=== PATIENT | female | born 1960 | race Caucasian/White ===

== ENCOUNTER 2016-09-13 16:51 | Inpatient (IN) ==
[2016-09-13] MEDS ORDERED: 0.9 % Sodium Chloride 1,000 ML IVC ONE (17:18)
[2016-09-13] MEDS ORDERED: Ipratropium/Albuterol Neb 3 ML IH ONE ×2 (17:18→18:46)
[2016-09-13] MEDS ORDERED: methylPREDNISolone 125 MG/2 ML VIAL IVP ONE (17:18)
--- NOTE | 2016-09-13 17:31 | Emergency Department Note ---
Disposition Clinical Impression: Acute exacerbation of chronic obstructive airways disease, Acute exacerbation of COPD with asthma, Elevated troponin Acute respiratory failure Qualifiers: Respiratory failure complication: hypoxia Qualified Code(s): J96.01 - Acute respiratory failure with hypoxia Disposition: Admitted As Inpatient Condition: Critical Time of Disposition: 20:00 SOB HPI - General Chief Complaint: ED Shortness of Breath/Dyspnea Stated Complaint: SOB Time Seen by Provider: 09/13/16 16:56 Source: patient, EMS Limitations: no limitations Nursing Notes Reviewed: Yes Vital Signs Reviewed: Yes - History of Present Illness Mrs. Kirkland, a 56yo female, presents from home via POV with concerns of dyspnea. Onset last night with accessory muscle use and pursed lip breathing. Preceeded by appx 1 month of productive cough and "cold" symptoms. Hx asthma and everyday smoker; symptoms not improved with rescue albuterol inhaler. She has no formal diagnosis of COPD. ROS: Positive: Dyspnea, productive cough, respiratory distress Negative: Fever, chills, nausea, vomiting, chest pains, palpitations, back pains , diaphoresis, abdominal pains, changes in bowel or bladder, confusion, dizziness, weakness. - Related Data Home Medications Medication Instructions Recorded Confirmed No Known Home Drugs 09/13/16 09/13/16 Allergies Allergy/AdvReac Type Severity Reaction Status Date / Time No Known Allergies Allergy Verified 09/13/16 18:14 All systems ED: reviewed and negative except as stated. Past Medical History - Past Medical History Medical history: Reports: asthma, hypertension Psychiatric history: Reports: no psych history - Social History Smoking Status: Current every day smoker Smokeless Tobacco Status: No Alcohol use: Reports: none Drug use: Reports: none Physical Exam Vital Signs Reviewed General: Patient is alert, oriented, and in no acute distress. HEENT: No facial asymmetry. Head is normocephalic and atraumatic. PERRLA. Oral mucosa tacky. Trachea midline. Cardiovascular: Heart regular rate and rhythm without clicks, rubs, gallops, or murmurs. No JVD. PMI nondisplaced. Respiratory: Symmetric chest rise with good respiratory effort. Prolonged expiratory phase. Bilateral breath sounds have diffuse wheezing with bibasilar crackles area Abdomen: Scaphoid. Bowel sounds present normoactive x-4 quadrants. Abdomen is soft, nondistended, and nontender. No organomegaly noted. Skin: Warm, dry, intact. Psych: Patient's affect is appropriate for situation. - General Limitations: no limitations General appearance: alert, in no apparent distress Course Course Narrative: Patient presents from home with dyspnea which became acutely worsened last night. History of asthma and current every day smoker; no home oxygen use. Physical exam is concerning for bilateral pneumonia. Chest x-ray does not show pneumonia. Patient is to make an hypoxic - will CTA looking for PE. CTA unremarkable for PE. Lab work is returning. She has leukocytosis of 15.8. She does have elevated troponin of 0.18 without EKG changes. ABG shows hypoxia of 87% on room air. Chest X-Ray 09/13/16 17:18 IMPRESSION: Lungs are mildly hyperinflated with no definite acute disease. D/ / Fly Lynne MD / Fly Lynne MD Interpreting Provider: Fly Lynne MD Chest CTA 09/13/16 18:07 IMPRESSION: No evidence of pulmonary embolism or acute pulmonary abnormality. D/ / Rajat Rajput MD / Rajat Rajput MD Interpreting Provider: Rajat Rajput MD Patient reevaluated. She is markedly improved after nebulizers. Continues to be in respiratory distress; will place on BiPAP. She appears much more comfortable on BiPAP. Spoke with the admitting hospitalist who agrees to accept the patient for continued management. Impression: Acute exacerbation of COPD, acute respiratory failure with hypoxia, elevated troponin Vital Signs Temperature 97.7 F 09/13/16 16:52 Pulse Rate 61 09/13/16 16:52 Respiratory Rate 22 09/13/16 16:52 Blood Pressure 123/73 09/13/16 16:52 O2 Sat by Pulse Oximetry 100 09/13/16 16:52 Temperature 97.7 F 09/13/16 16:52 Pulse Rate 99 09/13/16 18:59 Respiratory Rate 25 09/13/16 19:55 Blood Pressure 100/87 09/13/16 18:59 O2 Sat by Pulse Oximetry 100 09/13/16 19:55 Oxygen Delivery Oxygen Delivery Nasal Cannula Shortness of Breath/Dyspnea - Medical Records Medical records reviewed: Yes I reviewed the patient's medical records. - Lab Data Lab results reviewed: Yes I reviewed the patient's lab results. Result diagrams: 09/13/16 17:28 09/13/16 17:28 Lab Results 09/13/16 09/13/16 09/13/16 Range/Units 17:28 17:28 17:28 WBC 15.8 H (4.3-11.1) K/mcL RBC 4.60 (3.82-4.97) M/mcL Hgb 14.2 (11.5-15.4) g/dL Hct 41.7 (35.3-44.9) % MCV 90.7 (83.0-100.0) fL MCH 30.9 (28.0-33.3) pg MCHC 34.1 (31.6-35.5) g/dL RDW 12.9 (11.5-14.5) % Plt Count 295 (140-400) K/mcL MPV 9.1 L (9.4-12.4) fL Immature Gran % 0.3 (0-4) % Seg Neutrophils % 74.6 % Lymphocytes % 12.4 % Monocytes % 5.1 % Eosinophils % 7.2 % Basophils % 0.4 % Neutrophils # 11.7 H (1.6-8.9) K/mcL Lymphocytes # 2.0 (0.6-4.6) K/mcL Monocytes # 0.8 (0.0-1.3) K/mcL Eosinophils # 1.1 H (0.0-0.6) K/mcL Basophils # 0.1 (0.0-0.2) K/mcL Immature Plt Fraction 2.5 (1.1-6.1) % ABG pH (7.32-7.45) pH Units ABG pCO2 (35-45) mmHg ABG pO2 (85-104) mmHg ABG HCO3 (21-27) mEQ/L ABG Total CO2 (20-26) mEq/L ABG O2 Saturation (95-98) % ABG Base Excess (-2.0 to 3.0) mEq/L Blood Gas Modality Inspired O2 % Sodium 140 (136-145) mEq/L Potassium 3.7 (3.5-4.5) mEq/L Chloride 107 (98-109) mEq/L Carbon Dioxide 23 (19-29) mEq/L BUN 22 H (7-20) mg/dL Creatinine 0.62 (0.57-1.11) mg/dL Est GFR ( Amer) > 60 (> 60) Est GFR (Non-Af Amer) > 60 (> 60) BUN/Creatinine Ratio 35 H (6-26) Glucose 101 H (70-99) mg/dL Calculated Osmolality 293 (280-300) Lactic Acid 1.5 (0.5-2.2) mmol/L Calcium 9.3 (8.6-10.8) mg/dL Troponin I (0-0.03) ng/mL B-Natriuretic Peptide (0-100) pg/mL 09/13/16 09/13/16 09/13/16 Range/Units 17:28 17:28 19:41 WBC (4.3-11.1) K/mcL RBC (3.82-4.97) M/mcL Hgb (11.5-15.4) g/dL Hct (35.3-44.9) % MCV (83.0-100.0) fL MCH (28.0-33.3) pg MCHC (31.6-35.5) g/dL RDW (11.5-14.5) % Plt Count (140-400) K/mcL MPV (9.4-12.4) fL Immature Gran % (0-4) % Seg Neutrophils % % Lymphocytes % % Monocytes % % Eosinophils % % Basophils % % Neutrophils # (1.6-8.9) K/mcL Lymphocytes # (0.6-4.6) K/mcL Monocytes # (0.0-1.3) K/mcL Eosinophils # (0.0-0.6) K/mcL Basophils # (0.0-0.2) K/mcL Immature Plt Fraction (1.1-6.1) % ABG pH 7.34 (7.32-7.45) pH Units ABG pCO2 41 (35-45) mmHg ABG pO2 56 L (85-104) mmHg ABG HCO3 22.1 (21-27) mEQ/L ABG Total CO2 23.4 (20-26) mEq/L ABG O2 Saturation 87 L (95-98) % ABG Base Excess -3.5 L (-2.0 to 3.0) mEq/L Blood Gas Modality RA Inspired O2 21 % Sodium (136-145) mEq/L Potassium (3.5-4.5) mEq/L Chloride (98-109) mEq/L Carbon Dioxide (19-29) mEq/L BUN (7-20) mg/dL Creatinine (0.57-1.11) mg/dL Est GFR ( Amer) (> 60) Est GFR (Non-Af Amer) (> 60) BUN/Creatinine Ratio (6-26) Glucose (70-99) mg/dL Calculated Osmolality (280-300) Lactic Acid (0.5-2.2) mmol/L Calcium (8.6-10.8) mg/dL Troponin I 0.18 H* (0-0.03) ng/mL B-Natriuretic Peptide 69 (0-100) pg/mL - EKG Data EKG attestation: Yes I reviewed and interpreted this EKG. EKG results narrative: EKG dated 09/13/16 at 17:25 interpreted as sinus rhythm with a rate of 63. Normal intervals IL 133, QRS 76, QT/QTC 43/411. Normal axis. Possible subtle ST depression in V4 and V5. Otherwise nonspecific ST-T changes. No previous EKG for comparison. EKG dated 09/13/16 at 18:06 interpreted as sinus rhythm with a rate of 75. Normal intervals IL 142, QRS 92, QT/QTC 41/49. Normal axis. ST findings in V4 and V5 remain consistent compared to earlier EKG today. Critical Care Time Critical Care Time: Yes Total Critical Care Time: 45 Attestation: cc TIME SPENT IN AIRWAY MANAGEMENT WITH NEBULIZERS, MAGNESIUM, STEROIDS, NIPPV WITH BIPAP. Attestation Statement - Attestation Attestation: I examined this patient and my medical decision-making was reviewed with the BODY TECHNICIAN/PAINTER/PA/Advanced Practice Nurse/Resident Physician. I agree with the documented findings, disposition and treatment plan as described except to the extent set forth below. EVAL FOR ACS VS PE VS ASTHMA/COPD ELEVATED TROP WILL DO CTA CHEST TO EVAL FOR PE
[2016-09-13 17:36] LABS: Basophils # 0.1 K/mcL (0.0-0.2); Basophils % 0.4 %; Eosinophils # 1.1 K/mcL (0.0-0.6); Eosinophils % 7.2 %; Hematocrit 41.7 % (35.3-44.9); Hemoglobin 14.2 g/dL (11.5-15.4); Immature Granulocytes % 0.3 % (0-4); Immature Platelets 2.5 % (1.1-6.1); Lymphocytes % 12.4 %; Mean Corpuscular HGB Conc 34.1 g/dL (31.6-35.5); Mean Corpuscular Hemoglobin 30.9 pg (28.0-33.3); Mean Corpuscular Volume 90.7 fL (83.0-100.0); Mean Platelet Volume 9.1 fL (9.4-12.4); Monocytes # 0.8 K/mcL (0.0-1.3); Monocytes % 5.1 %; Neutrophils # 11.7 K/mcL (1.6-8.9); Platelet Count 295 K/mcL (140-400); Red Cell Distribution Width 12.9 % (11.5-14.5); Segmented Neutrophils % 74.6 %
[2016-09-13 17:48] LABS: BUN/Creatinine Ratio 35 (6-26); Blood Urea Nitrogen 22 mg/dL (7-20); Calcium 9.3 mg/dL (8.6-10.8); Carbon Dioxide 23 mEq/L (19-29); Chloride 107 mEq/L (98-109); Glucose 101 mg/dL (70-99); Osmolality,Calculated 293 (280-300); Potassium 3.7 mEq/L (3.5-4.5); Sodium 140 mEq/L (136-145); eGFR For African Americans > 60 (> 60); eGFR For Non-African Americans > 60 (> 60)
[2016-09-13] MEDS ORDERED: *HR* LORazepam 2 MG/ML VIAL IVP ONE ×2 (18:49→19:03)
[2016-09-13] MEDS ORDERED: Ipratropium/Albuterol Neb 3 ML ONE (19:35)
[2016-09-13 19:49] LABS: ABG Base Excess -3.5 mEq/L (-2.0 to 3.0); ABG HCO3 22.1 mEQ/L (21-27); ABG Oxygen Saturation 87 % (95-98); ABG PCO2 41 mmHg (35-45); ABG PH 7.34 pH Units (7.32-7.45); ABG PO2 56 mmHg (85-104); ABG TCO2 23.4 mEq/L (20-26)
[2016-09-13 19:51] LABS: Blood Gas FiO2 21 %
[2016-09-13] MEDS ORDERED: *HR* Enoxaparin 60 MG/0.6 ML SYRINGE SQ STA (20:02)
[2016-09-13] MEDS ORDERED: Aspirin 81 MG TAB.CHEW PO ONE (20:02)
[2016-09-13] MEDS ORDERED: Naloxone 0.4 MG/ML INJ IVP PRN (21:59)
--- NOTE | 2016-09-13 22:12 | Internal Med History&Physical ---
Date of Encounter: 09/13/16 Time of Encounter: 21:00 Assessment and Plan (1) Acute exacerbation of COPD with asthma Current visit: Yes Status: Acute Acute hypoxic respiratory failure secondary to acute exacerbation of COPD. Continue breathing treatment with albuterol and ipratropium. Continue IV Solu- Medrol Continue Symbicort and O2 via nasal cannula. Patient may need BiPAP if her O2 saturation is below 90% IV Rocephin empiric. (2) Acute respiratory failure Current visit: Yes Status: Acute Acute hypoxic respiratory failure secondary to acute COPD exacerbation Qualifiers: Respiratory failure complication: hypoxia Qualified Code(s): J96.01 - Acute respiratory failure with hypoxia (3) Elevated troponin Current visit: Yes Status: Acute Likely due to demand ischemia. No complaints of chest pain. EKG shows normal sinus rhythm. Continue Lovenox 1 mg/kg. Cardiology consultation. Continue aspirin and statin. Trend troponin. Repeat EKG in a.m. (4) Cachexia Current visit: Yes Status: Acute Consult nutrition (5) Tobacco abuse Current visit: Yes Status: Acute nicotine patch, counselled about cessation Internal Medicine - H&P: HPI Admitted From: Emergency Dept History of present illness: Ms. Kirkland is a 56 year old female with past medical history of asthma and hypertension. She is a current daily smoker. Patient presents to the ED with complaints of shortness of breath. Symptoms started last night. Worse with exertion. Patient was at work when symptoms started. Did not improve with albuterol inhaler. When she came in initially she was in distress. She required BiPAP initially but now is doing well on nasal cannula. Her O2 sat is 100%. Patient also states she has had a mild productive cough over the past 1- 2 weeks. Patient is able to provide HISTORY. Her and mother are present at bedside. Patient states she has never been diagnosed with COPD. states she she only uses albuterol inhaler. Initial ED evaluation revealed acute hypoxic respiratory failure likely due to COPD. Patient also has elevated troponin at 0.18 which is likely due to demand ischemia. White blood cell count is also 15.8. Patient is being admitted for COPD exacerbation. She has also been started on Lovenox for elevated troponin. We will trend the troponin. Patient denies any other complaints. Patient and her family members have been explained about her condition and plan of care. They understood and agreed and have no unanswered questions. Patient has been explained that we may start her back on BiPAP if her O2 sats drop. She understood and agreed. No other acute complaints. Past Med Surg Social Fam HX - Past Medical History Medical history: asthma, hypertension Psychiatric history: no psych history - Past Surgical History Surgical History: orthopedic, other (left wrist fracture repair), other (tubal ligation) - Social History Smoking Status: Current every day smoker Smokeless Tobacco Status: No Alcohol use: none Drug use: none Internal Medicine - H&P: Meds No Known Home Drugs 09/13/16 [History] Allergies No Known Allergies Allergy (Verified 09/13/16 18:14) All Systems PM: A 10-system review of systems was performed and is negative for pertinent findings except as documented above in the HPI. - Constitutional Constitutional: as per HPI, weakness - EENT Eyes: no blurry vision - Cardiovascular Cardiovascular ROS IM: dyspnea, dyspnea on exertion, no chest pain, no palpitations - Respiratory Respiratory: cough, dyspnea, dyspnea on exertion, wheezing, no hemoptysis - Gastrointestinal Gastrointestinal: no abdominal pain, no bloating, no diarrhea - Musculoskeletal Musculoskeletal ROS IM: as per HPI - Neurological Neurological ROS: no abnormal speech, no focal weakness - Constitutional Vitals: Temp Pulse Resp BP Pulse Ox 97.6 F 88 24 113/71 100 09/13/16 21:35 09/13/16 21:35 09/13/16 21:35 09/13/16 21:35 09/13/16 21:58 General appearance: Present: cachectic, A&O X 3, underweight, answers questions appropriately. Absent: no acute distress (mil distress) - Head Head exam: Present: atraumatic - ENT ENT exam: Present: mucous membranes dry - Neck Neck exam general surgery: Present: supple - Respiratory Respiratory exam: Present: accessory muscle use, respiratory distress (mild), rhonchi (mild b/l), wheezes (b/l). Absent: chest wall tenderness - Cardiovascular Cardiovascular exam: Present: +S1, +S2, tachycardia - GI/Abdominal GI/Abdominal exam: Present: soft. Absent: guarding, tenderness - Extremities Exam Extremities exam: Present: radial pulses palpable and symetrical. Absent: cyanotic, tenderness - Neurological Exam Neurological exam: Present: alert, oriented X3, no focal deficits. Absent: speech deficit Internal Med - H&P Results - Labs CBC & Chem 7: 09/13/16 17:28 09/13/16 17:28
[2016-09-13] MEDS: methylPREDNISolone 125 MG/2 ML VIAL IVP SCH (22:46)
[2016-09-13] MEDS: Nicotine 21 MG PATCH.TD24 TD SCH (22:47)
[2016-09-14] MEDS ORDERED: Albuterol 2.5 MG/3 ML NEBULIZER IH SCH
[2016-09-14] MEDS ORDERED: Ipratropium Neb 0.5 MG NEBULIZER IH SCH
[2016-09-14] MEDS: Ipratropium/Albuterol Neb 3 ML IH SCH ×7 (00:10→23:29)
[2016-09-14 01:34] LABS: Hematocrit 37.9 % (35.3-44.9); Hemoglobin 12.8 g/dL (11.5-15.4); Mean Corpuscular HGB Conc 33.8 g/dL (31.6-35.5); Mean Corpuscular Hemoglobin 30.7 pg (28.0-33.3); Mean Corpuscular Volume 90.9 fL (83.0-100.0); Mean Platelet Volume 9.7 fL (9.4-12.4); Platelet Count 253 K/mcL (140-400); Red Blood Count 4.17 M/mcL (3.82-4.97); Red Cell Distribution Width 12.9 % (11.5-14.5)
[2016-09-14 01:38] LABS: INR 1.1; Prothrombin Time 11.9 Seconds (9.4-12.1)
[2016-09-14 01:41] LABS: Activated Partial Thrombo Time 35.9 Seconds (26.0-36.0)
[2016-09-14 01:50] LABS: BUN/Creatinine Ratio 33 (6-26); Blood Urea Nitrogen 20 mg/dL (7-20); Calcium 8.6 mg/dL (8.6-10.8); Carbon Dioxide 23 mEq/L (19-29); Chloride 111 mEq/L (98-109); Glucose 159 mg/dL (70-99); Osmolality,Calculated 298 (280-300); Potassium 3.9 mEq/L (3.5-4.5); Sodium 141 mEq/L (136-145); eGFR For African Americans > 60 (> 60); eGFR For Non-African Americans > 60 (> 60)
[2016-09-14] MEDS: methylPREDNISolone 125 MG/2 ML VIAL IVP SCH ×4 (05:08→23:57)
[2016-09-14] MEDS ORDERED: *HR* Enoxaparin 60 MG/0.6 ML SYRINGE SQ SCH (07:00)
--- NOTE | 2016-09-14 09:32 | Internal Med Progress Note ---
<Bandar Medina - Last Filed: 09/14/16 14:42> Date of Encounter: 09/14/16 Time of Encounter: 09:32 - Assessment and plan (1) Acute respiratory failure Current Visit: Yes Status: Acute Assessment and plan: Patient presents to the hospital with dyspnea, noted hypoxia and tachypnea. This is likely in the setting of an acute COPD exacerbation L the patient does not have a diagnosed history of COPD given her significant pack year history and presentation this appears to be more of a COPD-like picture that correlates with her chest CT and chest x-ray. She does have a history of asthma and only uses albuterol inhaler home and never followed up with a net coordinator in the past. - Respirate status improved significantly after administration of IV corticosteroids, scheduled DuoNeb's and starting Symbicort. - Currently requires 2 L nasal cannula oxygen in the acute setting - Clinically improved compared to admission Plan: - Continue current breathing treatments - Continue IV corticosteroids until respiratory status is improved, with plans to switch to oral prednisone - Continue current antibiotic treatment with ceftriaxone. - Continue to wean oxygen as tolerated - Patient will be scheduled to follow-up with pulmonology post discharge - Patient will need outpatient PFT evaluation Qualifiers: Respiratory failure complication: hypoxia Qualified Code(s): J96.01 - Acute respiratory failure with hypoxia (2) Acute exacerbation of COPD with asthma Current Visit: Yes Status: Acute Assessment and plan: As discussed above. (3) Elevated troponin Current Visit: Yes Status: Acute Assessment and plan: Patient was admitted with tachypnea, shortness of breath and troponin of 0.18. Troponins elevated to a high of 1.0 and then trended back to 0.8. Patient denies any chest pain, chest pressure, nausea vomiting diarrhea constipation. She has any history of cardiac disease, hypertension, hyperlipidemia, diabetes. - There is no documentation of hypoxia or a low O2 sat. No other significant explanation for her elevation in troponin levels. - EKG reviewed demonstrates normal sinus rhythm and an appropriate axis and rate. - JIN score of 1 Plan: - Cardiology is following this patient and plan for cardiac catheterization tomorrow - Echocardiogram was ordered with results pending. - Nothing by mouth after midnight - Patient on aspirin, statin, beta vandana (4) Cachexia Current Visit: Yes Status: Acute Assessment and plan: Patient has a BMI of 18.1, patient denies any recent history of unintentional weight loss, she said she has been roughly the same weight for the past several years with fluctuation 1 or 2 pounds. (5) Tobacco abuse Current Visit: Yes Status: Acute Assessment and plan: Current every day smoker with a [id number] history - Smoking cessation discussed with the patient. - Subjective Interval history: This Isael 56-year-old female seen and evaluated patient bedside this morning. She still feels very short of breath but much improved compared to yesterday. In further discussion regarding her current admission she states that she was diagnosed with asthma 5 years ago and was provided albuterol inhaler to use as needed. Over the last year she has been feeling more short of breath and using her inhaler increased increments. In the last 2 weeks she has been very short of breath daily exacerbated with activity with a green- colored's productive sputum. She has been using her albuterol inhaler frequently throughout the day with very minimal relief of her symptoms. She had gone on vacation to [place] during this time returned and noticed that the dry warm heat actually had improved her breathing status. Last evening she became very short of breath. She does smoke 1 pack of cigarettes per day for the last 30 years. She had difficulty breathing and felt she could not sleep because she felt she was given dye prior to admission. She has multiple animals on her property including multiple cats, dogs and cows. 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 She has a history of COPD diagnosis. - Constitutional Vitals: Temp Pulse Resp BP Pulse Ox 97.5 F L 93 16 118/72 100 09/14/16 07:23 09/14/16 07:23 09/14/16 07:23 09/14/16 07:23 09/14/16 07:23 General appearance: Present: cachectic, A&O X 3, underweight, answers questions appropriately. Absent: no acute distress (mil distress) Exam: General: Patient alert, awake, oriented 3, interactive, in no acute distress. Patient is very thin, skin is very [place] HEENT: Normocephalic, atraumatic, pupils equal reactive to light, nasal cavity patent and open septum median position, oral mucosa moist, uvula midline, neck supple trachea midline no palpable lymphadenopathy, no thyromegaly. Chest: Symmetric bilateral correlating with respiratory effort, effort nonlabored. Cardiac: Regular rate and rhythm, positive S1, S2, no bruits appreciated bilateral carotids, Radial pulses 2+ bilateral, posterior tibial and dorsal pedal pulses 2+ bilateral. Respiratory: Diffusely diminished bronchovesicular breath sounds without audible wheezing at this encounter. Abdomen: Soft, nontender, positive bowel sounds, no palpable masses appreciated on examination Extremities: Symmetric bilateral, no erythema or edema, patient moving all 4 extremities spontaneously. Neurologic: No focal deficits appreciated on examination. Face symmetric, muscle strength symmetric bilateral upper and lower extremities. Internal Medicine: Result - Labs CBC & Chem 7: 09/14/16 00:17 09/14/16 00:17 Labs: Short CBC 09/14/16 Range/Units 00:17 WBC 8.0 (4.3-11.1) K/mcL Hgb 12.8 (11.5-15.4) g/dL Hct 37.9 (35.3-44.9) % Plt Count 253 (140-400) K/mcL BMP 09/14/16 00:17 Sodium 141 Potassium 3.9 Chloride 111 H Carbon Dioxide 23 BUN 20 Creatinine 0.61 Glucose 159 H Calcium 8.6 Cardiac Enzymes 09/14/16 09/14/16 Range/Units 00:17 07:41 Troponin I 1.03 H* 0.88 H* (0-0.03) ng/mL - ABG Interpretation ABG results: ABG ABG pH 7.34 pH Units (7.32-7.45) 09/13/16 19:41 ABG pCO2 41 mmHg (35-45) 09/13/16 19:41 ABG pO2 56 mmHg (85-104) L 09/13/16 19:41 ABG O2 Saturation 87 % (95-98) L 09/13/16 19:41 PT/INR, D-dimer PT 11.9 Seconds (9.4-12.1) 09/14/16 00:17 Consult Discharge Plan - Plan Referrals: NO,PCP [Primary Care Provider] - <Jorge Luis Schaefer - Last Filed: 09/14/16 19:00> Date of Encounter: 09/14/16 - Constitutional Vitals: Temp Pulse Resp BP Pulse Ox 97.9 F 74 16 115/75 100 09/14/16 15:45 09/14/16 15:45 09/14/16 15:45 09/14/16 15:45 09/14/16 15:45 Internal Medicine: Result - Labs CBC & Chem 7: 09/14/16 00:17 09/14/16 00:17 Labs: Short CBC 09/14/16 Range/Units 00:17 WBC 8.0 (4.3-11.1) K/mcL Hgb 12.8 (11.5-15.4) g/dL Hct 37.9 (35.3-44.9) % Plt Count 253 (140-400) K/mcL BMP 09/14/16 00:17 Sodium 141 Potassium 3.9 Chloride 111 H Carbon Dioxide 23 BUN 20 Creatinine 0.61 Glucose 159 H Calcium 8.6 Cardiac Enzymes 09/14/16 09/14/16 09/14/16 Range/Units 00:17 07:41 11:37 Troponin I 1.03 H* 0.88 H* 0.69 H* (0-0.03) ng/mL - ABG Interpretation ABG results: ABG ABG pH 7.34 pH Units (7.32-7.45) 09/13/16 19:41 ABG pCO2 41 mmHg (35-45) 09/13/16 19:41 ABG pO2 56 mmHg (85-104) L 09/13/16 19:41 ABG O2 Saturation 87 % (95-98) L 09/13/16 19:41 PT/INR, D-dimer PT 11.9 Seconds (9.4-12.1) 09/14/16 00:17 - Attending Attestation I examined this patient and my medical decision-making was reviewed with the BODY ENGINEER/PA/Advanced Practice Nurse/Resident Physician. I agree with the documented findings, disposition and treatment plan as described except to the extent set forth below.
[2016-09-14] MEDS: Acetaminophen 325 MG TABLET PO PRN (09:33)
[2016-09-14] MEDS: Aspirin 81 MG TAB.CHEW PO SCH (09:33)
[2016-09-14] MEDS: Famotidine 20 MG TABLET PO SCH ×2 (09:33→20:54)
[2016-09-14] MEDS: Nicotine 21 MG PATCH.TD24 TD SCH (09:34)
--- NOTE | 2016-09-14 10:11 | Cardiology Consult Note ---
<Fady Sifuentes Jana - Last Filed: 09/14/16 10:31> Date of Encounter: 09/14/16 Time of Encounter: 10:10 Assessment and Plan (1) Elevated troponin Current Visit: Yes Status: Acute Troponin elevation 0.18, 1.03, 0.88. NSTEMI vs type II GA in the setting of asthma attack. Spo2 87% on admission. C/o chest pain. Cardiac risk factors include HTN and tobacco abuse. Check TTE. I discussed LHC vs medical management. Indication, risk, benefits, and alternatives of LHC reviewed. further recommendation to follow. risk factor modification. Smoking cessation. Continue asa and bb. Check lipid panel, (2) Acute exacerbation of COPD with asthma Current Visit: Yes Status: Acute No formal diagnosis of COPD. H/o asthma and tobacco use. Discussion w patient/family: The assessment and plan as outlined above was discussed with the patient and/or family members who expressed understanding and agreement. All questions were answered. Thank you for involving us in the care of your patient. Please call with any questions. History of Present Illness Consult date: 09/14/16 Consult reason: Elevated troponin Chief complaint: SOB and cough History of present illness: Ms. Kirkland is a 56 year old female with a history of asthma, hypertension, and tobacco use who presented with dry cough and SOB for two weeks. Over the last two days SOB increased. She c/o a mid-sternal dull ache that increased when she was SOB. C/o orthopnea. Denies weight gain or edema. She also c/o diaphoresis. Chest pain improved when her breathing improved. On my exam she c/o dull ache in her chest. The pain does not increase with deep breaths or cough and does not change with exertion. She presented to the ER with hypoxic respiratory distress. SPO2 on ABG was 87%. CTA of the chest was negative for PE. CXR showed no acute findings, lungs were mildly inflated. She was initially treated with bipap. She is currently on 2L NC. Mild distress noted. Past Med Surg Social Fam HX - Past Medical History Medical history: asthma, hypertension Psychiatric history: no psych history - Past Surgical History Surgical History: orthopedic, other (left wrist fracture repair), other (tubal ligation) - Social History Smoking Status: Current every day smoker Packs per day: 1 Smokeless Tobacco Status: No Alcohol use: none Drug use: none Medications and Allergies Albuterol Sulfate [Albuterol Inhaler] 2 puff IH Q6HR PRN 09/14/16 [History] Amitriptyline [Elavil] 25 mg PO DAILY 09/14/16 [History] Estradiol [Estrace] 1 mg PO DAILY 09/14/16 [History] Gabapentin [Neurontin] 300 mg PO TID 09/14/16 [History] Montelukast [Singulair] 10 mg PO HS 09/14/16 [History] Progesterone,Micronized [Progesterone] 200 mg PO DAILY 09/14/16 [History] Allergies No Known Allergies Allergy (Verified 09/13/16 18:14) All Systems Review: A 10-system review of systems was performed and is negative for pertinent findings except as documented above in the HPI. Physical Examination Vital Signs, Last 4 Hours Temp Pulse Resp BP Pulse Ox 09/14/16 07:23 97.5 F L 93 16 118/72 100 General: Conversant, No Apparent Distress HEENT: Atraumatic, Normocephaly, Mucus Membranes Moist Neck: No JVD, Normal carotid pulses Cardiac: Reg Rate and Rhythm, Normal S1 and S2, No Murmur Lungs: Other (Respirations slightly labored. inspiratory wheezes noted. ) Neuro: Alert and responsive, No focal deficits noted Abdomen: Soft, Non-Tender Skin: No rashes noted on visualized skin Musculoskeletal: No Chest Wall Tenderness Extremities: No Clubbing, No Cyanosis, No Edema, Normal Pulses Results 09/14/16 00:17 09/14/16 00:17 Lab Results 09/14/16 09/14/16 09/14/16 00:17 00:17 00:17 WBC 8.0 Hgb 12.8 Hct 37.9 Plt Count 253 INR 1.1 APTT 35.9 Sodium Potassium Chloride Carbon Dioxide BUN Creatinine Glucose Calcium Troponin I 1.03 H* 09/14/16 09/14/16 00:17 07:41 WBC Hgb Hct Plt Count INR APTT Sodium 141 Potassium 3.9 Chloride 111 H Carbon Dioxide 23 BUN 20 Creatinine 0.61 Glucose 159 H Calcium 8.6 Troponin I 0.88 H* - Imaging and Cardiology Echo: pending - EKG Interpretation EKG results cardiology: personally reviewed (SR with no acute ST changes.) Consult Discharge Plan - Plan Referrals: NO,PCP [Primary Care Provider] - <Terri Posada - Last Filed: 09/14/16 16:25> Date of Encounter: 09/14/16 Assessment and Plan Discussion w patient/family: The assessment and plan as outlined above was discussed with the patient and/or family members who expressed understanding and agreement. All questions were answered. Thank you for involving us in the care of your patient. Please call with any questions. History of Present Illness History of present illness: Ms. Kirkland is a 56 year old female All Systems Review: A 10-system review of systems was performed and is negative for pertinent findings except as documented above in the HPI. Physical Examination Vital Signs, Last 4 Hours Temp Pulse Resp BP Pulse Ox 09/14/16 15:45 97.9 F 74 16 115/75 100 Results 09/14/16 00:17 09/14/16 00:17 Lab Results 09/14/16 09/14/16 09/14/16 00:17 00:17 00:17 WBC 8.0 Hgb 12.8 Hct 37.9 Plt Count 253 INR 1.1 APTT 35.9 Sodium Potassium Chloride Carbon Dioxide BUN Creatinine Glucose Calcium Troponin I 1.03 H* 09/14/16 09/14/16 09/14/16 00:17 07:41 11:37 WBC Hgb Hct Plt Count INR APTT Sodium 141 Potassium 3.9 Chloride 111 H Carbon Dioxide 23 BUN 20 Creatinine 0.61 Glucose 159 H Calcium 8.6 Troponin I 0.88 H* 0.69 H* - Attending Attestation I examined this patient and my medical decision-making was reviewed with the ASSISTANT FINANCIAL ACCOUNTANT/PA/Advanced Practice Nurse/Resident Physician. I agree with the documented findings, disposition and treatment plan. Ms. Kirkland presented with respiratory distress and mid sternal ache. Incidentally, her troponin was elevated and we discussed consideration of LHC. She has some mild respiratory distress at bedside. Recommend improving pulmonary status before considering LHC. We discussed R/B/A of the procedure. The patient would like to discuss with family. Continue anticoagulation, statin , BB, aspirin.
[2016-09-14] MEDS: Budesonide/Formoterol 160/4.5 MDI IH SCH ×2 (11:55→21:08)
[2016-09-14 12:09] LABS: Chol/HDL Ratio 3.6 (0-4.9)
--- NOTE | 2016-09-14 14:26 | Electrocardiograph Report ---
[place] [address] Test Date: 2016-09-13 Pat Name: Jaja Kirkland Department: 102 Room: 2NE31 Gender: F Behavior Management Specialist: Ekp : 1960 Requested By: Baljeet Robb Order Number: [id number] Reading MD: Estuardo Lopez MD Measurements Intervals [place] Rate: 75 P: 73 TN: 142 QRS: 66 QRSD: 92 T: 66 QT: 401 QTc: 429 Interpretive Statements SINUS RHYTHM WITH SINUS ARRHYTHMIA ANTEROSEPTAL MYOCARDIAL INFARCTION, OF INDETERMINATE AGE Electronically Signed On 09-14-2016 14:25:04 EDT by Estuardo Lopez MD
--- NOTE | 2016-09-14 14:26 | Electrocardiograph Report ---
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
--- NOTE | 2016-09-14 17:57 | Electrocardiograph Report ---
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
[2016-09-15] MEDS: Ipratropium/Albuterol Neb 3 ML IH SCH ×6 (04:04→23:13)
[2016-09-15] MEDS: methylPREDNISolone 125 MG/2 ML VIAL IVP SCH ×3 (05:59→16:52)
[2016-09-15] MEDS: *HR* Enoxaparin 40 MG/0.4 ML SYRINGE SQ SCH (06:00)
[2016-09-15] MEDS: Famotidine 20 MG TABLET PO SCH ×2 (07:50→22:14)
[2016-09-15] MEDS: Aspirin 81 MG TAB.CHEW PO SCH (07:50)
[2016-09-15] MEDS: Nicotine 21 MG PATCH.TD24 TD SCH (07:50)
[2016-09-15] MEDS: Budesonide/Formoterol 160/4.5 MDI IH SCH ×2 (07:58→20:31)
[2016-09-15] MEDS: Acetaminophen 325 MG TABLET PO PRN (08:03)
--- NOTE | 2016-09-15 09:52 | Pre-Sedation Evaluation ---
Pre-sedation evaluation - Pre-sedation checklist Date of procedure: 09/15/16 Procedure: heart cath Recent Vitals: Last Vital Signs Temp 97.8 F 09/15/16 07:22 Pulse 78 09/15/16 07:22 Resp 16 09/15/16 08:00 BP 125/73 09/15/16 07:22 Pulse Ox 93 09/15/16 08:00 H&P (including ROS) documented in medical record: Yes Previous reaction to sedatives/anesthetics: No Dietary Status: NPO after Midnight Dentition: No loose teeth or bridges ASA Classification *see protocol: CLASS II-Mild systemic disease Plan of Care: Pt appropriate candidate for procedure/moderate/conscious sedation , Risks/benefits of procedure/sedation discussed w/ patient/family
[2016-09-15] MEDS ORDERED: *HR* Ticagrelor 90 MG TABLET PO ONE (09:53)
--- NOTE | 2016-09-15 09:59 | Event Note ---
Date of Encounter: 09/15/16 Time of Encounter: 08:30 - Cardiology Event Note Per cardiology: -Patient admitted with respiratory distress. NSTEMI, troponin peak 1.03. Patient states breathing has improved today. Patient states she is able to lay flat for up to 6 hours for LHC. Risks versus benefits of LHC explained to patient and family. Patient agreeable for LHC. All questions answered. Discussed with and .
[2016-09-15] MEDS ORDERED: Verapamil 5 MG/2 ML VIAL ONE (11:10)
[2016-09-15] MEDS ORDERED: 0.9 % Sodium Chloride 1,000 ML ONE ×2 (11:10→11:59)
[2016-09-15] MEDS ORDERED: *HR* Heparin 10,000 UNIT/10 ML VIAL ONE (11:11)
[2016-09-15] MEDS ORDERED: Nitroglycerin 1,000 MCG/10 ML VIAL IV ONE (11:11)
[2016-09-15] MEDS ORDERED: Heparin 1,000 UNITS/500 mL NS 500 ML ONE (11:11)
[2016-09-15] MEDS ORDERED: *HR* Midazolam HCl 5 MG/5 ML VIAL IVP ONE (11:58)
[2016-09-15] MEDS ORDERED: *HR* FentaNYL (PF) 100 MCG/2 ML VIAL ONE (11:58)
--- NOTE | 2016-09-15 12:46 | Invasive Diagnostic Lab Proc ---
Name: Jaja Kirkland Date of Study: 09/15/2016 Date: 1960 Ht: 62.9in Medical Record#: [id number] Age: 56 Wt: 104.06lb Gender: Female BSA: 1.46 Order #: [id number] BMI: 18.48 Physicians Procedure Physician: Estuardo Lopez MD, FACC Referring MD: Referring MD: Staff Name Position Time In Tanya Hooker RT (R) Monitor 11:52 AM MorroAlberto RT (R) Scrub 11:52 AM Shakira Negron RN Health Spa Manager 11:52 AM Indications Indication Non-Stemi Procedures Performed Procedure L HRT ARTERY/VENTRICLE ANGIO Pre-Procedure Checklist Informed consent is complete signed and on chart. H\\T\\P is on chart. ID band is on and ID verified with patient. Patient NPO for procedure The procedure was described for the patient and questions were answered. ECG is on chart. Plan of Care Patient will tolerate the procedure without complications. Adequate level of comfort will be maintained. Hemodynamics will remain stable Patient will recover from procedure without complications. Respiratory function will be maintained. Cardiac rhythm will remain stable. Patient temperature will be maintained. Patient and/or family have verbalized understanding of the procedure. Patient Education Chief Complaint/Reason for Test: Cardiac Cath Developmental Category: Adult (18-64 years) Developmentally Appropriate for Age: Yes Learning Barriers: None Education Needs: Procedure Education Method: Verbal Information Taught: Cardiac Cath Educational Evaluation: Able to repeat information Intravenous Access Time IV Size Location DC'd Fluid/Drip Rate Units RN 11:45 AM 20g 1 1/4" Patent On Arrival Rt Antecubital 0.9NaCl 25 ml/hr Shakira Negron RN Allergies No Known Allergies Vital Signs Time BP (mmHg) HR (bpm) O2 Sat. RR (bpm) LOC 12:03 PM / % 5 = Fully awake and oriented or at pre-proc level 12:03 PM 142 / 74 84 89 % 14 12:08 PM 132 / 89 67 100 % 10 12:13 PM 133 / 81 84 91 % 15 12:19 PM 189 / 150 96 97 % 16 12:23 PM 129 / 79 125 97 % 21 12:29 PM 98 / 51 109 100 % 19 Procedural Medications Time Medication Dose Units Method Given By 12:04 PM Versed 2 mg Intravenous Shakira Negron RN 12:04 PM Fentanyl 50 mcg Intravenous Shakira Negron RN 12:03 PM Oxygen 4 L/min nasal cannula Shakira Negron RN 12:10 PM Versed 1 mg Intravenous Shakira Negron RN 12:10 PM Fentanyl 25 mcg Intravenous Shakira Negron RN 12:13 PM Lidocaine 2% 0.5 ml Subcutaneous Estuardo Lopez MD, FACC 12:17 PM Heparin 4000 units Nitroglycerin 200 mcg Verapamil 2.5 mg Intraarterial Estuardo Lopez MD, FAC 12:17 PM Versed 1 mg Intravenous Shakira Negron RN 12:17 PM Fentanyl 25 mcg Intravenous Shakira Negron RN 12:19 PM Benadryl 25 mg Intravenous Shakira Negron RN ASA Classification: CLASS II- Mild systemic disease (i.e. well-controlled diabetes, hypertension, asthma, cigarette smoking) Nasreen Score Preprocedure Postprocedure Activity 2- Moves 4 extremities sustained head lift Activity 2- Moves 4 extremities sustained head lift Circulation 2- SBP +/= 20 points of pre-anesthetic level Circulation 2- SBP +/= 20 points of pre-anesthetic level Consciousness 2- Awake and alert oriented x 3 Consciousness 2- Awake and alert oriented x 3 O2 Saturation 2- Able to maintain O2 satruation of 92% on room air O2 Saturation 2- Able to maintain O2 satruation of 92% on room air Respiratory 2- Able to deep breathe and cough well Respiratory 2- Able to deep breathe and cough well Total Score 10 Total Score 10 Contrast Agent: Isovue Diagnostic Contrast: 39 ml Total Contrast: 39 ml Fluoro Dose: 27 mGy Procedure Log Time Note Enter By 11:51 AM Pt arrived to cheesemaking laborer 2 at 11:51 twilson 11:51 AM Physician arrived 11:51 twilson 11:51 AM Meet and greet completed twilson 11:51 AM Sign in performed according to hospital policy. twilson 11:51 AM Procedure start 11:51 twilson 11:51 AM ASA Class CLASS II- Mild systemic disease (i.e. well-controlled diabetes, hypertension, asthma, cigarette smoking) twilson 11:51 AM Patient charges- Angio tray pack, Navilyst 3mm J, Pulse Oximetry and ACIST tubing and transducer twilson 11:52 AM Tanya Hooker RT (R) Position: Monitor Time in: 11:52 twilson 11:52 AM Alberto Hooker (R) Position: Scrub Time in: 11:52 twilson 11:52 AM Shakira Negron RN Position: Health Spa Manager Time in: 11:52 twilson 11:59 AM CathStat 12:02 PM Vitals capture started with the following parameters, Patient=Adult, Interval=5 min, Initial Lhbjimah=671 mmHg, Deflation Rate=5 mmHg, Cuff placed on Right Arm 12:02 PM Case Delayed no twilson 12:03 PM Hair removed from procedure site in procedure lab using clippers. Right wrist prepped with Chloraprep by Alberto Hooker (R), safety strap applied then patient was draped. Skin intact. twilson 12:03 PM Hair removed from procedure site in procedure lab using clippers. Right groin prepped with Chloraprep by Alberto Hooker (R), safety strap applied then patient was draped. Skin intact. twilson 12:03 PM Time: 12:03 Oxygen on at 4 L/min per nasal cannula [facility] 12:03 PM HR=84 bpm, STEC=784/74 mmhg, SpO2=89.0 %, Resp=14 B/min 12:03 PM Time: 12:03 Patient comfortable and pain free: Yes twilson 12:03 PM Time: 12:03LOC: 5 = Fully awake and oriented or at pre-proc level twilson 12:04 PM Time: 12:04 Versed 2 mg Intravenous Given by [facility]ak[facility] RN [facility] 12:04 PM Time: 12:04 Fentanyl 50 mcg Intravenous Given by Shakira Negron RN [facility] 12:06 PM Pressure channel 1 zeroed. 12:08 PM HR=67 bpm, VEPO=342/89 mmhg, VdN3=800.0 %, Resp=10 B/min 12:10 PM Time: 12:10 Versed 1 mg Intravenous Given by Shakira Negron RN [facility] 12:10 PM Time: 12:10 Fentanyl 25 mcg Intravenous Given by Shakira Negron RN [facility] 12:13 PM Time out performed according to hospital policy twilson 12:13 PM HR=84 bpm, PAAU=441/81 mmhg, SpO2=91.0 %, Resp=15 B/min 12: PM Time: 12:13 0.5 ml Lidocaine 2% to right radial Subcutaneous Given by Estuardo Lopez MD, [facility] twilson 12:13 PM Recorded ECG: HR=82 Condition=Condition 1 12:15 PM Pressure channel 1 zero failed. 12:15 PM Pressure channel 1 zeroed. 12:17 PM Access obtained by percutaneous puncture. 5Fr 10cm Terumo Glidesheath sheath placed in right Radial artery. [id number] twilson 12:17 PM Time: 12:17 Patient given 4,000 units Heparin, 200 mcg Nitroglycerin, and 2.5 mg Verapamil Intraarterial by Estuardo Lopez MD, [facility] twilson 12:17 PM Time: 12:17 Versed 1 mg Intravenous Given by [facility] 12:17 PM Time: 12:17 Fentanyl 25 mcg Intravenous Given by Shakira Negron [facility] 12:18 PM Time: 12:03 Patient comfortable and pain free: Yes twilson 12:19 PM 5Fr TIG catheter inserted over the wire [facility] twilson 12:19 PM Catheter removed twilson 12:19 PM Time: 12:19 Benadryl 25 mg Intravenous Given by Shakira Negron [facility] 12:19 PM HR=96 bpm, YIVH=994/150 mmhg, SpO2=97.0 %, Resp=16 B/min 12:19 PM Recorded Pressure: Ao, HR=98, Condition=Condition 1 (Aorta) Ao 128/87/106 12:19 PM RCA angiography performed in multiple views. twilson 12:20 PM LCA angiography performed in multiple views. twilson 12:20 PM Recorded Pressure: Ao, HR=68, Condition=Condition 1 (Aorta) Ao 110/66/87 12:20 PM Wire reinserted twilson 12:20 PM Wire removed twilson 12:21 PM Recorded Pressure: Ao, HR=89, Condition=Condition 1 (Aorta) Ao 84/59/71 12:21 PM Tig catheter inserted into LV. twilson 12:21 PM Catheter selectively placed in left ventricle twilson 12:21 PM Bolus angiogram of left Ventricle complete: 10 ml/sec for a total of 20 mls twilson 12:21 PM Recorded Pressure: LV, DT=331, Condition=Condition 1 (Left Ventricle) LV 122/10/19 12:23 PM Recorded Pressure: LV, Ao, HR=99, Condition=Condition 1 (Left Ventricle) LV 143/3/27, (Aorta) Ao 134/78/103 12:23 PM EN=896 bpm, LQAR=826/79 mmhg, SpO2=97.0 %, Resp=21 B/min 12:23 PM Wire reinserted. twilson 12:24 PM Catheter removed twilson 12:25 PM Lesion found in Mid LAD. Pre Stenosis: 50 Pre JIN Flow: twilson 12:25 PM Lesion found in 1st Diagonal. Pre Stenosis: 50 Pre JIN Flow: twilson 12:25 PM Mid/Distal Left Anterior Descending Coronary Artery and diagonal branches with 50% stenosis. If graft is supplying this area, 0 % stenosis twilson 12:26 PM Patient has continuous coughing spells moving all extremities. twilson 12:27 PM Catheter removed twilson 12:27 PM Wire removed twilson 12:29 PM CY=543 bpm, NIBP=98/51 mmhg, QuN8=425.0 %, Resp=19 B/min 12:31 PM Lesion found in Left PDA. Pre Stenosis: 90 Pre JIN Flow: twilson 12:31 PM Circumflex, Obtuse Marginal, Left Posterior Descending, and Left Posterolateral Coronary Arteries with 90 % stenosis. If graft is supplying this area, 0 % stenosis twilson 12:31 PM Coronary Dominance: Left twilson 12:31 PM Procedure completed at 12:31 twilson 12:31 PM Sign out completed: Radiation Dose 26.63 mGy Fluoro Time: 0.8 Isovue 370 - 200ml contrast 39 ml given by Estuardo Lopez MD, [facility]. Complications: NoneCardiac Rehab Consult needed: NoConfirmed administered medications: Yes twilson 12:32 PM Isovue 370 - 200ml,1 Bottle(s) used. twilson 12:32 PM Arterial sheath pulled, Vasc Band closure device used and was Successful S/N. twilson 12:32 PM Vitals capture stopped. 12:32 PM 12 ml air in Vasc Band. twilson 12:33 PM Post Blood Pressure 129/79 twilson 12:33 PM 12:33 Post Pulses Bilateral DP \\T\\ PT 2+ twilson 12:33 PM 12:33 Post Pulses Bilateral radial 2+ twilson 12:33 PM Information taught Cardiac Cath and Vasc Band twilson 12:34 PM Education needs Procedure, Plan of Care, and Responsibilities of Patient in Care twilson 12:34 PM Learning barriers :None twilson 12:34 PM Education Methods Verbal twilson 12:34 PM Education evaluation Able to repeat information twilson 12:34 PM Site status No bleeding/hematoma - Rt Wrist as reported by Alberto Hooker RT (R) at 12:34 twilson 12:34 PM Plavix, Effient or Brilinta given No twilson 12:34 PM Delay to floor No twilson 12:34 PM Family placed in consult room. twilson 12:37 PM Report given to RN Pt taken to E Room #31. 12:37 twilson 12:37 PM Patient out of room: 12:37 twilson Complications Complication None Hemodynamics Pressures Site Systolic/A Wave Diastolic/V Wave Mean AO 128 87 106 AO 110 66 87 AO 84 59 71 LV 122 10 19 LV 143 3 27 AO 134 78 103 Post Procedure Information Blood Pressure: 129/79 mmHg Post procedural instructions were given Closure Device Time Device Success/Fail 09/15/2016 12:32:00 PM Mechanical Compression Successful Site Checks Time Location Status Staff Sheath In? Note 12:34 PM Rt Wrist No bleeding/hematoma Alberto Hooker RT (R) Pulses Time Site Pre-Procedure Post-Procedure Note 09/15/2016 11:45:00 AM Bilateral DP \\T\\ PT 2+ 12:33:00 PM Bilateral DP \\T\\ PT 2+ 12:33:00 PM Bilateral radial 2+ Updated by Tanya Hooker RT Jose RaulR) on 09/15/2016 12:39:24 PM electronically signed on 09/15/2016 12:40:38 PM with status of Final
--- NOTE | 2016-09-15 13:45 | Internal Med Progress Note ---
<Benton Hollins - Last Filed: 09/15/16 13:36> Date of Encounter: 09/15/16 Time of Encounter: 09:05 - Assessment and plan (1) Acute respiratory failure Current Visit: Yes Status: Acute Assessment and plan: Patient presents to the hospital with dyspnea, noted hypoxia and tachypnea. This is likely in the setting of an acute COPD exacerbation, though the patient does not have a diagnosed history of COPD given her significant smoking history. Her presentation appears to be that of COPD and this correlates with her chest CT and chest x-ray. She does have a history of asthma and only uses albuterol inhaler home and never followed up with a trimming caser in the past. - Respiratory status improved significantly after administration of IV corticosteroids, scheduled DuoNeb's and starting Symbicort. - Currently requires 2 L nasal cannula oxygen in the acute setting - Clinically improved compared to admission Continue current breathing treatments Continue solumedrol, with plans to switch to oral prednisone Continue current antibiotic treatment with ceftriaxone. Continue supplemental oxygen as needed, wean as tolerated Patient will be scheduled to follow-up with pulmonology post discharge Patient will need outpatient PFT evaluation Qualifiers: Respiratory failure complication: hypoxia Qualified Code(s): J96.01 - Acute respiratory failure with hypoxia (2) Acute exacerbation of COPD with asthma Current Visit: Yes Status: Acute Assessment and plan: Plan as above (3) Elevated troponin Current Visit: Yes Status: Acute Assessment and plan: Patient was admitted with tachypnea, shortness of breath and troponin of 0.18. Troponins elevated to a high of 1.0 and then trended back to 0.8. Patient denies any chest pain, chest pressure, nausea, vomiting, diarrhea, or constipation at admission. She has any history of cardiac disease, hypertension , hyperlipidemia, diabetes. There is no documentation of hypoxia or a low O2 sat. No other significant explanation for her elevation in troponin levels. EKG reviewed demonstrates normal sinus rhythm and an appropriate axis and rate. JIN score of 1 Patient underwent cardiac catheterization today Echo was performed and show a decreased EF of 40% with segmental LV systolic dysfunction Patient on aspirin, statin, beta vandana (4) Cachexia Current Visit: Yes Status: Acute Assessment and plan: Patient has a BMI of 18.1, patient denies any recent history of unintentional weight loss, she said she has been roughly the same weight for the past several years with fluctuation 1 or 2 pounds. (5) Tobacco abuse Current Visit: Yes Status: Acute Assessment and plan: Current every day smoker with a [id number] history Smoking cessation discussed with the patient Nicotine patch prn (6) DVT prophylaxis Current Visit: Yes Status: Acute Assessment and plan: 40 mg Lovenox subcutaneous daily - Subjective Interval history: Patient seen and examined this morning, she appears slightly anxious prior to undergoing catheterization.. She does feel as if her cough and feels that she has chest congestion, at the moment her cough is dry. She does report having some naus, but no vomiting. She denies chest pain, palpitations, shortness of breath - Constitutional Vitals: Temp Pulse Resp BP Pulse Ox 97.8 F 104 18 141/82 98 09/15/16 07:22 09/15/16 13:15 09/15/16 13:15 09/15/16 13:15 09/15/16 13:15 General appearance: Present: cachectic, A&O X 3, underweight, answers questions appropriately Exam: General: Cooperative, pleasant, no acute distress, alert and oriented 3, answers questions appropriately appears slightly anxious HEENT: Normocephalic, atraumatic, neck supple, trachea midline Respiratory: No accessory muscle usage, Diffuse wheezing on auscultation Cardiovascular: Regular rate and rhythm, S1 and S2 present, no murmurs/rubs/ gallops/clicks appreciated GI/abdominal: Nondistended, nontender, soft, normal bowel sounds, no peritoneal signs Extremities: No calf tenderness, noncyanotic, no pedal edema appreciated, warm, lower extremity pulses palpable and symmetrical Neurological: Alert and oriented 3, no facial droop, no focal deficits Skin: Dry, intact, normal color Internal Medicine: Result - Labs CBC & Chem 7: 09/14/16 00:17 09/14/16 00:17 - ABG Interpretation ABG results: ABG ABG pH 7.34 pH Units (7.32-7.45) 09/13/16 19:41 ABG pCO2 41 mmHg (35-45) 09/13/16 19:41 ABG pO2 56 mmHg (85-104) L 09/13/16 19:41 ABG O2 Saturation 87 % (95-98) L 09/13/16 19:41 PT/INR, D-dimer PT 11.9 Seconds (9.4-12.1) 09/14/16 00:17 Consult Discharge Plan - Plan Referrals: NO,PCP [Primary Care Provider] - <Jorge Luis Schaefer P - Last Filed: 09/15/16 15:20> Date of Encounter: 09/15/16 - Constitutional Vitals: Temp Pulse Resp BP Pulse Ox 97.8 F 104 18 141/82 98 09/15/16 07:22 09/15/16 13:15 09/15/16 13:15 09/15/16 13:15 09/15/16 13:15 Internal Medicine: Result - Labs CBC & Chem 7: 09/14/16 00:17 09/14/16 00:17 - ABG Interpretation ABG results: ABG ABG pH 7.34 pH Units (7.32-7.45) 09/13/16 19:41 ABG pCO2 41 mmHg (35-45) 09/13/16 19:41 ABG pO2 56 mmHg (85-104) L 09/13/16 19:41 ABG O2 Saturation 87 % (95-98) L 09/13/16 19:41 PT/INR, D-dimer PT 11.9 Seconds (9.4-12.1) 09/14/16 00:17 - Attending Attestation I examined this patient and my medical decision-making was reviewed with the FIELD COUNSEL/PA/Advanced Practice Nurse/Resident Physician. I agree with the documented findings, disposition and treatment plan as described except to the extent set forth below. cardiology input appreciated
[2016-09-15] MEDS ORDERED: Benzonatate 100 MG CAPSULE PO PRN (16:03)
[2016-09-15] MEDS: GuaiFENesin Liq 200 MG/10 ML UDC PO PRN (22:14)
[2016-09-16] MEDS: methylPREDNISolone 125 MG/2 ML VIAL IVP SCH ×4 (00:20→16:17)
[2016-09-16] MEDS: Ipratropium/Albuterol Neb 3 ML IH SCH ×5 (04:25→20:21)
[2016-09-16 06:30] LABS: Basophils % 0.1 %; Hematocrit 36.8 % (35.3-44.9); Hemoglobin 12.4 g/dL (11.5-15.4); Immature Granulocytes % 0.8 % (0-4); Lymphocytes # 0.9 K/mcL (0.6-4.6); Lymphocytes % 6.2 %; Mean Corpuscular HGB Conc 33.7 g/dL (31.6-35.5); Mean Platelet Volume 10.1 fL (9.4-12.4); Monocytes # 0.3 K/mcL (0.0-1.3); Monocytes % 2.1 %; Platelet Count 268 K/mcL (140-400); Red Cell Distribution Width 13.6 % (11.5-14.5); Segmented Neutrophils % 90.8 %
[2016-09-16 06:31] LABS: Neutrophils # 13.5 K/mcL (1.6-8.9)
[2016-09-16 06:43] LABS: BUN/Creatinine Ratio 62 (6-26); Blood Urea Nitrogen 39 mg/dL (7-20); Calcium 8.8 mg/dL (8.6-10.8); Carbon Dioxide 24 mEq/L (19-29); Chloride 109 mEq/L (98-109); Glucose 141 mg/dL (70-99); Osmolality,Calculated 302 (280-300); Potassium 4.1 mEq/L (3.5-4.5); Sodium 140 mEq/L (136-145); eGFR For African Americans > 60 (> 60); eGFR For Non-African Americans > 60 (> 60)
[2016-09-16] MEDS: Budesonide/Formoterol 160/4.5 MDI IH SCH ×2 (07:42→20:26)
[2016-09-16] MEDS: Famotidine 20 MG TABLET PO SCH ×2 (08:16→22:35)
[2016-09-16] MEDS: Aspirin 81 MG TAB.CHEW PO SCH (08:16)
--- NOTE | 2016-09-16 10:10 | Cardiology Progress Note ---
Date of Encounter: 09/16/16 Time of Encounter: 09:30 Assessment and Plan (1) Acute exacerbation of COPD with asthma Current Visit: Yes Status: Acute Per cardiology: -No formal diagnosis of COPD. - H/o asthma and tobacco use. -On nebulizers and steroids. -Can consider pulmonary consultation. -Management per primary service. (2) Elevated troponin Current Visit: Yes Status: Acute Per cardiology: -Troponin elevation 0.18, 1.03, 0.88, 0.69. NSTEMI vs type II DE in the setting of asthma attack. Spo2 87% on admission. -Cardiac risk factors include HTN and tobacco abuse.] -Denies chest pain. -[facility] 09/15/16 with review of unofficial report with mid LAD 50% stenosis. 50% diagonal 1, 90% stenosis left PL. -Per review of films with Dr.Jennifer Gray, left PL is small and very tortorous. Dr.Jennifer Gray recommend optimal medical management and close outpatient follow up with cardiology. I discussed and reviewed with patient and family who are hesitant, but agreeable. Educated patient on symptoms to monitor. -Echo 09/14/16 with LVEF 40%, segmental left ventricular systolic dysfunction, mild diastolic dysfunction, no significant valvular dysfunction, apical anterior , mid anterior, apical septal, mid inferior septal, and mid anterior septal valladares hypokinetic. -On asa, statin, and beta vandana. -Right radial access site without hematoma. -Cardiology will sign off and will follow in outpatient setting. Can consider staged PCI if deemed clinically appropriate. -Right radial access site education given to patient. -Cardiology plan was communicated to primary service. (3) Non-ischemic cardiomyopathy Current Visit: Yes Status: Acute Per cardiology: -Echo as above, LVEF 40%. Unknown baseline. -ON beta vandana. -Will add timur inhibitor. -Will continue to monitor in outpatient setting. (4) CAD (coronary artery disease) Current Visit: Yes Status: Acute Per cardiology: -CAD noted per [facility] 09/15/16. -On asa, statin, and beta vandana. -Denies chest pain. -Will continue to monitor in outpatient setting. Qualifiers: Coronary Disease-Associated Artery/Lesion type: [place] artery [place] vs. transplanted heart: pauma heart Associated angina: without angina Qualified Code(s): I25.10 - Atherosclerotic heart disease of [place] coronary artery without angina pectoris (5) Tobacco abuse Current Visit: Yes Status: Acute Per cardiology: -KNown tobacco abuse. -I spent 3 minutes reviewing smoking cessation education given to patient. (6) Hypertension Current Visit: Yes Status: Chronic Per cardiology: -Known hypertension. -On beta vandana -BPs 120-130s systolic. -Will add timur inhibitor. -Will continue to monitor in outpatient setting. Qualifiers: Hypertension type: essential hypertension Qualified Code(s): I10 - Essential (primary) hypertension Discussion w patient/family: The assessment and plan as outlined above was discussed with the patient and/or family members who expressed understanding and agreement. All questions were answered. Thank you for involving us in the care of your patient. Please call with any questions. Discussed and reviewed with . Subjective Principal diagnosis: shortness of breath Interval history: Patient was admitted with increased shortness of breath. Patient noted to have elevated troponin with peak at 1.03. Patient underwent LHC yesterday with 90% left PL branch stenosis. An intervention was not performed. Patient is doing ok today. Patient denies chest pain. Patient states shortness of breath is improved from admission, however patient states she is still coughing. Patient states she feels cough is worse. Objective Vital Signs, Last 4 Hours Temp Pulse Resp BP Pulse Ox 09/16/16 07:43 18 120/70 96 09/16/16 07:35 97.9 F 89 18 120/70 96 General: Conversant, No Apparent Distress HEENT: Atraumatic, Normocephaly, Mucus Membranes Moist Neck: No JVD, Normal carotid pulses Cardiac: Reg Rate and Rhythm, Normal S1 and S2, No Murmur Lungs: Other (Expiratory wheezes noted throughout. Cough noted. ) Neuro: Alert and responsive, No focal deficits noted Abdomen: Soft, Non-Tender Skin: No rashes noted on visualized skin, Other (Right radial access site without hematoma. ) Musculoskeletal: No Chest Wall Tenderness Extremities: No Clubbing, No Cyanosis, No Edema, Normal Pulses Results 09/16/16 05:44 09/16/16 05:44 Lab Results Active Medications Acetaminophen (Tylenol) 650 mg PO Q6HR PRN PRN Reason: Mild Pain (1-3) Stop: 03/15/17 22:00 Last Admin: 09/15/16 08:03 Dose: 650 mg Albuterol/Ipratropium (Duoneb) 3 ml IH [id number] JOSEPH PRN Reason: Protocol Stop: 03/16/17 00:01 Last Admin: 09/16/16 07:42 Dose: 3 ml Aspirin (Aspirin) 81 mg PO DAILY JOSEPH Stop: 03/16/17 09:01 Last Admin: 09/16/16 08:16 Dose: 81 mg Atorvastatin Calcium (Lipitor) 80 mg PO HS JOSEPH Stop: 03/17/17 21:01 Last Admin: 09/15/16 22:14 Dose: 80 mg Benzonatate (Tessalon) 100 mg PO TID PRN PRN Reason: Cough Stop: 03/17/17 16:04 Last Admin: 09/15/16 16:53 Dose: 100 mg Budesonide/Formoterol Fumarate (Symbicort) 2 puff IH BIDR JOSEPH Stop: 03/16/17 10:01 Last Admin: 09/16/16 07:42 Dose: 2 puff Carvedilol (Coreg) 3.125 mg PO BIDWM JOSEPH PRN Reason: Protocol Stop: 03/16/17 08:01 Last Admin: 09/16/16 08:16 Dose: 3.125 mg Enoxaparin Sodium (Lovenox) 40 mg 1 mg/kg (50 mg) SQ Q24H JOSEPH PRN Reason: Protocol Stop: 03/16/17 07:01 Last Admin: 09/15/16 06:00 Dose: 40 mg Famotidine (Pepcid) 20 mg PO BID JOSEPH Stop: 03/16/17 09:01 Last Admin: 09/16/16 08:16 Dose: 20 mg Guaifenesin (Robitussin Liq) 200 mg PO Q6HR PRN PRN Reason: Cough Stop: 03/17/17 16:04 Last Admin: 09/15/16 22:14 Dose: 200 mg Ceftriaxone Sodium 1,000 mg/ (Dextrose) 100 mls @ 200 mls/hr IVPB DAILY JOSEPH Stop: 03/15/17 23:01 Last Admin: 09/16/16 08:19 Dose: 200 mls/hr Methylprednisolone (Solu-Medrol) 60 mg IVP Q6HR JOSEPH Stop: 03/16/17 00:01 Last Admin: 09/16/16 06:01 Dose: 60 mg Naloxone HCl (Narcan) 0.4 mg IVP Q2MIN PRN PRN Reason: Opioid Reversal Stop: 03/15/17 22:00 Nicotine (Nicoderm) 21 mg TD DAILY JOSEPH Stop: 03/15/17 22:16 Last Admin: 09/15/16 07:50 Dose: 21 mg Laboratory Tests 09/13/16 09/14/16 09/14/16 17:28 00:17 07:41 WBC Hgb Creatinine Troponin I 0.18 H* 1.03 H* 0.88 H* Triglycerides Cholesterol LDL Cholesterol, Calc HDL Cholesterol 09/14/16 09/14/16 09/16/16 11:37 11:37 05:44 WBC 14.9 H D Hgb 12.4 Creatinine Troponin I 0.69 H* Triglycerides 81 Cholesterol 202 H LDL Cholesterol, Calc 130 H HDL Cholesterol 56 09/16/16 05:44 WBC Hgb Creatinine 0.63 Troponin I Triglycerides Cholesterol LDL Cholesterol, Calc HDL Cholesterol - Imaging and Cardiology Chest Xray: report reviewed Echo: report reviewed Cardiac cath: report reviewed - EKG Interpretation EKG results cardiology: other (Telemetry reviewed with average HR 70, sinus rhythm.) Consult Discharge Plan - Plan Referrals: Jessica Loya, CLINICAL LABORATORY MANAGER [Advanced Practice Nurse] - 09/21/16 2:15 pm
--- NOTE | 2016-09-16 11:16 | Internal Med Progress Note ---
<Benton Hollins - Last Filed: 09/16/16 11:14> Date of Encounter: 09/16/16 Time of Encounter: 08:20 - Assessment and plan (1) Acute respiratory failure Current Visit: Yes Status: Acute Assessment and plan: Patient presents to the hospital with dyspnea, noted hypoxia and tachypnea. This is likely in the setting of an acute COPD exacerbation given her significant smoking history, though the patient does not have a diagnosed history of COPD. Her presentation appears to be that of COPD and this correlates with her chest CT and chest x-ray. She does have a history of asthma and only uses albuterol inhaler home and never followed up with a medical review coordinator in the past. - Respiratory status improved significantly after administration of IV corticosteroids, scheduled DuoNeb's and starting Symbicort. - Currently requires 2 L nasal cannula oxygen in the acute setting - Clinically improved compared to admission Continue current breathing treatments We will increase patient Solu-Medrol to 80 mg 4 times a day Continue current antibiotic treatment with ceftriaxone Continue supplemental oxygen as needed, wean as tolerated Patient will be scheduled to follow-up with pulmonology post discharge Patient will need outpatient PFT evaluation Qualifiers: Respiratory failure complication: hypoxia Qualified Code(s): J96.01 - Acute respiratory failure with hypoxia (2) Acute exacerbation of COPD with asthma Current Visit: Yes Status: Acute Assessment and plan: Plan as above (3) Elevated troponin Current Visit: Yes Status: Acute Assessment and plan: Patient was admitted with tachypnea, shortness of breath and troponin of 0.18. Troponins elevated to a high of 1.0 and then trended back to 0.8. Patient denies any chest pain, chest pressure, nausea, vomiting, diarrhea, or constipation at admission. She has any history of cardiac disease, hypertension , hyperlipidemia, diabetes. There is no documentation of hypoxia or a low O2 sat. No other significant explanation for her elevation in troponin levels. EKG reviewed demonstrates normal sinus rhythm and an appropriate axis and rate. JIN score of 1 Patient underwent cardiac catheterization yesterday Cardiology reviewed the catheterization reports and recommends optimizing medical management Echo was performed and show a decreased EF of 40% with segmental LV systolic dysfunction Patient on 81 mg aspirin daily, 80 mg atorvastatin at night, and will add metoprolol per cardiology recommendations (4) Cachexia Current Visit: Yes Status: Acute Assessment and plan: Patient has a BMI of 18.1, patient denies any recent history of unintentional weight loss, she said she has been roughly the same weight for the past several years with fluctuation 1 or 2 pounds. (5) Tobacco abuse Current Visit: Yes Status: Acute Assessment and plan: Current every day smoker with a [id number] history Smoking cessation discussed with the patient Nicotine patch prn (6) DVT prophylaxis Current Visit: Yes Status: Acute Assessment and plan: 40 mg Lovenox subcutaneous daily - Subjective Interval history: Patient had numerous questions as warning regarding her current clinical status , explained in detail what has been seen in the results of her various testing so far. She states understanding at this time. She does state that she has been continuing to cough, though does feel somewhat improved with the cough medication that she has been receiving. She continues to have a dry cough, though feels like something wants to come up. She denies nausea/vomiting, denies palpitation, denies shortness of breath, and only reports one mild episode of chest pain last night following her catheterization. - Constitutional Vitals: Temp Pulse Resp BP Pulse Ox 97.9 F 89 18 120/70 96 09/16/16 07:35 09/16/16 07:35 09/16/16 07:43 09/16/16 07:43 09/16/16 07:43 General appearance: Present: cachectic, A&O X 3, underweight, answers questions appropriately Exam: General: Cooperative, pleasant, no acute distress, alert and oriented 3, answers questions appropriately appears slightly anxious HEENT: Normocephalic, atraumatic, neck supple, trachea midline Respiratory: No accessory muscle usage, Diffuse wheezing on auscultation Cardiovascular: Regular rate and rhythm, S1 and S2 present, no murmurs/rubs/ gallops/clicks appreciated GI/abdominal: Nondistended, nontender, soft, normal bowel sounds, no peritoneal signs Extremities: No calf tenderness, noncyanotic, no pedal edema appreciated, warm, lower extremity pulses palpable and symmetrical Neurological: Alert and oriented 3, no facial droop, no focal deficits Skin: Dry, intact, normal color Internal Medicine: Result - Labs CBC & Chem 7: 09/16/16 05:44 09/16/16 05:44 Labs: Short CBC 09/16/16 Range/Units 05:44 WBC 14.9 H D (4.3-11.1) K/mcL Hgb 12.4 (11.5-15.4) g/dL Hct 36.8 (35.3-44.9) % Plt Count 268 (140-400) K/mcL Neutrophils # 13.5 H (1.6-8.9) K/mcL BMP 09/16/16 05:44 Sodium 140 Potassium 4.1 Chloride 109 Carbon Dioxide 24 BUN 39 H D Creatinine 0.63 Glucose 141 H Calcium 8.8 - ABG Interpretation ABG results: ABG ABG pH 7.34 pH Units (7.32-7.45) 09/13/16 19:41 ABG pCO2 41 mmHg (35-45) 09/13/16 19:41 ABG pO2 56 mmHg (85-104) L 09/13/16 19:41 ABG O2 Saturation 87 % (95-98) L 09/13/16 19:41 PT/INR, D-dimer PT 11.9 Seconds (9.4-12.1) 09/14/16 00:17 Consult Discharge Plan - Plan Referrals: Jessica Loya BOILER WELDER [Advanced Practice Nurse] - 09/21/16 2:15 pm <Jorge Luis Schaefer - Last Filed: 09/16/16 16:15> Date of Encounter: 09/16/16 - Constitutional Vitals: Temp Pulse Resp BP Pulse Ox 97.4 F L 75 18 117/68 96 09/16/16 15:47 09/16/16 15:47 09/16/16 15:48 09/16/16 15:47 09/16/16 15:48 Internal Medicine: Result - Labs CBC & Chem 7: 09/16/16 05:44 09/16/16 05:44 Labs: Short CBC 09/16/16 Range/Units 05:44 WBC 14.9 H D (4.3-11.1) K/mcL Hgb 12.4 (11.5-15.4) g/dL Hct 36.8 (35.3-44.9) % Plt Count 268 (140-400) K/mcL Neutrophils # 13.5 H (1.6-8.9) K/mcL BMP 09/16/16 05:44 Sodium 140 Potassium 4.1 Chloride 109 Carbon Dioxide 24 BUN 39 H D Creatinine 0.63 Glucose 141 H Calcium 8.8 - ABG Interpretation ABG results: ABG ABG pH 7.34 pH Units (7.32-7.45) 09/13/16 19:41 ABG pCO2 41 mmHg (35-45) 09/13/16 19:41 ABG pO2 56 mmHg (85-104) L 09/13/16 19:41 ABG O2 Saturation 87 % (95-98) L 09/13/16 19:41 PT/INR, D-dimer PT 11.9 Seconds (9.4-12.1) 09/14/16 00:17 - Attending Attestation I examined this patient and my medical decision-making was reviewed with the FAMILY MEDIATOR/PA/Advanced Practice Nurse/Resident Physician. I agree with the documented findings, disposition and treatment plan as described except to the extent set forth below.
[2016-09-16] MEDS: Nicotine 21 MG PATCH.TD24 TD SCH (12:33)
[2016-09-16] MEDS: *HR* Enoxaparin 40 MG/0.4 ML SYRINGE SQ SCH (12:33)
[2016-09-16] MEDS: GuaiFENesin Liq 200 MG/10 ML UDC PO PRN ×2 (16:26→22:35)
[2016-09-17] MEDS: Ipratropium/Albuterol Neb 3 ML IH SCH ×4 (00:05→11:49)
[2016-09-17] MEDS: methylPREDNISolone 125 MG/2 ML VIAL IVP SCH ×2 (01:04→06:12)
[2016-09-17] MEDS: *HR* Enoxaparin 40 MG/0.4 ML SYRINGE SQ SCH (06:12)
[2016-09-17 06:54] LABS: Hematocrit 36.3 % (35.3-44.9); Hemoglobin 12.2 g/dL (11.5-15.4); Immature Granulocytes % 1.1 % (0-4); Lymphocytes # 1.1 K/mcL (0.6-4.6); Lymphocytes % 9.6 %; Mean Corpuscular HGB Conc 33.6 g/dL (31.6-35.5); Mean Corpuscular Volume 92.4 fL (83.0-100.0); Mean Platelet Volume 9.8 fL (9.4-12.4); Monocytes # 0.5 K/mcL (0.0-1.3); Monocytes % 4.1 %; Neutrophils # 9.6 K/mcL (1.6-8.9); Platelet Count 257 K/mcL (140-400); Red Blood Count 3.93 M/mcL (3.82-4.97); Red Cell Distribution Width 13.7 % (11.5-14.5); Segmented Neutrophils % 85.2 %
[2016-09-17 07:00] VITALS: BP 103/61
[2016-09-17 07:04] LABS: BUN/Creatinine Ratio 62 (6-26); Blood Urea Nitrogen 40 mg/dL (7-20); Carbon Dioxide 25 mEq/L (19-29); Chloride 108 mEq/L (98-109); Glucose 120 mg/dL (70-99); Osmolality,Calculated 301 (280-300); Sodium 140 mEq/L (136-145); eGFR For African Americans > 60 (> 60); eGFR For Non-African Americans > 60 (> 60)
[2016-09-17] MEDS: Budesonide/Formoterol 160/4.5 MDI IH SCH (07:57)
[2016-09-17] MEDS: Aspirin 81 MG TAB.CHEW PO SCH (09:05)
[2016-09-17] MEDS: Famotidine 20 MG TABLET PO SCH (09:05)
[2016-09-17] MEDS: Acetaminophen 325 MG TABLET PO PRN (09:05)
[2016-09-17] MEDS: Nicotine 21 MG PATCH.TD24 TD SCH (09:06)
--- NOTE | 2016-09-17 09:54 | Invasive Diagnostic Lab ---
Name: Jaja Kirkland Date of Study: 09/15/2016 Date: 1960 Ht: 159.8 cm /62.9 in Medical Record#: [id number] Age: 56 Wt: 47.2 kg / 104.06 lb Account/Order#: [id number] Gender: Female BSA: 1.46 Order #: [id number] Fluoro Dose: 27 mGy BMI: 18.48 Procedure Physician: Estuardo Lopez MD, FACC Referring MD: Referring MD: Procedures Performed: LEFT HEART CATH Indications: Non-Stemi Impressions: There is severe one vessel coronary artery disease. The left ventricle is normal and has normal contractility EF 50% No intervention secondary to patient's coughing fits that results in marked movement in all 4 extremities. Recommendations: Optimal medical therapy of patient's disease. Aggressive risk factor modification. History/Risk Factors: NSTEMI COPD Procedure Access obtained in the right Radial artery by percutaneous puncture. Patient has frequent coughing fits that results in her moving all 4 extremities and is unable to stop even with recent bronchodilator treatment. Intervention in a tortuous circumflex/PDA while patient is unable to remain still was deemed to be of unfavorable risk to the patient. Complications: None Contrast: Isovue 39ml Closure Device: Mechanical Compression Hemodynamics: Pressures Site Systolic/ A Wave Diastolic/ V Wave End Diastolic/ Mean HR AO 128 87 106 98 AO 110 66 87 68 AO 84 59 71 89 LV 122 10 19 116 LV 143 3 27 99 AO 134 78 103 99 LV Ventriculography Ejection Method: LV Gram Ejection Fraction: 50% Wall Motion: GUNN Anterobasal Normal Anterolateral Normal Apical: Normal Inferoapical Normal Inferobasal Normal Coronary Dominance: Left Lesion Findings/Interventions * Left Main Coronary Artery The LMCA is angiographically free of disease. * Left Anterior Descending There is a 50% stenosis in the Mid LAD. There is a 50% stenosis in the 1st Diagonal. * Circumflex There is a 90% stenosis in the Left PDA. Minimal disease in the circumflex and OM. Tortuous. * Right Coronary Artery The RCA is angiographically free of significant disease. Updated by RT Olga (R) on 09/15/2016 12:38:51 PM Estuardo Lopez MD, FACC electronically signed on 09/17/2016 9:48:29 AM with status of Final
--- NOTE | 2016-09-17 10:06 | Discharge Summary ---
Date of Encounter: 09/17/16 Time of Encounter: 10:00 - Discharge Diagnosis (1) Acute exacerbation of chronic obstructive airways disease Priority: Primary Status: Acute (2) CAD (coronary artery disease) Priority: Primary Status: Acute Qualifiers: Coronary Disease-Associated Artery/Lesion type: [place] artery [place] vs. transplanted heart: [place] heart Associated angina: without angina Qualified Code(s): I25.10 - Atherosclerotic heart disease of [place] coronary artery without angina pectoris (3) Elevated troponin Priority: Primary Status: Acute (4) Hypertension Priority: Secondary Status: Chronic Qualifiers: Hypertension type: essential hypertension Qualified Code(s): I10 - Essential (primary) hypertension (5) Tobacco abuse Priority: Primary Status: Acute - Discharge Medications Prescriptions: Amoxicillin/Clavulanate [Augmentin] 500 mg PO BIDWM #7 tablet Aspirin 81 mg PO DAILY #60 tab.chew Atorvastatin [Lipitor] 80 mg PO HS #60 tablet Budesonide/Formoterol 160/4.5 [Symbicort 160/4.5] 2 puff IH BIDR #1 inhaler Carvedilol [Coreg] 3.125 mg PO BIDWM #60 tablet Lisinopril [Zestril] 2.5 mg PO DAILY #60 tablet Nicotine Patch [Nicoderm] 21 mg TD DAILY #30 patch.td24 predniSONE [PredniSONE] 40 mg PO DAILY #5 tablet Home Medications: Albuterol Sulfate [Albuterol Inhaler] 2 puff IH Q6HR PRN 09/14/16 [History] Amitriptyline [Elavil] 25 mg PO DAILY 09/14/16 [History] Estradiol [Estrace] 1 mg PO DAILY 09/14/16 [History] Gabapentin [Neurontin] 300 mg PO TID 09/14/16 [History] Montelukast [Singulair] 10 mg PO HS 09/14/16 [History] Progesterone,Micronized [Progesterone] 200 mg PO DAILY 09/14/16 [History] Amoxicillin/Clavulanate [Augmentin] 500 mg PO BIDWM #7 tablet 09/17/16 [Rx] Aspirin 81 mg PO DAILY #60 tab.chew 09/17/16 [Rx] Atorvastatin [Lipitor] 80 mg PO HS #60 tablet 09/17/16 [Rx] Budesonide/Formoterol 160/4.5 [Symbicort 160/4.5] 2 puff IH BIDR #1 inhaler [Rx] Carvedilol [Coreg] 3.125 mg PO BIDWM #60 tablet 09/17/16 [Rx] Lisinopril [Zestril] 2.5 mg PO DAILY #60 tablet 09/17/16 [Rx] Nicotine Patch [Nicoderm] 21 mg TD DAILY #30 patch.td24 09/17/16 [Rx] methylPREDNISolone [Solu-MEDROL] 80 mg IVP Q6HR vial 09/17/16 [Rx] predniSONE [PredniSONE] 40 mg PO DAILY #5 tablet 09/17/16 [Rx] Allergies/Adverse Reactions: Allergies No Known Allergies Allergy (Verified 09/13/16 18:14) Procedures/tests Complete & Pending: Procedures Performed prior 72 hours Category Date Time Status CL Cardiac Catheterization [CL] Routine Adult Remedial Education Instructor 09/15/16 09:55 Completed EV echocardiogram Routine Y 09/14/16 14:54 Completed Date of admission: 09/13/16 21:59 Primary care physician: PCP NO Consults: 09/13/16 22:04 Consult to Nurse Navigator [CONS] Routine Comment: 09/13/16 22:06 Consult to Respiratory Therapy [CONS] Routine Reason for Consult: COPD, BREATHING TREATMENT Call Completed: No 09/13/16 22:14 Consult to Cardiology [CONS] Routine Comment: Consulting Provider: Janey aKm Reason for Consult: elevated troponin Call Completed: No 09/15/16 08:19 Consult to Cardiac Rehabilitation-Phase1 [CONS] Routine Comment: Reason for Consult: NSTEMI Call Completed: No Discharging clinician: Jorge Luis Schaefer - Patient Status Disposition: Home, Self-Care Condition: Critical Functional capacity at discharge: independent ambulation Overall status at discharge: patient is progressing back to baseline - Discharge Instructions Instructions: Lisinopril (By mouth), Prednisone (By mouth), Aspirin (By mouth) , Amoxicillin/Clavulanate Potassium (By mouth), Nicotine (Absorbed through the skin), Atorvastatin (By mouth), Carvedilol (By mouth), Budesonide/Formoterol ( By breathing), Chronic Obstructive Pulmonary Disease (DC) Follow Up With: Jessica Loya CNP [Advanced Practice Nurse] - 09/21/16 2:15 pm Silvana Rios MD [Partnered Physician] - Forms: Inpatient Work/School Release - Diet and Activity Activity: increase activity as tolerated Diet: low fat, low cholesterol, low salt diet Interval History: Ms. Kirkland is a 56 year old female with past medical history of asthma and hypertension. She is a current daily smoker. Patient presents to the ED with complaints of shortness of breath. Symptoms started last night. Worse with exertion. Patient was at work when symptoms started. Did not improve with albuterol inhaler. When she came in initially she was in distress. She required BiPAP initially but now is doing well on nasal cannula. Her O2 sat is 100%. Patient also states she has had a mild productive cough over the past 1- 2 weeks. Patient is able to provide HISTORY. Her and mother are present at bedside. Patient states she has never been diagnosed with COPD. states she she only uses albuterol inhaler. Initial ED evaluation revealed acute hypoxic respiratory failure likely due to COPD. Patient also has elevated troponin at 0.18 which is likely due to demand ischemia. White blood cell count is also 15.8. Patient is being admitted for COPD exacerbation. She has also been started on Lovenox for elevated troponin. We will trend the troponin. Patient denies any other complaints. Patient and her family members have been explained about her condition and plan of care. They understood and agreed and have no unanswered questions. Patient has been explained that we may start her back on BiPAP if her O2 sats drop. She understood and agreed. Hospital course: Patient was hospitalized. Cardiology was consulted. Cardiology recommended treatment for her acute exacerbation of COPD to begin with and followed by decided to go for cardiac catheterization. Patient received antibiotics, steroid and bronchodilators. Second day of hospitalization patient underwent cardiac catheterization. Left heart catheterization: LAD 50%, 50% diagonal 1, 90% stenosis left PL. Radio Talk Show Host reviewed the films and it seems that left PL was very small and tortuous. Cardiology recommended medical management. Her ejection fraction is 40% Patient was in the hospital for 1 more day after the cardiology signed off. Patient received intravenous antibiotics, steroids, bronchodilators. Patient's saturation dropped while 6 minute walk test. Patient will need intranasal oxygen. Patient will need outpatient pulmonary evaluation. Plan: I have given a handwritten prescription for oxygen at home. Patient will go home today. Patient will follow up with PCP in 1-2 weeks. Patient will follow-up with pulmonology in 1-2 weeks. Patient will follow up with cardiology in 1-2 weeks. QUESTIONS answered at the time of discharge. patient does not have any questions, concerns, update or recommendation - Time Spent with Patient Total time spent providing and/or coordinating discharge services: - Constitutional Vitals: Temp Pulse Resp BP Pulse Ox 97.9 F 56 16 103/61 94 09/17/16 05:50 09/17/16 05:50 09/17/16 07:57 09/17/16 05:50 09/17/16 07:57 General appearance: Present: cachectic, A&O X 3, underweight, answers questions appropriately - Head Head exam: Present: atraumatic, normocephalic - Eye Eye exam: Present: PERRL, conjuntiva pink, sclera anicteric Pupils: Present: PERRL - Neck Neck exam general surgery: Present: supple, trachea midline. Absent: lymphadenopathy - Respiratory Respiratory exam: Present: CTAB. Absent: accessory muscle use, rales, rhonchi, wheezes - Cardiovascular Cardiovascular exam: Present: RRR, +S1, +S2. Absent: diastolic murmur, gallop, rubs, systolic murmur - GI/Abdominal GI/Abdominal exam: Present: normal bowel sounds, soft, no peritoneal signs. Absent: distended, tenderness - Extremities Exam Extremities exam: Present: warm, radial pulses palpable and symetrical. Absent : calf tenderness, cyanotic, pedal edema - Neurological Exam Neurological exam: Present: CN II-XII intact, oriented X3, no focal deficits. Absent: pronater drift, facial droop, speech deficit - Skin Skin exam: Present: dry, intact
== END 2016-09-17 11:54 | disposition home or self-care (01) | DRG 286 ==
LOC: EMEROO 16:51 → 2NENU 16:51
PROVIDERS: ADMIT Family Medicine; ATTEND Internal Medicine

== ENCOUNTER 2017-02-02 05:57 | Inpatient (IN) ==
[2017-02-02] MEDS ORDERED: methylPREDNISolone 125 MG/2 ML VIAL IVP ONE (06:01)
[2017-02-02] MEDS ORDERED: Albuterol 2.5 MG/3 ML NEBULIZER IH ONE (06:01)
[2017-02-02] MEDS ORDERED: Albuterol 2.5 MG/3 ML NEBULIZER ONE (06:02)
--- NOTE | 2017-02-02 06:09 | Emergency Department Note ---
Disposition Clinical Impression: COPD exacerbation, Pneumothorax on right, Elevated troponin Disposition: Admitted As Inpatient Condition: Good Referrals: Elias Martinez CNP [Primary Care Provider] - Forms: ED Satisfaction Letter General Adult HPI - General Chief complaint: ED Shortness of Breath/Dyspnea Stated complaint: resp distress Time Seen by Provider: 02/02/17 06:01 Source: patient Limitations: other (Dyspnea) Nursing Notes Reviewed: Yes Vital Signs Reviewed: Yes - History of Present Illness HPI Narrative: 56-year-old female who reports 3 days of cough and dyspnea. She reports she has a history of COPD, asthma, high cholesterol. She denies that she has any stents in her heart. She admits to at feeling a tightness in her chest. When EMS arrived she was tripoding and in respiratory distress. They put her on BiPAP which helped her significantly. She is able to nod yes and no to answers. She denies having a fever. She denies ever needing intubation due to her asthma or COPD. She does report that she has had to go to the hospital before for her COPD. She denies that she has any inhalers that she can take at home. She says that nothing is prescribed her Radiation: non-radiation Pain Scale: 5 Improves with: nothing Worsens with: other (exertion) Associated symptoms: Reports: denies other symptoms Treatments Prior to Arrival: none - Related Data Home Medications Medication Instructions Recorded Confirmed Albuterol Sulfate [Albuterol 2 puff IH Q6HR PRN 09/14/16 09/14/16 Inhaler] Amitriptyline [Elavil] 25 mg PO DAILY 09/14/16 09/14/16 Estradiol [Estrace] 1 mg PO DAILY 09/14/16 09/14/16 Gabapentin [Neurontin] 300 mg PO TID 09/14/16 09/14/16 Montelukast [Singulair] 10 mg PO HS 09/14/16 09/14/16 Progesterone,Micronized 200 mg PO DAILY 09/14/16 09/14/16 [Progesterone] Previous Rx's Medication Instructions Recorded Amoxicillin/Clavulanate [Augmentin] 500 mg PO BIDWM #7 tablet 09/17/16 Aspirin 81 mg PO DAILY #60 tab.chew 09/17/16 Atorvastatin [Lipitor] 80 mg PO HS #60 tablet 09/17/16 Budesonide/Formoterol 160/4.5 2 puff IH BIDR #1 inhaler 09/17/16 [Symbicort 160/4.5] Carvedilol [Coreg] 3.125 mg PO BIDWM #60 tablet 09/17/16 Lisinopril [Zestril] 2.5 mg PO DAILY #60 tablet 09/17/16 Nicotine Patch [Nicoderm] 21 mg TD DAILY #30 patch.td24 09/17/16 methylPREDNISolone [Solu-MEDROL] 80 mg IVP Q6HR vial 09/17/16 predniSONE [PredniSONE] 40 mg PO DAILY #5 tablet 09/17/16 Allergies Allergy/AdvReac Type Severity Reaction Status Date / Time No Known Allergies Allergy Verified 09/13/16 18:14 All systems ED: reviewed and negative except as stated. Constitutional: Denies: fever ENT ED: Denies: throat pain Cardiovascular: Denies: chest pain Respiratory: Reports: cough, dyspnea Integumentary: Denies: rash Endocrine: Reports: fatigue Past Medical History - Past Medical History Medical history: Reports: asthma, COPD, hypertension Surgical history: Reports: orthopedic, other (left wrist fracture repair), other (tubal ligation) Psychiatric history: Reports: no psych history - Social History Smoking Status: Current every day smoker Smokeless Tobacco Status: No Alcohol use: Reports: none Drug use: Reports: none Physical Exam - General Limitations: other (dyspnea) General appearance: alert, in distress (Moderate respiratory distress) - Head Head exam: atraumatic - Neck Neck exam: Present: normal inspection. Absent: tenderness - Chest Chest inspection: Present: normal inspection, symmetric chest wall rise. Absent : tenderness - Cardiovascular Cardiovascular exam: Present: regular rate, normal rhythm, normal heart sounds - Abdominal Exam Abdominal exam: Present: soft, Non-Tender, normal bowel sounds - Extremities Exam Extremities exam: Present: normal inspection. Absent: tenderness, pedal edema - Neurological Exam Neurological exam: Present: alert, oriented X3. Absent: motor sensory deficit - Psychiatric Psychiatric exam: Present: anxious - Skin Skin exam: Present: warm, dry. Absent: cyanosis, diaphoresis Course Course Narrative: She arrived on BiPAP with significant respiratory work. Chest x-ray demonstrated a moderate to large right-sided pneumothorax. Chest tube was placed with immediate improvement in symptoms. She is no longer requiring oxygen supplementation or BiPAP and is resting comfortably after the chest tube. Accepted by Dr Schaefer Vital Signs Temperature 97.3 F L 02/02/17 05:59 Pulse Rate 60 02/02/17 05:59 Respiratory Rate 33 02/02/17 05:59 Blood Pressure 130/71 02/02/17 05:59 O2 Sat by Pulse Oximetry 100 02/02/17 05:59 Temperature 97.3 F L 02/02/17 05:59 Pulse Rate 58 02/02/17 06:56 Respiratory Rate 24 02/02/17 06:56 Blood Pressure 121/70 02/02/17 06:56 O2 Sat by Pulse Oximetry 95 02/02/17 07:02 Oxygen Delivery Oxygen Delivery Room Air Procedures - Chest Tube Chest Tube 1 Chest Tube Location: fifth interspace Size of Tube (cm): 0 (dart) Chest Tube Prep: betadine prep (chloraprep used), sterile drapes applied Local Anesthetic: lidocaine 1% Amount of Anesthesia Used (mL): 5 Incision Made With: #11 blade Post Procedure: sterile dressing applied Tube Drainage: none Post Procedure CXR?: Yes (improvement in pneumothorax) Patient Tolerated Procedure: Yes Medical Decision Making - Medical Records Medical records reviewed: Yes I reviewed the patient's medical records. - Lab Data Lab results reviewed: Yes I reviewed the patient's lab results. Result diagrams: 02/02/17 06:15 02/02/17 06:15 Lab Results 02/02/17 02/02/17 02/02/17 Range/Units 06:15 06:15 06:15 WBC 18.8 H (4.3-11.1) K/mcL RBC 4.99 H (3.82-4.97) M/mcL Hgb 15.6 H (11.5-15.4) g/dL Hct 46.9 H (35.3-44.9) % MCV 94.0 (83.0-100.0) fL MCH 31.3 (28.0-33.3) pg MCHC 33.3 (31.6-35.5) g/dL RDW 13.7 (11.5-14.5) % Plt Count 238 (140-400) K/mcL MPV 8.9 L (9.4-12.4) fL Immature Gran % 0.5 (0-4) % Seg Neutrophils % 74.9 % Lymphocytes % 12.0 % Monocytes % 7.2 % Eosinophils % 4.9 % Basophils % 0.5 % Neutrophils # 14.1 H (1.6-8.9) K/mcL Lymphocytes # 2.3 (0.6-4.6) K/mcL Monocytes # 1.4 H (0.0-1.3) K/mcL Eosinophils # 0.9 H (0.0-0.6) K/mcL Basophils # 0.1 (0.0-0.2) K/mcL Sodium 143 (136-145) mEq/L Potassium 4.3 (3.5-4.5) mEq/L Chloride 108 (98-109) mEq/L Carbon Dioxide 25 (19-29) mEq/L BUN 29 H (7-20) mg/dL Creatinine 0.74 (0.57-1.11) mg/dL Est GFR ( Amer) > 60 (> 60) Est GFR (Non-Af Amer) > 60 (> 60) BUN/Creatinine Ratio 39 H (6-26) Glucose 171 H (70-99) mg/dL Calculated Osmolality 306 H (280-300) Calcium 9.6 (8.6-10.8) mg/dL Troponin I 0.24 H* (0-0.03) ng/mL B-Natriuretic Peptide (0-100) pg/mL 02/02/17 Range/Units 06:15 WBC (4.3-11.1) K/mcL RBC (3.82-4.97) M/mcL Hgb (11.5-15.4) g/dL Hct (35.3-44.9) % MCV (83.0-100.0) fL MCH (28.0-33.3) pg MCHC (31.6-35.5) g/dL RDW (11.5-14.5) % Plt Count (140-400) K/mcL MPV (9.4-12.4) fL Immature Gran % (0-4) % Seg Neutrophils % % Lymphocytes % % Monocytes % % Eosinophils % % Basophils % % Neutrophils # (1.6-8.9) K/mcL Lymphocytes # (0.6-4.6) K/mcL Monocytes # (0.0-1.3) K/mcL Eosinophils # (0.0-0.6) K/mcL Basophils # (0.0-0.2) K/mcL Sodium (136-145) mEq/L Potassium (3.5-4.5) mEq/L Chloride (98-109) mEq/L Carbon Dioxide (19-29) mEq/L BUN (7-20) mg/dL Creatinine (0.57-1.11) mg/dL Est GFR ( Amer) (> 60) Est GFR (Non-Af Amer) (> 60) BUN/Creatinine Ratio (6-26) Glucose (70-99) mg/dL Calculated Osmolality (280-300) Calcium (8.6-10.8) mg/dL Troponin I (0-0.03) ng/mL B-Natriuretic Peptide 18 (0-100) pg/mL - Radiology Data Radiology results reviewed: Yes I reviewed the patient's radiology results. - EKG Data EKG #1 EKG attestation: Yes I reviewed and interpreted this EKG. EKG shows normal: sinus rhythm Rate: normal Rhythm: NSR [place]/QRS: normal When compared to previous EKG there are: no significant changes Interpretation: no acute changes Critical Care Time Critical Care Time: Yes Total Critical Care Time: 40 Attestation: Critical care performed: Time is exclusive of separately billable procedures. Time includes: direct patient care, patient reassessment, coordination of patient care, interpretation of data (laboratory data, radiology data, and respiratory data), review of patient's medical records, medical consultation and documentation of patient care. Procedures included in critical care time: Procedures excluded from critical care time: Chest tube placement Attestation Statement - Attestation Attestation: I, Jerzy Song MD, personally evaluated this patient and discussed their management with the resident physician. I reviewed the resident's note and agree with the documented findings, medical decision making, and plan of care. 56-year-old female presents to the emergency department with a complaint of increasing shortness of breath over the past 3 days. Worse tonight. She called EMS and EMS reports on their arrival patient was tripoding and respiratory distress. She was placed on CPAP per EMS and received 2 DuoNeb treatments with slight improvement. She does admit to some right-sided chest pain. Also some cough. No fever. On examination patient is a well-developed thin female in moderate respiratory distress. She is alert and oriented. No cyanosis or diaphoresis. Breath sounds are decreased bilaterally with bilateral expiratory wheezes. Heart regular rate and rhythm. Abdomen soft with normal bowel sounds. No pedal edema. Laboratory reviewed. Troponin elevated. Chest x-ray revealed a right lower pneumothorax. Pleural catheter was placed to the right pleural space by Dr. Robb without difficulty. Postprocedure x-ray shows reexpansion of the lung. The hospitalist, Dr. Schaefer, was consulted and accepted admission of the patient.
[2017-02-02 06:26] LABS: Basophils # 0.1 K/mcL (0.0-0.2); Basophils % 0.5 %; Eosinophils # 0.9 K/mcL (0.0-0.6); Eosinophils % 4.9 %; Hematocrit 46.9 % (35.3-44.9); Hemoglobin 15.6 g/dL (11.5-15.4); Immature Granulocytes % 0.5 % (0-4); Lymphocytes # 2.3 K/mcL (0.6-4.6); Mean Corpuscular HGB Conc 33.3 g/dL (31.6-35.5); Mean Corpuscular Hemoglobin 31.3 pg (28.0-33.3); Mean Platelet Volume 8.9 fL (9.4-12.4); Monocytes # 1.4 K/mcL (0.0-1.3); Monocytes % 7.2 %; Neutrophils # 14.1 K/mcL (1.6-8.9); Platelet Count 238 K/mcL (140-400); Red Blood Count 4.99 M/mcL (3.82-4.97); Red Cell Distribution Width 13.7 % (11.5-14.5); Segmented Neutrophils % 74.9 %
[2017-02-02 06:38] LABS: BUN/Creatinine Ratio 39 (6-26); Blood Urea Nitrogen 29 mg/dL (7-20); Calcium 9.6 mg/dL (8.6-10.8); Carbon Dioxide 25 mEq/L (19-29); Chloride 108 mEq/L (98-109); Glucose 171 mg/dL (70-99); Osmolality,Calculated 306 (280-300); Potassium 4.3 mEq/L (3.5-4.5); Sodium 143 mEq/L (136-145); eGFR For African Americans > 60 (> 60); eGFR For Non-African Americans > 60 (> 60)
[2017-02-02] MEDS ORDERED: Aspirin 325 MG TABLET PO ONE (06:54)
[2017-02-02] MEDS ORDERED: 0.9 % Sodium Chloride 1,000 ML IVC ONE (06:59)
[2017-02-02] MEDS ORDERED: Naloxone 0.4 MG/ML INJ IVP PRN (09:39)
--- NOTE | 2017-02-02 09:47 | Internal Med History&Physical ---
Date of Encounter: 02/02/17 Time of Encounter: 09:47 Assessment and Plan (1) Pneumothorax on right Current visit: Yes Status: Acute Right-sided pneumothorax: Plan: Admit as inpatient: Reason for inpatient admission: Patient needs underwater sealed/chest tube/close monitoring in the inpatient setting to prevent respiratory failure. Chest tube management as per pulmonology. We will follow the recommendations from pulmonary regarding chest tube. (2) Acute exacerbation of chronic obstructive airways disease Current visit: No Status: Acute Patient is back exacerbation of chronic obstructive disease. Ran: Antibiotics: Levofloxacin Steroids: Prednisone. Bronchodilators: Albuterol inhaled as per pulmonology (3) Elevated troponin Current visit: Yes Status: Acute Likely secondary to underlying pneumothorax but we will trend her troponin to (4) Tobacco abuse Current visit: No Status: Acute Chronic cigarette smoker and not willing to give up. (5) CAD (coronary artery disease) Current visit: No Status: Acute Stable coronary artery disease Qualifiers: Coronary Disease-Associated Artery/Lesion type: [place] artery [place] vs. transplanted heart: [place] heart Associated angina: without angina Qualified Code(s): I25.10 - Atherosclerotic heart disease of [place] coronary artery without angina pectoris (6) Hypertension Current visit: No Status: Chronic Stable hypertension. Qualifiers: Hypertension type: essential hypertension Qualified Code(s): I10 - Essential (primary) hypertension (7) DVT prophylaxis Current visit: No Status: Acute SCD Medical decision-making this patient has a moderate to severe risk of worsening in spite of being on appropriate treatment due to the underlying medical issues. Internal Medicine - H&P: HPI Chief complaint: Worsening shortness of breath Admitted From: Emergency Dept Plans for Post Hospital Care: Home History of present illness: PCP: Nurse practitioner Elias Martinez Brief past medical history: Hypertension, coronary artery disease, dyslipidemia , mild COPD, History of present medical illness: Patient was experiencing shortness of breath for the past 48 hours. Noted that her shortness of breath was getting aggressively was in last 24 hours. Last night she woke up around 3:00 and noted that she was not able to take a deep breath. Patient was concerned regarding this new development. Patient called squad and when the squad came it was noted that her saturation was in 70s. She was brought to the hospital. Patient denies chest pain, nausea, vomiting, abdominal pain, dizziness or diarrhea. Course in the emergency room: Patient was evaluated in the emergency room. She underwent radiological examination of the chest. Radiology examination of chest was suggestive of a right-sided pneumothorax. A right-sided chest tube was placed in the emergency room. After the chest tube placement patient failed much better. Reason for admission: Right-sided spontaneous pneumothorax likely secondary to underlying COPD. Family history: Noncontributory Past Med Surg Social Fam HX - Past Medical History Medical history: asthma, COPD, hypertension Psychiatric history: no psych history - Past Surgical History Surgical History: orthopedic, other (left wrist fracture repair), other (tubal ligation) - Social History Smoking Status: Current every day smoker Smokeless Tobacco Status: No Alcohol use: none Drug use: none Internal Medicine - H&P: Meds Albuterol Sulfate [Albuterol Inhaler] 2 puff IH Q6HR PRN 09/14/16 [History] Amitriptyline [Elavil] 25 mg PO DAILY 09/14/16 [History] Estradiol [Estrace] 1 mg PO DAILY 09/14/16 [History] Gabapentin [Neurontin] 300 mg PO TID 09/14/16 [History] Progesterone,Micronized [Progesterone] 200 mg PO DAILY 09/14/16 [History] Aspirin 81 mg PO DAILY #60 tab.chew 09/17/16 [Rx] Atorvastatin [Lipitor] 80 mg PO HS #60 tablet 09/17/16 [Rx] Carvedilol [Coreg] 3.125 mg PO BIDWM #60 tablet 09/17/16 [Rx] Lisinopril [Zestril] 2.5 mg PO DAILY #60 tablet 09/17/16 [Rx] levoFLOXacin [Levaquin] 500 mg PO DAILY 02/02/17 [History] 3 Allergy/AdvReac Type Severity Reaction Status Date / Time No Known Allergies Allergy Verified 09/13/16 18:14 All Systems PM: A 10-system review of systems was performed and is negative for pertinent findings except as documented above in the HPI. - Constitutional Constitutional: no chills, no fever(s), no night sweats - EENT Eyes: no change in vision, no discharge, no pain, no photophobia Ears: no ear discharge, no ear pain, no tinnitus Nose, mouth and throat: no dysphagia, no nasal discharge, no neck pain, no sore throat - Cardiovascular Cardiovascular ROS IM: no chest pain, no diaphoresis, no dyspnea, no lightheadedness, no palpitations, no syncope - Respiratory Respiratory: cough, dyspnea, wheezing, excessive phlegm production - Gastrointestinal Gastrointestinal: no abdominal pain, no diarrhea, no hematemesis, no hematochezia, no melena, no nausea, no vomiting - Genitourinary Genitourinary: no change in urinary stream, no dysuria, no flank pain, no hematuria - Musculoskeletal Musculoskeletal ROS IM: no numbness, no tingling - Integumentary Integumentary IM: no rash, no unusual bruising - Neurological Neurological ROS: no confusion, no convulsions, no focal weakness, no numbness, no tingling, no tremor(s) - Hematologic/Lymphatic Hematologic/Lymphatic: no easy bruising - Constitutional Vitals: Temp Pulse Resp BP Pulse Ox 97.3 F L 55 16 102/62 98 02/02/17 05:59 02/02/17 08:53 02/02/17 08:53 02/02/17 08:53 02/02/17 08:53 General appearance: Present: A&O X 3, pleasant, no acute distress, answers questions appropriately - Head Head exam: Present: atraumatic, normocephalic - Eye Eye exam: Present: PERRL, conjuntiva pink, sclera anicteric Pupils: Present: PERRL - Neck Neck exam general surgery: Present: supple, trachea midline. Absent: lymphadenopathy - Respiratory Respiratory exam: Present: CTAB. Absent: accessory muscle use, rales, rhonchi, wheezes Additional comments: Right-sided chest tube noted. - Cardiovascular Cardiovascular exam: Present: RRR, +S1, +S2. Absent: diastolic murmur, gallop, rubs, systolic murmur - GI/Abdominal GI/Abdominal exam: Present: normal bowel sounds, soft, no peritoneal signs. Absent: distended, tenderness - Extremities Exam Extremities exam: Present: warm, radial pulses palpable and symmetrical. Absent : calf tenderness, cyanotic, pedal edema - Neurological Exam Neurological exam: Present: CN II-XII intact, oriented X3, no focal deficits. Absent: pronater drift, facial droop, speech deficit - Skin Skin exam: Present: dry, intact Internal Med - H&P Results - Labs CBC & Chem 7: 02/02/17 06:15 11/09/17 06:15 Labs: Case discussed with press operator printing.
--- NOTE | 2017-02-02 09:55 | Pulmonology Consult Note ---
Date of Encounter: 02/02/17 Time of Encounter: 09:30 Assessment and Plan (1) Pneumothorax, acute Current Visit: Yes Status: Acute This occurred as a spontaneous pneumothorax probable rupture of subpleural bullae patient had a pleurex catheter connected to underwater seal drainage the repeat CXR showed complete resolution of pneumothorax , there is no water leak , will leave the chest tube to underwater seal drainage since there is no air leak with near resolution of PTX in imaging wont put it on suction will clamp it tomorrow after repeat imaging in the morning. (2) Acute exacerbation of chronic obstructive airways disease Current Visit: No Status: Acute Since patient had flu symptoms will check for rapid flu test , will continue the current bronchodilator regimen and antibiotic choice. (3) Tobacco abuse Current Visit: No Status: Acute Counseled extensively contemplating to stop smoking will add nicotine replacement therapy. History of Present Illness Consult date: 02/02/17 Requesting physician: Jorge Luis Schaefer Reason for consult: pneumothorax (chest tube management) Chief complaint: Shortness of Breadth History of present illness: 56 year old female with past medical history significant for chronic smoking history , COPD last PFT showed moderate airway obstruction with hyperinflation , now coming with 2 day increased shortness of breadth , woke up from with increased shortness of breadth 2-3 days ago she had flu like symptoms with some increased cough and sputum production from the baseline , the CXR showed Right lower pneumothorax and compressive atelectasis had pleural catheter put in which lead to resolution of pneumothorax and improvement of symptoms Pulmonary was consulted for Chest tube management. Past Med Surg Social Fam HX - Past Medical History Medical history: asthma, COPD, hypertension Psychiatric history: no psych history - Past Surgical History Surgical History: orthopedic, other (left wrist fracture repair), other (tubal ligation) - Social History Smoking Status: Current every day smoker Smokeless Tobacco Status: No Alcohol use: none Drug use: none Medications and Allergies Albuterol Sulfate [Albuterol Inhaler] 2 puff IH Q6HR PRN 09/14/16 [History] Amitriptyline [Elavil] 25 mg PO DAILY 09/14/16 [History] Estradiol [Estrace] 1 mg PO DAILY 09/14/16 [History] Gabapentin [Neurontin] 300 mg PO TID 09/14/16 [History] Progesterone,Micronized [Progesterone] 200 mg PO DAILY 09/14/16 [History] Aspirin 81 mg PO DAILY #60 tab.chew 09/17/16 [Rx] Atorvastatin [Lipitor] 80 mg PO HS #60 tablet 09/17/16 [Rx] Carvedilol [Coreg] 3.125 mg PO BIDWM #60 tablet 09/17/16 [Rx] Lisinopril [Zestril] 2.5 mg PO DAILY #60 tablet 09/17/16 [Rx] levoFLOXacin [Levaquin] 500 mg PO DAILY 02/02/17 [History] 3 Allergy/AdvReac Type Severity Reaction Status Date / Time No Known Allergies Allergy Verified 09/13/16 18:14 All Systems: A 10-system review of systems was performed and is negative for pertinent findings except as documented above in the HPI. Physical Examination Vital Signs: Vital Signs, Last 4 Hours Pulse Resp BP Pulse Ox 02/02/17 08:53 55 16 102/62 98 General appearance: other (mild respiratory distress) Auscultation: right: diminished breath sounds (in the bases ), bilateral: wheezes (mild scattered wheezes) Results - Laboratory Findings CBC and BMP: 02/02/17 06:15 02/02/17 06:15 Abnormal lab findings: Abnormal lab results WBC 18.8 K/mcL (4.3-11.1) H 02/02/17 06:15 RBC 4.99 M/mcL (3.82-4.97) H 02/02/17 06:15 Hgb 15.6 g/dL (11.5-15.4) H 02/02/17 06:15 Hct 46.9 % (35.3-44.9) H 02/02/17 06:15 MPV 8.9 fL (9.4-12.4) L 02/02/17 06:15 Neutrophils # 14.1 K/mcL (1.6-8.9) H 02/02/17 06:15 Monocytes # 1.4 K/mcL (0.0-1.3) H 02/02/17 06:15 Eosinophils # 0.9 K/mcL (0.0-0.6) H 02/02/17 06:15 BUN 29 mg/dL (7-20) H 02/02/17 06:15 BUN/Creatinine Ratio 39 (6-26) H 02/02/17 06:15 Glucose 171 mg/dL (70-99) H 02/02/17 06:15 Calculated Osmolality 306 (280-300) H 02/02/17 06:15 Troponin I 0.24 ng/mL (0-0.03) H* 02/02/17 06:15 Consult Discharge Plan - Plan Referrals: Elias Martinez CNP [Primary Care Provider] -
[2017-02-02] MEDS: 0.9 % Sodium Chloride 1,000 ML IVC SCH (10:25)
[2017-02-02] MEDS: Levofloxacin 750 MG/150 ML 750 MG/150 ML BAG IVPB SCH (10:26)
[2017-02-02] MEDS: Budesonide/Formoterol 80/4.5 MDI IH SCH ×2 (13:02→19:45)
[2017-02-02] MEDS: Gabapentin 300 MG CAPSULE PO SCH ×2 (14:45→20:30)
[2017-02-02] MEDS: Nicotine 21 MG PATCH.TD24 TD SCH (17:42)
--- NOTE | 2017-02-02 18:24 | Electrocardiograph Report ---
[place] [id number] Test Date: 2017-02-02 Pat Name: Jaja Kirkland Department: 103 Room: 2N14 Gender: F Weight Shifter: : 1960 Requested By: Baljeet Robb Order Number: [id number] Reading MD: Estuardo Lopez MD Measurements Intervals [place] Rate: 56 P: 21 [place]: 132 QRS: 76 QRSD: 88 T: 82 QT: 439 QTc: 430 Interpretive Statements SINUS BRADYCARDIA BASELINE ARTIFACT Electronically Signed On 02-02-2017 18:23:18 EST by Estuardo Lopez MD
[2017-02-02] MEDS: Albuterol 2.5 MG/3 ML NEBULIZER IH PRN (19:45)
[2017-02-02] MEDS: *HR* OxyCODONE/APAP 5/325 TABLET PO PRN (20:30)
[2017-02-03] MEDS: 0.9 % Sodium Chloride 1,000 ML IVC SCH (01:17)
[2017-02-03 05:25] LABS: Basophils % 0.1 %; Eosinophils % 0.1 %; Hematocrit 41.9 % (35.3-44.9); Immature Granulocytes % 0.5 % (0-4); Lymphocytes # 1.7 K/mcL (0.6-4.6); Lymphocytes % 11.8 %; Mean Corpuscular HGB Conc 32.9 g/dL (31.6-35.5); Mean Corpuscular Volume 94.2 fL (83.0-100.0); Mean Platelet Volume 9.3 fL (9.4-12.4); Monocytes # 1.1 K/mcL (0.0-1.3); Monocytes % 7.6 %; Neutrophils # 11.2 K/mcL (1.6-8.9); Platelet Count 220 K/mcL (140-400); Red Blood Count 4.45 M/mcL (3.82-4.97); Red Cell Distribution Width 13.8 % (11.5-14.5); Segmented Neutrophils % 79.9 %
[2017-02-03 05:32] LABS: Hemoglobin 13.8 g/dL (11.5-15.4)
[2017-02-03 05:33] LABS: INR 1.1; Prothrombin Time 11.3 Seconds (9.4-12.1)
[2017-02-03 05:52] LABS: Alanine Aminotransferase 16 Units/L (0-55); Albumin/Globulin Ratio 1.1 (1.1-2.2); Alkaline Phosphatase 51 Units/L (38-126); Aspartate Amino Transferase 19 Units/L (5-34); BUN/Creatinine Ratio 44 (6-26); Bilirubin,Total 0.5 mg/dL (0.2-1.2); Blood Urea Nitrogen 27 mg/dL (7-20); Calcium 8.9 mg/dL (8.6-10.8); Carbon Dioxide 21 mEq/L (19-29); Chloride 113 mEq/L (98-109); Cholesterol 244 mg/dL (< 200); Globulin 2.7 g/dL (2.4-3.5); Glucose 120 mg/dL (70-99); HDL Cholesterol 61 mg/dL (40-59); LDL Cholesterol,Calculated 165 mg/dL (0-99); Magnesium 1.8 mg/dL (1.6-2.6); Osmolality,Calculated 298 (280-300); Phosphorous 3.1 mg/dL (2.3-4.7); Potassium 4.2 mEq/L (3.5-4.5); Sodium 141 mEq/L (136-145); Total Protein 5.7 g/dL (6.0-8.3); Triglycerides 90 mg/dL (< 150); eGFR For African Americans > 60 (> 60); eGFR For Non-African Americans > 60 (> 60)
[2017-02-03] MEDS: Levofloxacin 750 MG/150 ML 750 MG/150 ML BAG IVPB SCH (07:54)
[2017-02-03] MEDS: predniSONE 20 MG TABLET PO SCH (07:54)
[2017-02-03] MEDS: Gabapentin 300 MG CAPSULE PO SCH ×3 (07:55→21:32)
[2017-02-03] MEDS: Aspirin 81 MG TAB.CHEW PO SCH (07:55)
[2017-02-03] MEDS: Budesonide/Formoterol 80/4.5 MDI IH SCH ×2 (08:33→21:45)
[2017-02-03] MEDS: Albuterol 2.5 MG/3 ML NEBULIZER IH PRN (08:35)
[2017-02-03] MEDS ORDERED: (Progesterone,Micronized [Progesterone] 200 MG) PO SCH (09:00)
--- NOTE | 2017-02-03 10:42 | Internal Med Progress Note ---
<Orville Medeiros - Last Filed: 02/03/17 11:46> Date of Encounter: 02/03/17 Time of Encounter: 10:40 - Assessment and plan (1) Pneumothorax, acute Current Visit: Yes Status: Acute Assessment and plan: CXR this morning demonstrated increasing size of PTX on right despite pleurex catheter tube in place Pulmonology consulted and managing chest tube; recommended consult to IR to switch chest tube to pigtail catheter Will likely place back on wall suction and recheck CXR to monitor for resolution (2) Acute exacerbation of chronic obstructive airways disease Current Visit: No Status: Acute Assessment and plan: Patient does have diffuse rhonchi this morning Continue breathing treatments, supplemental oxygen and steroids Currently on Levaquin 750 mg which pulmonology agreed to continue (3) Elevated troponin Current Visit: Yes Status: Acute Assessment and plan: She did have initial trop of 0.24 but this was not trended, will obtain 2 readings today; possible demand ischemia in setting of PTX Patient did have LHC this August which showed 90% stenosis of left PDA but could not get stent due to coughing spells during procedure If her troponins do trend upwards, will consult cardiology (4) CAD (coronary artery disease) Current Visit: No Status: Chronic Assessment and plan: She does have substernal heaviness and her troponins were elevated although lower than what they were previously when she had LHC in August Will trend troponins as above and possibly consult cardiology depending on results Continue home ASA, Lipitor, BB, ACEi Qualifiers: Coronary Disease-Associated Artery/Lesion type: [place] artery [place] vs. transplanted heart: [place] heart Associated angina: without angina Qualified Code(s): I25.10 - Atherosclerotic heart disease of [place] coronary artery without angina pectoris (5) Hypertension Current Visit: No Status: Chronic Assessment and plan: Blood pressures well controlled since admission Continue home Coreg, Lisinopril Qualifiers: Hypertension type: essential hypertension Qualified Code(s): I10 - Essential (primary) hypertension (6) Tobacco abuse Current Visit: No Status: Chronic Assessment and plan: She claims she recently quit 2 weeks ago but was previous 1 PPD smoker for 40 years Smoking cessation was counseled to patient Continue nicotine patch (7) DVT prophylaxis Current Visit: No Status: Acute Assessment and plan: SCDs - Subjective Interval history: Pt seen and examined. She states that she is breathing much better than when she initially arrived in the ED, but still feels somewhat short of breath at rest. She describes having substernal and low back pain that occurred after the chest tube insertion. She has no issues with fever, nausea, vomiting, diarrhea. She did admit to having a cold for about 3 weeks prior to admission and was coughing when her shortness of breath abruptly started. - Constitutional Vitals: Temp Pulse Resp BP Pulse Ox 98.5 F 60 16 131/67 95 02/03/17 06:35 02/03/17 08:02 02/03/17 08:35 02/03/17 06:35 02/03/17 08:35 General appearance: Present: cooperative, pleasant, no acute distress, answers questions appropriately - Head Head exam: Present: atraumatic, normocephalic - Eye Eye exam: Present: PERRL, conjuntiva pink, sclera anicteric - Neck Neck exam general surgery: Present: supple, trachea midline. Absent: lymphadenopathy - Respiratory Respiratory exam: Present: rhonchi (diffuse). Absent: accessory muscle use, rales, wheezes - Cardiovascular Cardiovascular exam: Present: distant heart sounds, RRR, +S1, +S2. Absent: diastolic murmur, gallop, rubs, systolic murmur - GI/Abdominal GI/Abdominal exam: Present: normal bowel sounds, soft, no peritoneal signs. Absent: distended, tenderness - Extremities Exam Extremities exam: Present: warm, radial pulses palpable and symmetrical. Absent : calf tenderness, cyanotic, pedal edema - Neurological Exam Neurological exam: Present: alert, no focal deficits. Absent: facial droop, speech deficit - Skin Skin exam: Present: dry, intact Internal Medicine: Result - Labs CBC & Chem 7: 02/03/17 04:43 02/03/17 04:43 Labs: Short CBC 02/03/17 Range/Units 04:43 WBC 14.0 H (4.3-11.1) K/mcL Hgb 13.8 D (11.5-15.4) g/dL Hct 41.9 (35.3-44.9) % Plt Count 220 (140-400) K/mcL Neutrophils # 11.2 H (1.6-8.9) K/mcL BMP 02/03/17 04:43 Sodium 141 Potassium 4.2 Chloride 113 H Carbon Dioxide 21 BUN 27 H Creatinine 0.61 Glucose 120 H Calcium 8.9 Liver Function 02/03/17 Range/Units 04:43 Total Bilirubin 0.5 (0.2-1.2) mg/dL AST 19 (5-34) Units/L ALT 16 (0-55) Units/L Alkaline Phosphatase 51 (38-126) Units/L Albumin 3.0 L (3.5-5.0) g/dL - ABG Interpretation ABG results: PT/INR, D-dimer PT 11.3 Seconds (9.4-12.1) 02/03/17 04:43 - Impressions Impressions Chest X-Ray 02/03/17 07:00 IMPRESSION: Increasing right pneumothorax, especially in the right lung base, with associated right middle and lower lobe atelectasis. No mediastinal shift is identified. The findings were sent to the Radiology Results Communication Center at 8:07 am on 02/03/2017to be communicated to a licensed caregiver. D/ / 02/03/2017 08:08:49 Krysta Contreras MD / [facility] Interpreting Provider: Krysta Contreras MD Consult Discharge Plan - Plan Referrals: Elias Martinez, HOSPICE SOCIAL WORKER [Primary Care Provider] - (closed due to ) <Venkata Shannon - Last Filed: 02/03/17 18:20> Date of Encounter: 02/03/17 - Constitutional Vitals: Temp Pulse Resp BP Pulse Ox 98.3 F 66 16 134/54 99 02/03/17 15:30 02/03/17 15:30 02/03/17 16:18 02/03/17 15:30 02/03/17 16:18 Internal Medicine: Result - Labs CBC & Chem 7: 02/03/17 14:40 02/03/17 04:43 Labs: Short CBC 02/03/17 02/03/17 Range/Units 04:43 14:40 WBC 14.0 H 14.7 H (4.3-11.1) K/mcL Hgb 13.8 D 13.0 (11.5-15.4) g/dL Hct 41.9 38.8 (35.3-44.9) % Plt Count 220 225 (140-400) K/mcL Neutrophils # 11.2 H (1.6-8.9) K/mcL BMP 02/03/17 04:43 Sodium 141 Potassium 4.2 Chloride 113 H Carbon Dioxide 21 BUN 27 H Creatinine 0.61 Glucose 120 H Calcium 8.9 Cardiac Enzymes 02/03/17 02/03/17 Range/Units 13:03 14:40 Troponin I 0.55 H* 0.54 H* (0-0.03) ng/mL Liver Function 02/03/17 Range/Units 04:43 Total Bilirubin 0.5 (0.2-1.2) mg/dL AST 19 (5-34) Units/L ALT 16 (0-55) Units/L Alkaline Phosphatase 51 (38-126) Units/L Albumin 3.0 L (3.5-5.0) g/dL - ABG Interpretation ABG results: PT/INR, D-dimer PT 11.6 Seconds (9.4-12.1) 02/03/17 14:40 - Impressions Impressions Drainage Catheter Insertion 02/03/17 00:00 IMPRESSION: Successful bedside exchange of a 8 Bulgarian chest tube for a new 10 Bulgarian locking loop drainage catheter for pneumothorax. D/ / Paolo Herrera MD / Paolo Herrera MD Interpreting Provider: Paolo Herrera MD Chest X-Ray 02/03/17 07:00 IMPRESSION: Increasing right pneumothorax, especially in the right lung base, with associated right middle and lower lobe atelectasis. No mediastinal shift is identified. The findings were sent to the Radiology Results Communication Center at 8:07 am on 02/03/2017to be communicated to a licensed caregiver. D/ / 02/03/2017 08:08:49 Krysta Contreras MD / [facility] Interpreting Provider: Krysta Contreras MD Chest X-Ray 02/03/17 11:28 IMPRESSION: 1. Stable positioning of a right chest tube which is mostly located outside the pleural space. Consider repositioning for more optimal placement. 2. Stable large right pneumothorax. 3. Emphysema. D/ / 02/03/2017 12:21:43 Lynne Ying MD / [facility] Interpreting Provider: Lynne Ying MD Chest X-Ray 02/03/17 12:07 IMPRESSION: 1. Interval replacement of the right pleural tube with significant interval improvement of the right pneumothorax, now small. 2. Re-expansion of the right middle and lower lobe with persistent atelectasis. D/ / 02/03/2017 12:40:51 Lynne Ying MD / [facility] Interpreting Provider: Lynne Ying MD - Attending Attestation I conducted a face to face diagnostic evaluation of this patient and my medical decision-making was reviewed with the Resident Physician, Dr Orville Medeiros. I agree with the documented findings, disposition and treatment plan as described except to the extent set forth below: I discussed the case with audio visual facilities engineer. The current chest tube was kinked. This will be replaced by interventional radiology and reconnected to suction. We will obtain repeat chest x-ray this afternoon. I spent ample of time providing smoking cessation counseling to Jaja.
[2017-02-03] MEDS: *HR* OxyCODONE/APAP 5/325 TABLET PO PRN ×2 (12:19→21:32)
--- NOTE | 2017-02-03 12:22 | IR Procedure Note ---
Date of procedure: 02/03/17 Consent Obtained: Verbal consent Timeout: Correct patient and procedure verified, Correct site verified, Time out performed, Skin prep completed Local anesthetic: Lidocaine 1% Indications: Poorly functioning chest tube Procedure Performed: Chest tube exchange Site/Technique: 10fr tube placed over a wire, removal of 8fr thora catheter Results/Findings: Post CXR had been ordered. Hooked to wall suction. Estimated blood loss (cc): 0 Complications: None; Tolerated procedure well Post Procedure Treatment Plan: Monitoring in pts room
--- NOTE | 2017-02-03 14:03 | Pulmonology Progress Note ---
Date of Encounter: 02/03/17 Time of Encounter: 11:00 Assessment and Plan (1) Pneumothorax, acute Current Visit: Yes Status: Acute Patient 8 [place] pleural catheter got kinked which led to reaccumulation of pneumothorax ,it was changed to 10 [place] pigtail catheter , it is connected to water seal drainage and to suction, there is airleak will monitor over course of next 48 hours . (2) Acute exacerbation of chronic obstructive airways disease Current Visit: No Status: Acute To continue the current regimen of bronchodilators, antibiotics and steroids. (3) Tobacco abuse Current Visit: No Status: Chronic Patient is contemplating to stop smoking. Subjective Principal diagnosis: Pneumothorax Interval history: Patient presented with shortness of breadth came as COPD exacerbation but her CXR showed spontaneous pneumothorax had a 8 [place] pleural catheter initially there was near resolution of pneumothorax today morning CXR showed worsening of pneumothorax with lung collapse removed the dressing it looks like the catheter was kinked repositioned the catheter doesnt look it was working. IR was consulted did a wire exchange with 10 [place]or[place] pigtail catheter. Objective PUL Vital signs: Last Vital Signs Temp 98.4 F 02/03/17 11:14 Pulse 65 02/03/17 11:46 Resp 16 02/03/17 11:14 BP 126/65 02/03/17 11:14 Pulse Ox 99 02/03/17 11:14 General appearance: other (mild respiratory distress) Results - Laboratory Findings CBC and BMP: 02/03/17 14:40 02/03/17 04:43 PT/INR, D-dimer PT 11.3 Seconds (9.4-12.1) 02/03/17 04:43 Abnormal lab findings: Abnormal lab results WBC 14.0 K/mcL (4.3-11.1) H 02/03/17 04:43 MPV 9.3 fL (9.4-12.4) L 02/03/17 04:43 Neutrophils # 11.2 K/mcL (1.6-8.9) H 02/03/17 04:43 Chloride 113 mEq/L (98-109) H 02/03/17 04:43 BUN 27 mg/dL (7-20) H 02/03/17 04:43 BUN/Creatinine Ratio 44 (6-26) H 02/03/17 04:43 Glucose 120 mg/dL (70-99) H 02/03/17 04:43 Troponin I 0.24 ng/mL (0-0.03) H* 02/02/17 06:15 Serum Total Protein 5.7 g/dL (6.0-8.3) L 02/03/17 04:43 Albumin 3.0 g/dL (3.5-5.0) L 02/03/17 04:43 Cholesterol 244 mg/dL (< 200) H 02/03/17 04:43 LDL Cholesterol, Calc 165 mg/dL (0-99) H 02/03/17 04:43 HDL Cholesterol 61 mg/dL (40-59) H 02/03/17 04:43 - Clinical Findings Intake & Output: Intake & Output 02/02/17 02/03/17 02/03/17 23:59 07:59 15:59 Intake Total 240 / 240 1000 / 1000 370 / 370 Output Total 0 / 0 Balance 240 / 240 1000 / 1000 370 / 370 Weight 48.9 kg Consult Discharge Plan - Plan Referrals: Elias Martinez, TANK CAR CLEANER [Primary Care Provider] - (closed due to )
[2017-02-03] MEDS ORDERED: *HR* Heparin 5,000 UNIT/ML VIAL IVP PRN (14:22)
[2017-02-03] MEDS ORDERED: *HR* Heparin 5,000 UNIT/ML VIAL IVP ONE (14:22)
[2017-02-03] MEDS ORDERED: Heparin 25,000 UNIT/500 ML D5W 25,000 UNIT/500 ML MLS IVC SCH (14:30)
--- NOTE | 2017-02-03 15:12 | Cardiology Consult Note ---
Date of Encounter: 02/03/17 Time of Encounter: 15:07 Assessment and Plan (1) Elevated troponin Current Visit: Yes Status: Acute Troponins 0.44, 0.55 in setting of hypoxia (O2 documented as 70s on EMS arrival) , COPD exacerbation and pneumothorax. Demand ischemia vs. NSTEMI. EKG unchanged from prior. Will continue to trend troponins. In the meantime will start heparin gtt. Continue ASA, Statin, BB, ACEi. Reported midsternal chest pain today radiating to right side of chest after chest tube exchanged, improved with percocet. Known CAD s/p NSTEMI 08/2016. LHC at that time showed severe one vessel CAD--90% left PDA, tortuous. No intervention at that time secondary to coughing fits resulting in marked movement in all four extremities. Pt reports coughing has improved, thinks she would be able to lie flat for cath and prefers to have it done while inpt. Will trend troponins, check echo and plan for LHC during her stay. NPO after midnight. Will order cardiac rehab since plan is for [facility]. Continue to follow. (2) Cardiomyopathy Current Visit: Yes Status: Acute EF 40% on echo 09/14/16. Segmental LV systolic dysfunction. Mild LVDD. ICMP. LHC 09/15/16 Severe 1 vessel disease--90% left PDA. 50% mLAD and 50% 1st diagonal. LMCA free of disease, minimal disease in LCx and OM. Recheck echo. Euvolemic on exam. Continue BB and ACEi. Qualifiers: Cardiomyopathy type: unspecified Qualified Code(s): I42.9 - Cardiomyopathy , unspecified (3) CAD (coronary artery disease) Current Visit: Yes Status: Chronic As above. ASA, Statin, BB, ACEi. Qualifiers: Coronary Disease-Associated Artery/Lesion type: [place] artery [place] vs. transplanted heart: [place] heart Associated angina: without angina Qualified Code(s): I25.10 - Atherosclerotic heart disease of [place] coronary artery without angina pectoris Discussion w patient/family: The assessment and plan as outlined above was discussed with the patient and/or family members who expressed understanding and agreement. All questions were answered. Thank you for involving us in the care of your patient. Please call with any questions. I will discuss all the above with Dr. Lopez and make changes as necessary. History of Present Illness Consult date: 02/03/17 Requesting physician: Orville Medeiros Consult reason: chest pain, elevated troponin Chief complaint: dyspnea, chest pain History of present illness: Ms. Kirkland is a 56 year old female with PMH of HTN, NSTEMI 08/2016, CAD, ICMP, HLD, COPD that presented to ED for 2 days of worsening dyspnea. O2 was reportedly in the 70s, CXR suggestive for right sided pneumothorax s/p chest tube placement. Chest tube was exchanged today and after she began having midsternal chest heaviness radiating to right side chest tube site. She states the pain improved with percocet, still having mild pain. Troponins are elevated- -0.44, 0.55 and cardiology was consulted for further evaluation. She is being treated for COPD exacerbation. Of note, when pt had her NSTEMI 08/2016, she was found to have severe 1 vessel CAD on LHC. There was 90% left PDA stenosis-- unable to be intervened on due to patients coughing fits that resulted in marked movement of all 4 extremities. Echo 09/14/16 EF 40%, segmental LV dysfunction, mild LVDD. Past Med Surg Social Fam HX - Past Medical History Medical history: asthma, cardiomyopathy, CHF, COPD, coronary artery disease, hypertension Psychiatric history: no psych history - Past Surgical History Surgical History: orthopedic, other (left wrist fracture repair), other (tubal ligation) - Social History Smoking Status: Current every day smoker Smokeless Tobacco Status: No Alcohol use: none Drug use: none Medications and Allergies Albuterol Sulfate [Albuterol Inhaler] 2 puff IH Q6HR PRN 09/14/16 [History] Amitriptyline [Elavil] 25 mg PO DAILY 09/14/16 [History] Estradiol [Estrace] 1 mg PO DAILY 09/14/16 [History] Gabapentin [Neurontin] 300 mg PO TID 09/14/16 [History] Progesterone,Micronized [Progesterone] 200 mg PO DAILY 09/14/16 [History] Aspirin 81 mg PO DAILY #60 tab.chew 09/17/16 [Rx] Atorvastatin [Lipitor] 80 mg PO HS #60 tablet 09/17/16 [Rx] Carvedilol [Coreg] 3.125 mg PO BIDWM #60 tablet 09/17/16 [Rx] Lisinopril [Zestril] 2.5 mg PO DAILY #60 tablet 09/17/16 [Rx] levoFLOXacin [Levaquin] 500 mg PO DAILY 02/02/17 [History] 3 Allergy/AdvReac Type Severity Reaction Status Date / Time No Known Allergies Allergy Verified 09/13/16 18:14 All Systems Review: A 10-system review of systems was performed and is negative for pertinent findings except as documented above in the HPI. - Cardiovascular Cardiovascular: as per HPI, chest pain at rest, chest pain with exertion, dyspnea at rest, dyspnea on exertion - Respiratory Respiratory: dyspnea, wheezing Physical Examination Vital Signs, Last 4 Hours Temp Pulse Resp BP Pulse Ox 02/03/17 11:46 65 02/03/17 11:14 98.4 F 55 16 126/65 99 Vital Signs Temp Pulse Resp BP Pulse Ox 02/03/17 15:13 83 02/03/17 11:46 65 02/03/17 11:14 98.4 F 55 16 126/65 99 02/03/17 08:35 16 95 02/03/17 08:02 60 02/03/17 06:35 98.5 F 84 18 131/67 99 02/03/17 05:04 98.5 F 75 20 116/74 94 02/02/17 23:58 98.4 F 65 18 116/74 94 02/02/17 20:03 98.0 F 70 20 116/74 92 02/02/17 19:45 18 92 02/02/17 16:15 98.5 F 83 16 120/70 95 Intake and Output 02/02/17 02/03/17 02/03/17 23:59 07:59 15:59 Intake Total 240 / 240 1000 / 1000 370 / 370 Output Total 0 / 0 Balance 240 / 240 1000 / 1000 370 / 370 Intake: IV Fluids 1000 / 1000 0.9 % Sodium Chloride 1,000 ML 1000 / 1000 @ 70 mls/hr IVC .[id number] [facility] Rx #:[id number] Oral 240 / 240 370 / 370 Output: Chest Tube Drainage 0 / 0 Right Mid-Axillary Chest #1 0 / 0 Other: Meal Dinner Lunch Percent of Meal Consumed 30% 90% Weight 48.9 kg Patient Weight 02/03/17 23:59 Weight 48.9 kg General: Conversant, No Apparent Distress HEENT: Atraumatic, Normocephaly, Mucus Membranes Moist Neck: No JVD, Normal carotid pulses Cardiac: Reg Rate and Rhythm, Normal S1 and S2, No Murmur Lungs: Other (rhonchi/wheezes noted, right sided chest tube in place) Neuro: Alert and responsive, No focal deficits noted Abdomen: Soft, Non-Tender Skin: No rashes noted on visualized skin Musculoskeletal: No Chest Wall Tenderness Extremities: No Clubbing, No Cyanosis, No Edema, Normal Pulses Results 02/03/17 04:43 02/03/17 04:43 Lab Results 02/03/17 02/03/17 02/03/17 04:43 04:43 04:43 WBC 14.0 H Hgb 13.8 D Hct 41.9 Plt Count 220 INR 1.1 APTT 26.0 Sodium 141 Potassium 4.2 Chloride 113 H Carbon Dioxide 21 BUN 27 H Creatinine 0.61 Glucose 120 H Calcium 8.9 Magnesium 1.8 Total Bilirubin 0.5 AST 19 ALT 16 Alkaline Phosphatase 51 Troponin I 02/03/17 13:03 WBC Hgb Hct Plt Count INR APTT Sodium Potassium Chloride Carbon Dioxide BUN Creatinine Glucose Calcium Magnesium Total Bilirubin AST ALT Alkaline Phosphatase Troponin I 0.55 H* Short CBC 02/03/17 Range/Units 04:43 WBC 14.0 H (4.3-11.1) K/mcL Hgb 13.8 D (11.5-15.4) g/dL Hct 41.9 (35.3-44.9) % Plt Count 220 (140-400) K/mcL Neutrophils # 11.2 H (1.6-8.9) K/mcL BMP 02/03/17 Range/Units 04:43 Sodium 141 (136-145) mEq/L Potassium 4.2 (3.5-4.5) mEq/L Chloride 113 H (98-109) mEq/L Carbon Dioxide 21 (19-29) mEq/L BUN 27 H (7-20) mg/dL Creatinine 0.61 (0.57-1.11) mg/dL Glucose 120 H (70-99) mg/dL Calcium 8.9 (8.6-10.8) mg/dL Cardiac Enzymes 02/03/17 Range/Units 13:03 Troponin I 0.55 H* (0-0.03) ng/mL Liver Function 02/03/17 Range/Units 04:43 Total Bilirubin 0.5 (0.2-1.2) mg/dL AST 19 (5-34) Units/L ALT 16 (0-55) Units/L Alkaline Phosphatase 51 (38-126) Units/L Albumin 3.0 L (3.5-5.0) g/dL Impressions Drainage Catheter Insertion 02/03/17 00:00 IMPRESSION: Successful bedside exchange of a 8 Guyanese chest tube for a new 10 Guyanese locking loop drainage catheter for pneumothorax. D/ / Paolo Herrera MD / Paolo Herrera MD Interpreting Provider: Paolo Herrera MD Chest X-Ray 02/03/17 07:00 IMPRESSION: Increasing right pneumothorax, especially in the right lung base, with associated right middle and lower lobe atelectasis. No mediastinal shift is identified. The findings were sent to the Radiology Results Communication Center at 8:07 am on 02/03/2017to be communicated to a licensed caregiver. D/ / 02/03/2017 08:08:49 Krysta Contreras MD / [facility] Interpreting Provider: Krysta Contreras MD Chest X-Ray 02/03/17 11:28 IMPRESSION: 1. Stable positioning of a right chest tube which is mostly located outside the pleural space. Consider repositioning for more optimal placement. 2. Stable large right pneumothorax. 3. Emphysema. D/ / 02/03/2017 12:21:43 Lynne Ying MD / [email or web address] Interpreting Provider: Lynne Ying MD Chest X-Ray 02/03/17 12:07 IMPRESSION: 1. Interval replacement of the right pleural tube with significant interval improvement of the right pneumothorax, now small. 2. Re-expansion of the right middle and lower lobe with persistent atelectasis. D/ / 02/03/2017 12:40:51 Lynne Ying MD / [facility] Interpreting Provider: Lynne Ying MD Active Medications Al Hydrox/Mg Hydrox/Simethicone (Maalox) 15 ml PO Q6HR PRN PRN Reason: Dyspepsia Stop: 08/04/17 09:40 Albuterol Sulfate (Proventil Neb) 2.5 mg IH [id number] PRN; Protocol PRN Reason: Shortness Of Breath/Wheezing Stop: 08/04/17 09:53 Last Admin: 02/03/17 08:35 Dose: 2.5 mg Albuterol/Ipratropium (Duoneb) 3 ml IH [id number] JOSEPH Stop: 08/05/17 16:01 Amitriptyline HCl (Elavil) 25 mg PO HS JOSEPH Stop: 08/05/17 21:01 Aspirin (Aspirin) 81 mg PO DAILY JOSEPH Stop: 08/05/17 09:01 Last Admin: 02/03/17 07:55 Dose: 81 mg Atorvastatin Calcium (Lipitor) 80 mg PO HS JOSEPH Stop: 08/04/17 21:01 Last Admin: 02/02/17 20:30 Dose: 80 mg Budesonide/Formoterol Fumarate (Symbicort) 2 puff IH BIDR JOSEPH PRN Reason: Protocol Stop: 08/04/17 10:01 Last Admin: 02/03/17 08:33 Dose: 2 puff Carvedilol (Coreg) 3.125 mg PO BIDWM JOSEPH PRN Reason: Protocol Stop: 08/04/17 17:01 Last Admin: 02/03/17 07:55 Dose: 3.125 mg Docusate Sodium (Colace) 100 mg PO BID PRN PRN Reason: Constipation Stop: 08/04/17 09:40 Estradiol (Estrace) 1 mg PO DAILY JOSEPH Stop: 08/05/17 09:01 Last Admin: 02/03/17 07:54 Dose: 1 mg Gabapentin (Neurontin) 300 mg PO TID JOSEPH Stop: 08/04/17 15:01 Last Admin: 02/03/17 15:09 Dose: 300 mg Heparin Sodium (Porcine) (Heparin) 2,900 unit 60 unit/kg (2900 unit) IVP Q6HR PRN PRN Reason: SEE COMMENTS Stop: 08/05/17 14:23 Heparin Sodium (Porcine) (Heparin) 1,500 unit 30 unit/kg (1500 unit) IVP Q6H PRN PRN Reason: SEE COMMENTS Stop: 08/05/17 14:23 Levofloxacin/Dextrose (Levaquin Premix 750mg/150 Ml) 750 mg in 150 mls @ 100 mls/hr IVPB DAILY JOSEPH PRN Reason: Protocol Stop: 08/04/17 10:01 Last Admin: 02/03/17 07:54 Dose: 100 mls/hr Heparin Sodium/Dextrose (Heparin 25,000 Unit/500 Ml D5w) 25,000 unit in 500 mls @ 11.736 mls/hr IVC .Q24H JOSEPH; 12 UNIT/KG/HR PRN Reason: Protocol Stop: 08/05/17 14:31 Lisinopril (Zestril) 2.5 mg PO DAILY JOSEPH PRN Reason: Protocol Stop: 08/05/17 09:01 Last Admin: 02/03/17 07:55 Dose: 2.5 mg Morphine Sulfate (Morphine Sulfate) 2 mg IVP Q4HR PRN PRN Reason: Severe Pain (7-10) Stop: 08/04/17 09:40 Naloxone HCl (Narcan) 0.4 mg IVP Q2MIN PRN PRN Reason: Opioid Reversal Stop: 08/04/17 09:40 Nicotine (Nicoderm) 21 mg TD Q24H JOSEPH PRN Reason: Protocol Stop: 08/04/17 16:46 Last Admin: 02/02/17 17:42 Dose: 21 mg Oxycodone/Acetaminophen (Percocet 5/325) 1 each PO Q8HR PRN PRN Reason: Pain Stop: 08/04/17 15:06 Last Admin: 02/03/17 12:19 Dose: 1 each Prednisone (Prednisone) 40 mg PO DAILY [facility] Stop: 08/05/17 09:01 Last Admin: 02/03/17 07:54 Dose: 40 mg - Imaging and Cardiology Echo: report reviewed Cardiac cath: report reviewed - EKG Interpretation EKG results cardiology: personally reviewed, other (12 hr tele AVG HR 72, SR, no significant pauses or arrhythmias) Consult Discharge Plan - Plan Referrals: Elias Martinez, HAND STITCHER [Primary Care Provider] - (closed due to )
[2017-02-03 15:23] LABS: Hematocrit 38.8 % (35.3-44.9); Mean Corpuscular HGB Conc 33.5 g/dL (31.6-35.5); Mean Corpuscular Hemoglobin 31.5 pg (28.0-33.3); Mean Corpuscular Volume 93.9 fL (83.0-100.0); Mean Platelet Volume 9.5 fL (9.4-12.4); Platelet Count 225 K/mcL (140-400); Red Blood Count 4.13 M/mcL (3.82-4.97); Red Cell Distribution Width 14.1 % (11.5-14.5)
[2017-02-03 15:24] LABS: INR 1.1; Prothrombin Time 11.6 Seconds (9.4-12.1)
[2017-02-03 15:27] LABS: Activated Partial Thrombo Time 25.1 Seconds (26.0-36.0)
[2017-02-03] MEDS: Nicotine 21 MG PATCH.TD24 TD SCH (15:49)
[2017-02-03] MEDS: *HR* Morphine 2 MG/ML SYRINGE IVP PRN (15:50)
[2017-02-03] MEDS: Ipratropium/Albuterol Neb 3 ML IH SCH ×2 (16:17→21:45)
[2017-02-03] MEDS: *HR* Heparin 5,000 UNIT/ML VIAL IVP PRN (23:54)
[2017-02-04 05:37] LABS: Basophils % 0.3 %; Eosinophils # 0.1 K/mcL (0.0-0.6); Eosinophils % 0.9 %; Hematocrit 36.6 % (35.3-44.9); Hemoglobin 12.1 g/dL (11.5-15.4); Immature Granulocytes % 0.4 % (0-4); Lymphocytes # 3.9 K/mcL (0.6-4.6); Lymphocytes % 31.9 %; Mean Corpuscular HGB Conc 33.1 g/dL (31.6-35.5); Mean Corpuscular Volume 93.8 fL (83.0-100.0); Mean Platelet Volume 9.4 fL (9.4-12.4); Monocytes # 0.7 K/mcL (0.0-1.3); Monocytes % 5.6 %; Neutrophils # 7.5 K/mcL (1.6-8.9); Platelet Count 215 K/mcL (140-400); Red Cell Distribution Width 14.2 % (11.5-14.5); Segmented Neutrophils % 60.9 %
[2017-02-04 06:09] LABS: BUN/Creatinine Ratio 50 (6-26); Blood Urea Nitrogen 30 mg/dL (7-20); Calcium 8.3 mg/dL (8.6-10.8); Carbon Dioxide 23 mEq/L (19-29); Chloride 111 mEq/L (98-109); Glucose 95 mg/dL (70-99); Osmolality,Calculated 298 (280-300); Potassium 3.5 mEq/L (3.5-4.5); Sodium 141 mEq/L (136-145); eGFR For African Americans > 60 (> 60); eGFR For Non-African Americans > 60 (> 60)
[2017-02-04] MEDS: *HR* Morphine 2 MG/ML SYRINGE IVP PRN ×3 (06:25→20:57)
[2017-02-04] MEDS: Ipratropium/Albuterol Neb 3 ML IH SCH ×4 (07:57→22:40)
[2017-02-04] MEDS: predniSONE 20 MG TABLET PO SCH (08:13)
[2017-02-04] MEDS: Aspirin 81 MG TAB.CHEW PO SCH (08:14)
[2017-02-04] MEDS: Gabapentin 300 MG CAPSULE PO SCH ×3 (08:14→20:57)
[2017-02-04] MEDS: Levofloxacin 750 MG/150 ML 750 MG/150 ML BAG IVPB SCH (08:27)
[2017-02-04] MEDS: Budesonide/Formoterol 80/4.5 MDI IH SCH ×2 (10:23→22:39)
--- NOTE | 2017-02-04 10:26 | Internal Med Progress Note ---
<WaldemarOrville - Last Filed: 02/04/17 13:28> Date of Encounter: 02/04/17 Time of Encounter: 10:24 - Assessment and plan (1) Pneumothorax, acute Current Visit: Yes Status: Acute Assessment and plan: CXR this morning demonstrated re-expansion of lung with chest tube in place Pulmonology consulted and managing chest tube, will defer to them if she requires wall suction vs. water seal Recheck CXR in AM to monitor for resolution (2) Acute exacerbation of chronic obstructive airways disease Current Visit: No Status: Acute Assessment and plan: Patient's breathing sounds improved this morning Continue breathing treatments, supplemental oxygen and steroids Currently on Levaquin 750 mg (3) Elevated troponin Current Visit: Yes Status: Acute Assessment and plan: She did have initial trop of 0.24 which increased to 0.55, 0.46 and she is no longer having chest pain Cardiology consulted and plan on LHC once she recovers more from acute PTX, likely early next week; heparin ggt stopped Patient did have LHC this August which showed 90% stenosis of left PDA but could not get stent due to coughing spells during procedure (4) CAD (coronary artery disease) Current Visit: Yes Status: Chronic Assessment and plan: Chest pain resolved from yesterday Continue home ASA, Lipitor, BB, ACEi Qualifiers: Coronary Disease-Associated Artery/Lesion type: [place] artery [place] vs. transplanted heart: [place] heart Associated angina: without angina Qualified Code(s): I25.10 - Atherosclerotic heart disease of [place] coronary artery without angina pectoris (5) Hypertension Current Visit: No Status: Chronic Assessment and plan: Blood pressures well controlled since admission Continue home Coreg, Lisinopril Qualifiers: Hypertension type: essential hypertension Qualified Code(s): I10 - Essential (primary) hypertension (6) Tobacco abuse Current Visit: No Status: Chronic Assessment and plan: She claims she recently quit 2 weeks ago but was previous 1 PPD smoker for 40 years Smoking cessation was counseled to patient Continue nicotine patch (7) DVT prophylaxis Current Visit: No Status: Acute Assessment and plan: Heparin 5000 units BID - Subjective Interval history: Pt seen and examined. She states her breathing is fine this morning but does have back pain from where the chest tube was inserted. Her substernal chest pain that she had yesterday has since resolved and she denies any cough, fever, chills, nausea, vomiting or diarrhea. She has not eaten anything at night in preparation for [facility] per cardiology. - Constitutional Vitals: Temp Pulse Resp BP Pulse Ox 97.8 F 63 18 130/74 94 02/04/17 08:10 02/04/17 08:10 02/04/17 08:10 02/04/17 08:10 02/04/17 08:10 General appearance: Present: cooperative, pleasant, no acute distress, answers questions appropriately - Head Head exam: Present: atraumatic, normocephalic - Eye Eye exam: Present: PERRL, conjuntiva pink, sclera anicteric - Neck Neck exam general surgery: Present: supple, trachea midline. Absent: lymphadenopathy - Respiratory Respiratory exam: Present: decreased breath sounds (at bases), wheezes (mild). Absent: accessory muscle use, rales, rhonchi - Cardiovascular Cardiovascular exam: Present: RRR, +S1, +S2. Absent: diastolic murmur, gallop, rubs, systolic murmur - GI/Abdominal GI/Abdominal exam: Present: normal bowel sounds, soft, no peritoneal signs. Absent: distended, tenderness - Extremities Exam Extremities exam: Present: warm, radial pulses palpable and symmetrical. Absent : calf tenderness, cyanotic, pedal edema - Neurological Exam Neurological exam: Present: alert, no focal deficits. Absent: facial droop, speech deficit - Skin Skin exam: Present: dry, intact Internal Medicine: Result - Labs CBC & Chem 7: 02/04/17 05:17 02/04/17 05:17 Labs: Short CBC 02/03/17 02/04/17 Range/Units 14:40 05:17 WBC 14.7 H 12.2 H (4.3-11.1) K/mcL Hgb 13.0 12.1 (11.5-15.4) g/dL Hct 38.8 36.6 (35.3-44.9) % Plt Count 225 215 (140-400) K/mcL Neutrophils # 7.5 (1.6-8.9) K/mcL BMP 02/04/17 05:17 Sodium 141 Potassium 3.5 Chloride 111 H Carbon Dioxide 23 BUN 30 H Creatinine 0.60 Glucose 95 Calcium 8.3 L Cardiac Enzymes 02/03/17 02/03/17 02/03/17 Range/Units 13:03 14:40 18:33 Troponin I 0.55 H* 0.54 H* 0.46 H* (0-0.03) ng/mL - ABG Interpretation ABG results: PT/INR, D-dimer PT 11.6 Seconds (9.4-12.1) 02/03/17 14:40 - Impressions Impressions Drainage Catheter Insertion 02/03/17 00:00 IMPRESSION: Successful bedside exchange of a 8 Armenian chest tube for a new 10 Armenian locking loop drainage catheter for pneumothorax. D/ / Paolo Herrera MD / Paolo Herrera MD Interpreting Provider: Paolo Herrera MD Chest X-Ray 02/03/17 11:28 IMPRESSION: 1. Stable positioning of a right chest tube which is mostly located outside the pleural space. Consider repositioning for more optimal placement. 2. Stable large right pneumothorax. 3. Emphysema. D/ / 02/03/2017 12:21:43 Lynne Ying MD / [email or web address] Interpreting Provider: Lynne Ying MD Chest X-Ray 02/03/17 12:07 IMPRESSION: 1. Interval replacement of the right pleural tube with significant interval improvement of the right pneumothorax, now small. 2. Re-expansion of the right middle and lower lobe with persistent atelectasis. D/ / 02/03/2017 12:40:51 Lynne Ying MD / [email or web address] Interpreting Provider: Lynne Ying MD Chest X-Ray 02/04/17 06:00 IMPRESSION: Stable chest. D/ / 02/04/2017 09:25:49 Yane Ferguson MD / [facility] Interpreting Provider: Yane Ferguson MD Consult Discharge Plan - Plan Referrals: Artrip,Elias, BARGE WORKER [Primary Care Provider] - (closed due to ) <Venkata Shannon - Last Filed: 02/04/17 17:11> Date of Encounter: 02/04/17 - Constitutional Vitals: Temp Pulse Resp BP Pulse Ox 97.9 F 80 16 107/69 98 02/04/17 16:37 02/04/17 15:45 02/04/17 15:45 02/04/17 15:45 02/04/17 15:45 Internal Medicine: Result - Labs CBC & Chem 7: 02/04/17 05:17 02/04/17 05:17 Labs: Short CBC 02/04/17 Range/Units 05:17 WBC 12.2 H (4.3-11.1) K/mcL Hgb 12.1 (11.5-15.4) g/dL Hct 36.6 (35.3-44.9) % Plt Count 215 (140-400) K/mcL Neutrophils # 7.5 (1.6-8.9) K/mcL BMP 02/04/17 05:17 Sodium 141 Potassium 3.5 Chloride 111 H Carbon Dioxide 23 BUN 30 H Creatinine 0.60 Glucose 95 Calcium 8.3 L Cardiac Enzymes 02/03/17 Range/Units 18:33 Troponin I 0.46 H* (0-0.03) ng/mL - ABG Interpretation ABG results: PT/INR, D-dimer PT 11.6 Seconds (9.4-12.1) 02/03/17 14:40 - Impressions Impressions Chest X-Ray 02/04/17 06:00 IMPRESSION: Stable chest. D/ / 02/04/2017 09:25:49 Yane Ferguson MD / [facility] Interpreting Provider: Yane Ferguson MD - Attending Attestation I conducted a face to face diagnostic evaluation of this patient and my medical decision-making was reviewed with the Resident Physician, Dr Orvilel Medeiros. I agree with the documented findings, disposition and treatment plan as described except to the extent set forth below: Patient reports improvement in her shortness of breath last 24 hours. Lung auscultation reveals decreased breath sounds at the right base. Plan: Continue chest tube. I have discussed the plan with diamond sander recommends continuing wall suction at this time. Discussed case with cardiology recommends putting off cardiac catheterization until she is stable from the pneumothorax standpoint and discontinuing heparin drip at this time.
[2017-02-04] MEDS: *HR* OxyCODONE/APAP 5/325 TABLET PO PRN ×2 (10:29→18:13)
[2017-02-04] MEDS: *HR* Heparin 5,000 UNIT/ML VIAL IVP PRN (11:23)
--- NOTE | 2017-02-04 12:41 | Cardiology Progress Note ---
Date of Encounter: 02/04/17 Time of Encounter: 12:40 Assessment and Plan (1) Pneumothorax, acute Current Visit: Yes Status: Acute Per Cardiology: Right chest tube in place with small air leak. Management per primary service. (2) Elevated troponin Current Visit: Yes Status: Acute Per Cardiology: Peak trop. 0.55 (with downward trend) in setting of hypoxia (O2 documented as 70s on EMS arrival), COPD exacerbation and acute pneumothorax. Demand ischemia vs. NSTEMI-- suspect demand ischemia. No Cardiac Rehab consult for now-- will re -evaluate need once LHC done. EKG unchanged from prior. Continue ASA, Statin, BB , ACEi. Will DC IV Hep gtt now. Reviewed and discussed with Dr. Ybarra, consider left heart catheterization during hospital stay once improves from acute pneumothorax-- most likely early next week if deemed clinically appropriate. Patient and family verbalized understanding and agreed with plan. Appears CP free-- other than R sided pain from CT site. (3) CAD (coronary artery disease) Current Visit: Yes Status: Chronic Per Cardiology: Known CAD from [facility] 08/2016-- 50% stenosis in the Mid LAD, 50% stenosis in the 1st Diagonal, 90% stenosis in the Left PDA-- unable to be attempted to be fixed at that time due coughing spells. Qualifiers: Coronary Disease-Associated Artery/Lesion type: [place] artery [place] vs. transplanted heart: [place] heart Associated angina: without angina Qualified Code(s): I25.10 - Atherosclerotic heart disease of [place] coronary artery without angina pectoris Discussion w patient/family: The assessment and plan as outlined above was discussed with the patient and/or family members who expressed understanding and agreement. All questions were answered. Thank you for involving us in the care of your patient. Please call with any questions. Subjective Principal diagnosis: Pneumothorax, Elevated Trop Interval history: Patient reports mild improvement in shortness of breath since admission. She reports right-sided chest soreness from chest tube site. She reports since her last catheterization in August 2016 she did follow-up with cardiology, however not aware of any planned intervention from that appointment. Objective Vital Signs, Last 4 Hours Temp Pulse Resp BP Pulse Ox 02/04/17 11:27 97.5 F L 67 18 126/77 93 02/04/17 11:10 97.5 F L 67 18 126/77 93 02/04/17 10:26 18 94 General: Conversant Cardiac: Reg Rate and Rhythm, Normal S1 and S2, No Murmur Lungs: Other (diminished to R lung base, CT drs D&I, no crepitus noted, small air leak noted in CT ) Neuro: Alert and responsive, No focal deficits noted Skin: No rashes noted on visualized skin Extremities: No Edema Results 02/04/17 05:17 02/04/17 05:17 Lab Results Laboratory Tests 02/02/17 02/02/17 02/02/17 06:15 06:15 06:15 WBC 18.8 H INR Creatinine Est GFR (Non-Af Amer) Troponin I 0.24 H* B-Natriuretic Peptide 18 02/03/17 02/03/17 02/03/17 04:43 13:03 14:40 WBC INR 1.1 Creatinine Est GFR (Non-Af Amer) Troponin I 0.55 H* 0.54 H* B-Natriuretic Peptide 02/03/17 02/04/17 02/04/17 18:33 05:17 05:17 WBC 12.2 H INR Creatinine 0.60 Est GFR (Non-Af Amer) > 60 Troponin I 0.46 H* B-Natriuretic Peptide ITS Impressions Chest X-Ray 02/02/17 06:01 IMPRESSION: Moderate right pneumothorax measuring 4 cm. Critical results were called by Dr. Wynn to Dr. Song in the ED on 02/02/2017 at 6:25 AM. D/ / Claus Wynn MD / Claus Wynn MD Interpreting Provider: Claus Wynn MD Chest X-Ray 02/02/17 06:48 IMPRESSION: 1. New small bore right pleural catheter in appropriate position, although there is no formed pigtail loop. There is resultant near resolution of right pneumothorax with suspicion for trace remnant pneumothorax. 2. Pulmonary vascular congestion and/or chronic interstitial change. D/ / Cole Simpson MD / Cole Simpson MD Interpreting Provider: Cole Simpson MD Drainage Catheter Insertion 02/03/17 00:00 IMPRESSION: Successful bedside exchange of a 8 [place] chest tube for a new 10 [place] locking loop drainage catheter for pneumothorax. D/ / Paolo Herrera MD / Paolo Herrera MD Interpreting Provider: Paolo Herrera MD Chest X-Ray 02/03/17 07:00 IMPRESSION: Increasing right pneumothorax, especially in the right lung base, with associated right middle and lower lobe atelectasis. No mediastinal shift is identified. The findings were sent to the Radiology Results Communication Center at 8:07 am on 02/03/2017to be communicated to a licensed caregiver. D/ / 02/03/2017 08:08:49 Krysta Contreras MD / [facility] Interpreting Provider: Krysta Contreras MD Chest X-Ray 02/03/17 11:28 IMPRESSION: 1. Stable positioning of a right chest tube which is mostly located outside the pleural space. Consider repositioning for more optimal placement. 2. Stable large right pneumothorax. 3. Emphysema. D/ / 02/03/2017 12:21:43 Lynne Ying MD / [facility] Interpreting Provider: Lynne Ying MD Chest X-Ray 02/03/17 12:07 IMPRESSION: 1. Interval replacement of the right pleural tube with significant interval improvement of the right pneumothorax, now small. 2. Re-expansion of the right middle and lower lobe with persistent atelectasis. D/ / 02/03/2017 12:40:51 Lynne Ying MD / [facility] Interpreting Provider: Lynne Ying MD Chest X-Ray 02/04/17 06:00 IMPRESSION: Stable chest. D/ / 02/04/2017 09:25:49 Yane Ferguson MD / [facility] Interpreting Provider: Yane Ferguson MD ECHO 08/2016: Impressions: LVEF 40%. Normal LV chamber size and wall thickness. Segmental left ventricular systolic dysfunction. Mild left ventricular diastolic dysfunction. Normal right ventricular structure and function. No evidence of PFO with agitated saline contrast. No evidence of pulmonary hypertension. No significant valvular dysfunction. Left Ventricular Wall Motion: Rest Echo Findings The apical anterior, mid anterior, apical septal, mid inferior septal and mid anterior septal valladares were hypokinetic. All other wall segments showed normal motion. [facility] 08/2016: Lesion Findings/Interventions * Left Main Coronary Artery The LMCA is angiographically free of disease. * Left Anterior Descending There is a 50% stenosis in the Mid LAD. There is a 50% stenosis in the 1st Diagonal. * Circumflex There is a 90% stenosis in the Left PDA. Minimal disease in the circumflex and OM. Tortuous. * Right Coronary Artery The RCA is angiographically free of significant disease. Active Medications Al Hydrox/Mg Hydrox/Simethicone (Maalox) 15 ml PO Q6HR PRN PRN Reason: Dyspepsia Stop: 08/04/17 09:40 Albuterol Sulfate (Proventil Neb) 2.5 mg IH [id number] PRN; Protocol PRN Reason: Shortness Of Breath/Wheezing Stop: 08/04/17 09:53 Last Admin: 02/03/17 08:35 Dose: 2.5 mg Albuterol/Ipratropium (Duoneb) 3 ml IH [id number] JOSEPH Stop: 08/05/17 16:01 Last Admin: 02/04/17 10:23 Dose: 3 ml Amitriptyline HCl (Elavil) 25 mg PO HS JOSEPH Stop: 08/05/17 21:01 Last Admin: 02/03/17 21:32 Dose: 25 mg Aspirin (Aspirin) 81 mg PO DAILY JOSEPH Stop: 08/05/17 09:01 Last Admin: 02/04/17 08:14 Dose: 81 mg Atorvastatin Calcium (Lipitor) 80 mg PO HS JOSEPH Stop: 08/04/17 21:01 Last Admin: 02/03/17 21:31 Dose: 80 mg Budesonide/Formoterol Fumarate (Symbicort) 2 puff IH BIDR [facility] PRN Reason: Protocol Stop: 08/04/17 10:01 Last Admin: 02/04/17 10:23 Dose: 2 puff Carvedilol (Coreg) 3.125 mg PO BIDWM JOSEPH PRN Reason: Protocol Stop: 08/04/17 17:01 Last Admin: 02/04/17 08:13 Dose: 3.125 mg Docusate Sodium (Colace) 100 mg PO BID PRN PRN Reason: Constipation Stop: 08/04/17 09:40 Estradiol (Estrace) 1 mg PO DAILY [facility] Stop: 08/05/17 09:01 Last Admin: 02/04/17 08:13 Dose: 1 mg Gabapentin (Neurontin) 300 mg PO TID [facility] Stop: 08/04/17 15:01 Last Admin: 02/04/17 08:14 Dose: 300 mg Heparin Sodium (Porcine) (Heparin) 2,900 unit 60 unit/kg (2900 unit) IVP Q6HR PRN PRN Reason: SEE COMMENTS Stop: 08/05/17 14:23 Heparin Sodium (Porcine) (Heparin) 1,500 unit 30 unit/kg (1500 unit) IVP Q6H PRN PRN Reason: SEE COMMENTS Stop: 08/05/17 14:23 Last Admin: 02/04/17 11:23 Dose: 1,500 unit Levofloxacin/Dextrose (Levaquin Premix 750mg/150 Ml) 750 mg in 150 mls @ 100 mls/hr IVPB DAILY [facility] PRN Reason: Protocol Stop: 08/04/17 10:01 Last Infusion: 02/04/17 10:00 Dose: Infused Heparin Sodium/Dextrose (Heparin 25,000 Unit/500 Ml D5w) 25,000 unit in 500 mls @ 11.736 mls/hr IVC .Q24H JOSEPH; 12 UNIT/KG/HR PRN Reason: Protocol Stop: 08/05/17 14:31 Last Titration: 02/04/17 11:00 Dose: 14 unit/kg/hr, 13.692 mls/hr Lisinopril (Zestril) 2.5 mg PO DAILY [facility] PRN Reason: Protocol Stop: 08/05/17 09:01 Last Admin: 02/04/17 08:13 Dose: 2.5 mg Morphine Sulfate (Morphine Sulfate) 2 mg IVP Q4HR PRN PRN Reason: Severe Pain (7-10) Stop: 08/04/17 09:40 Last Admin: 02/04/17 06:25 Dose: 2 mg Naloxone HCl (Narcan) 0.4 mg IVP Q2MIN PRN PRN Reason: Opioid Reversal Stop: 08/04/17 09:40 Nicotine (Nicoderm) 21 mg TD Q24H [facility]SE[facility] PRN Reason: Protocol Stop: 08/04/17 16:46 Last Admin: 02/03/17 15:49 Dose: 21 mg Oxycodone/Acetaminophen (Percocet 5/325) 1 each PO Q8HR PRN PRN Reason: Pain Stop: 08/04/17 15:06 Last Admin: 02/04/17 10:29 Dose: 1 each Prednisone (Prednisone) 40 mg PO DAILY [facility] Stop: 08/05/17 09:01 Last Admin: 02/04/17 08:13 Dose: 40 mg - Imaging and Cardiology Chest Xray: report reviewed Echo: report reviewed Cardiac cath: report reviewed - EKG Interpretation EKG results cardiology: other (SR on tele in the 70's no events noted) Consult Discharge Plan - Plan Referrals: Elias Martinez, COLOR MATCHER [Primary Care Provider] - (closed due to )
[2017-02-04] MEDS: Nicotine 21 MG PATCH.TD24 TD SCH (16:07)
[2017-02-04] MEDS: *HR* Heparin 5,000 UNIT/ML VIAL SQ SCH (17:18)
--- NOTE | 2017-02-04 18:27 | Pulmonology Progress Note ---
Date of Encounter: 02/04/17 Time of Encounter: 11:00 Assessment and Plan (1) Pneumothorax, acute Current Visit: Yes Status: Acute Patient 8 bolivian pleural catheter got kinked which led to reaccumulation of pneumothorax ,it was changed to 10 bolivian pigtail catheter , it is connected to water seal drainage and to suction, there is still some air-leak will continue to monitor. (2) Acute exacerbation of chronic obstructive airways disease Current Visit: No Status: Acute To continue the current regimen of bronchodilators, antibiotics and steroids. On discharge she should be going with albuterol inhaler, symbicort will need outpatient follow up 8 weeks will get outpatient PFT'S . (3) Tobacco abuse Current Visit: No Status: Chronic Patient is contemplating to stop smoking. Subjective Principal diagnosis: Pneumothorax, Elevated Trop Interval history: Patient presented with shortness of breadth came as COPD exacerbation but her CXR showed spontaneous pneumothorax had a 8 [place]ian pleural catheter initially there was near resolution of pneumothorax today morning CXR showed worsening of pneumothorax with lung collapse removed the dressing it looks like the catheter was kinked repositioned the catheter doesnt look it was working. IR was consulted did a wire exchange with 10 [place] pigtail catheter. Patient today still having some airleak , the chest tube is working well , patient has some chest discomfort in the chest tube site has some on and off generalized chest discomfort Cardiology was consulted patient might get left heart catheterization. Objective PUL Vital signs: Last Vital Signs Temp 97.9 F 02/04/17 16:37 Pulse 80 02/04/17 15:45 Resp 16 02/04/17 15:45 BP 107/69 02/04/17 15:45 Pulse Ox 98 02/04/17 15:45 Auscultation: right: diminished breath sounds (base ), bilateral: wheezes ( scattered wheezes) Results - Laboratory Findings CBC and BMP: 02/04/17 05:17 02/04/17 05:17 PT/INR, D-dimer PT 11.6 Seconds (9.4-12.1) 02/03/17 14:40 Abnormal lab findings: Abnormal lab results WBC 12.2 K/mcL (4.3-11.1) H 02/04/17 05:17 APTT 53.6 Seconds (26.0-36.0) H 02/04/17 10:53 Chloride 111 mEq/L (98-109) H 02/04/17 05:17 BUN 30 mg/dL (7-20) H 02/04/17 05:17 BUN/Creatinine Ratio 50 (6-26) H 02/04/17 05:17 Calcium 8.3 mg/dL (8.6-10.8) L 02/04/17 05:17 Troponin I 0.46 ng/mL (0-0.03) H* 02/03/17 18:33 Serum Total Protein 5.7 g/dL (6.0-8.3) L 02/03/17 04:43 Albumin 3.0 g/dL (3.5-5.0) L 02/03/17 04:43 Cholesterol 244 mg/dL (< 200) H 02/03/17 04:43 LDL Cholesterol, Calc 165 mg/dL (0-99) H 02/03/17 04:43 HDL Cholesterol 61 mg/dL (40-59) H 02/03/17 04:43 - Microbiology Findings Microbiology Findings: Microbiology, Last 48 Hours 02/03/17 15:12 Influenza Types A,B Antigen (VIRGIL) - Final Nasopharyngeal - Clinical Findings Intake & Output: Intake & Output 02/04/17 02/04/17 02/04/17 07:59 15:59 23:59 Intake Total 49 / 49 200 / 200 240 / 240 Output Total 0 / 0 43 / 43 Balance 49 / 49 157 / 157 240 / 240 Consult Discharge Plan - Plan Referrals: Elias Martinez, SENIOR ENLISTED ADVISOR [Primary Care Provider] - (closed due to )
[2017-02-05 03:02] LABS: Basophils % 0.2 %; Eosinophils # 0.1 K/mcL (0.0-0.6); Hematocrit 36.8 % (35.3-44.9); Hemoglobin 12.4 g/dL (11.5-15.4); Immature Granulocytes % 0.3 % (0-4); Lymphocytes # 3.4 K/mcL (0.6-4.6); Lymphocytes % 31.3 %; Mean Corpuscular HGB Conc 33.7 g/dL (31.6-35.5); Mean Corpuscular Hemoglobin 31.5 pg (28.0-33.3); Mean Corpuscular Volume 93.4 fL (83.0-100.0); Mean Platelet Volume 9.4 fL (9.4-12.4); Monocytes # 0.7 K/mcL (0.0-1.3); Monocytes % 6.4 %; Neutrophils # 6.7 K/mcL (1.6-8.9); Platelet Count 237 K/mcL (140-400); Red Blood Count 3.94 M/mcL (3.82-4.97); Red Cell Distribution Width 14.1 % (11.5-14.5); Segmented Neutrophils % 60.8 %
[2017-02-05 03:16] LABS: BUN/Creatinine Ratio 51 (6-26); Blood Urea Nitrogen 31 mg/dL (7-20); Calcium 8.6 mg/dL (8.6-10.8); Carbon Dioxide 24 mEq/L (19-29); Chloride 109 mEq/L (98-109); Glucose 92 mg/dL (70-99); Osmolality,Calculated 296 (280-300); Potassium 3.5 mEq/L (3.5-4.5); Sodium 140 mEq/L (136-145); eGFR For African Americans > 60 (> 60); eGFR For Non-African Americans > 60 (> 60)
[2017-02-05] MEDS: Ipratropium/Albuterol Neb 3 ML IH SCH ×4 (04:10→21:57)
[2017-02-05] MEDS: *HR* Heparin 5,000 UNIT/ML VIAL SQ SCH ×2 (06:04→16:39)
[2017-02-05] MEDS: *HR* Morphine 2 MG/ML SYRINGE IVP PRN ×3 (06:07→20:22)
--- NOTE | 2017-02-05 06:14 | Cardiology Progress Note ---
Date of Encounter: 02/05/17 Time of Encounter: 06:10 Assessment and Plan (1) Pneumothorax, acute Current Visit: Yes Status: Acute Per Cardiology: Right chest tube in place with small air leak. Management per primary service. (2) Elevated troponin Current Visit: Yes Status: Acute Per Cardiology: Peak trop. 0.55 (with downward trend) in setting of hypoxia (O2 documented as 70s on EMS arrival), COPD exacerbation and acute pneumothorax. Demand ischemia vs. NSTEMI-- suspect demand ischemia. No Cardiac Rehab consult for now-- will re -evaluate need once C done. EKG unchanged from prior. Continue ASA, Statin, BB , ACEi. Possible [facility] Monday. Patient agreeable to plan. All questions answered. Chest pain-free. (3) CAD (coronary artery disease) Current Visit: Yes Status: Chronic Per Cardiology: Known CAD from [facility] 08/2016-- 50% stenosis in the Mid LAD, 50% stenosis in the 1st Diagonal, 90% stenosis in the Left PDA-- unable to be attempted to be fixed at that time due coughing spells. Currently able to lay flat with no difficulties. Qualifiers: Coronary Disease-Associated Artery/Lesion type: [place] artery [place] vs. transplanted heart: [place] heart Associated angina: without angina Qualified Code(s): I25.10 - Atherosclerotic heart disease of [place] coronary artery without angina pectoris Discussion w patient/family: The assessment and plan as outlined above was discussed with the patient and/or family members who expressed understanding and agreement. All questions were answered. Thank you for involving us in the care of your patient. Please call with any questions. Subjective Principal diagnosis: Pneumothorax, Elevated Trop Interval history: Patient denies any chest pain. Reports mild right-sided chest soreness from chest tube insertion site with movement. She reports short of breath overall improved during hospital stay. Denies any palpitations. Objective Vital Signs, Last 4 Hours Temp Pulse Resp BP Pulse Ox 02/05/17 04:56 97.7 F 57 16 121/68 94 02/05/17 04:10 14 93 General: Conversant, No Apparent Distress Cardiac: Reg Rate and Rhythm, Normal S1 and S2, No Murmur Lungs: Normal Breath Sounds, No Wheeze, Rales, Rhonchi, Other (Diminished right base) Neuro: Alert and responsive, No focal deficits noted Skin: No rashes noted on visualized skin Extremities: No Edema Results 02/05/17 02:30 02/05/17 02:30 Lab Results Impressions Echocardiogram Limited Views 02/03/17 15:31 Impressions: Normal left atrial size. Normal right atrial size. Normal valvular structure and function in limited views. . Normal left ventricular size and systolic function, EF 55% Limited study Left Ventricular Wall Motion: Rest Echo Findings All wall segments showed normal motion. Findings: Chest X-Ray 02/04/17 06:00 IMPRESSION: Stable chest. D/ / 02/04/2017 09:25:49 Yane Ferguson MD / [facility] Interpreting Provider: Yane Ferguson MD Active Medications Al Hydrox/Mg Hydrox/Simethicone (Maalox) 15 ml PO Q6HR PRN PRN Reason: Dyspepsia Stop: 08/04/17 09:40 Albuterol Sulfate (Proventil Neb) 2.5 mg IH [id number] PRN; Protocol PRN Reason: Shortness Of Breath/Wheezing Stop: 08/04/17 09:53 Last Admin: 02/03/17 08:35 Dose: 2.5 mg Albuterol/Ipratropium (Duoneb) 3 ml IH [id number] JOSEPH Stop: 08/05/17 16:01 Last Admin: 02/05/17 04:10 Dose: 3 ml Amitriptyline HCl (Elavil) 25 mg PO HS JOSEPH Stop: 08/05/17 21:01 Last Admin: 02/04/17 20:58 Dose: 25 mg Aspirin (Aspirin) 81 mg PO DAILY [facility] Stop: 08/05/17 09:01 Last Admin: 02/04/17 08:14 Dose: 81 mg Atorvastatin Calcium (Lipitor) 80 mg PO HS JOSEPH Stop: 08/04/17 21:01 Last Admin: 02/04/17 20:57 Dose: 80 mg Budesonide/Formoterol Fumarate (Symbicort) 2 puff IH BIDR [facility] PRN Reason: Protocol Stop: 08/04/17 10:01 Last Admin: 02/04/17 22:39 Dose: 2 puff Carvedilol (Coreg) 3.125 mg PO BIDWM [facility] PRN Reason: Protocol Stop: 08/04/17 17:01 Last Admin: 02/04/17 16:19 Dose: 3.125 mg Docusate Sodium (Colace) 100 mg PO BID PRN PRN Reason: Constipation Stop: 08/04/17 09:40 Estradiol (Estrace) 1 mg PO DAILY [facility] Stop: 08/05/17 09:01 Last Admin: 02/04/17 08:13 Dose: 1 mg Gabapentin (Neurontin) 300 mg PO TID [facility] Stop: 08/04/17 15:01 Last Admin: 02/04/17 20:57 Dose: 300 mg Heparin Sodium (Porcine) (Heparin) 5,000 unit SQ Q12HCO [facility] Stop: 08/06/17 18:01 Last Admin: 02/05/17 06:04 Dose: 5,000 unit Levofloxacin/Dextrose (Levaquin Premix 750mg/150 Ml) 750 mg in 150 mls @ 100 mls/hr IVPB DAILY [facility] PRN Reason: Protocol Stop: 08/04/17 10:01 Last Infusion: 02/04/17 10:00 Dose: Infused Lisinopril (Zestril) 2.5 mg PO DAILY [facility] PRN Reason: Protocol Stop: 08/05/17 09:01 Last Admin: 02/04/17 08:13 Dose: 2.5 mg Morphine Sulfate (Morphine Sulfate) 2 mg IVP Q4HR PRN PRN Reason: Severe Pain (7-10) Stop: 08/04/17 09:40 Last Admin: 02/05/17 06:07 Dose: 2 mg Naloxone HCl (Narcan) 0.4 mg IVP Q2MIN PRN PRN Reason: Opioid Reversal Stop: 08/04/17 09:40 Nicotine (Nicoderm) 21 mg TD Q24H [facility] PRN Reason: Protocol Stop: 08/04/17 16:46 Last Admin: 02/04/17 16:07 Dose: 21 mg Oxycodone/Acetaminophen (Percocet 5/325) 1 each PO Q8HR PRN PRN Reason: Pain Stop: 08/04/17 15:06 Last Admin: 02/04/17 18:13 Dose: 1 each Prednisone (Prednisone) 40 mg PO DAILY [facility] Stop: 08/05/17 09:01 Last Admin: 02/04/17 08:13 Dose: 40 mg - Imaging and Cardiology Echo: report reviewed - EKG Interpretation EKG results cardiology: other (Telemetry reviewed with average heart rate 74 the past 12 hours, currently in the 70s, sinus rhythm, no evidence noted) Consult Discharge Plan - Plan Referrals: Elias Martinez CNP [Primary Care Provider] - (closed due to )
[2017-02-05] MEDS: Aspirin 81 MG TAB.CHEW PO SCH (07:47)
[2017-02-05] MEDS: Levofloxacin 750 MG/150 ML 750 MG/150 ML BAG IVPB SCH (07:47)
[2017-02-05] MEDS: Gabapentin 300 MG CAPSULE PO SCH ×3 (07:47→20:22)
[2017-02-05] MEDS: predniSONE 20 MG TABLET PO SCH (07:47)
--- NOTE | 2017-02-05 08:27 | Pulmonology Progress Note ---
Date of Encounter: 02/05/17 Time of Encounter: 08:15 Assessment and Plan (1) Pneumothorax, acute Current Visit: Yes Status: Acute Patient today's CXR showed soem worsening apical pneumothorax , the chest tube functioning and it connected to suction will get CT chest W/O contrast for better delineate the pneumothorax whether it is loculated will help us confirm the position of the current chest tube and need for second chest tube , if new chest tube needed will be better put under CT guidance with IR consult at the moment she has stable gas exchange will continue to monitor. (2) Acute exacerbation of chronic obstructive airways disease Current Visit: No Status: Acute To continue the current regimen of bronchodilators, antibiotics and steroids. On discharge she should be going with albuterol inhaler, symbicort will need outpatient follow up 8 weeks will get outpatient PFT'S . (3) Tobacco abuse Current Visit: No Status: Chronic Patient is contemplating to stop smoking. Subjective Principal diagnosis: Pneumothorax, Elevated Trop Interval history: Patient presented with shortness of breadth came as COPD exacerbation but her CXR showed spontaneous pneumothorax had a 8 icelandic pleural catheter initially there was near resolution of pneumothorax today morning CXR showed worsening of pneumothorax with lung collapse removed the dressing it looks like the catheter was kinked repositioned the catheter doesnt look it was working. IR was consulted did a wire exchange with 10 icelandic pigtail catheter. Patient today still having some airleak , the chest tube is working well , patient has some chest discomfort in the chest tube site has some on and off generalized chest discomfort Cardiology was consulted patient might get left heart catheterization. 02/05 Patient says she doesnt have any respiratory distress denies any chest pain .CXR today showed some worsening apical pneumothorax. Objective PUL Vital signs: Last Vital Signs Temp 97.3 F L 02/05/17 08:10 Pulse 65 02/05/17 08:10 Resp 16 02/05/17 08:10 BP 138/79 02/05/17 08:10 Pulse Ox 94 02/05/17 08:10 Auscultation: right: diminished breath sounds (basilar air entry diminished ), bilateral: wheezes (mild scattered wheezes ) Results - Laboratory Findings CBC and BMP: 02/05/17 02:30 02/05/17 02:30 PT/INR, D-dimer PT 11.6 Seconds (9.4-12.1) 02/03/17 14:40 Abnormal lab findings: Abnormal lab results APTT 53.6 Seconds (26.0-36.0) H 02/04/17 10:53 BUN 31 mg/dL (7-20) H 02/05/17 02:30 BUN/Creatinine Ratio 51 (6-26) H 02/05/17 02:30 POC Glucose 111 (58-89) H 02/04/17 11:31 Troponin I 0.46 ng/mL (0-0.03) H* 02/03/17 18:33 Serum Total Protein 5.7 g/dL (6.0-8.3) L 02/03/17 04:43 Albumin 3.0 g/dL (3.5-5.0) L 02/03/17 04:43 Cholesterol 244 mg/dL (< 200) H 02/03/17 04:43 LDL Cholesterol, Calc 165 mg/dL (0-99) H 02/03/17 04:43 HDL Cholesterol 61 mg/dL (40-59) H 02/03/17 04:43 - Microbiology Findings Microbiology Findings: Microbiology, Last 48 Hours 02/03/17 15:12 Influenza Types A,B Antigen (VIRGIL) - Final Nasopharyngeal - Clinical Findings Intake & Output: Intake & Output 02/04/17 02/05/17 02/05/17 23:59 07:59 15:59 Intake Total 240 / 240 Output Total 0 / 0 311 / 311 Balance 240 / 240 -311 / -311 Weight 50.2 kg Consult Discharge Plan - Plan Referrals: Elias Martinez, DIRECTOR OF OCCUPATIONAL HEALTH [Primary Care Provider] - (closed due to )
--- NOTE | 2017-02-05 08:51 | Internal Med Progress Note ---
<Orville Medeiros - Last Filed: 02/05/17 11:48> Date of Encounter: 02/05/17 Time of Encounter: 08:50 - Assessment and plan (1) Pneumothorax, acute Current Visit: Yes Status: Acute Assessment and plan: CXR this morning demonstrated worsening apical PTX Pulmonology consulted and managing chest tube, recommend CT without contrast today Per Pulm, she may need another CT guided chest tube insertion if she does not improve tomorrow Recheck CXR in AM to monitor for resolution (2) Acute exacerbation of chronic obstructive airways disease Current Visit: No Status: Acute Assessment and plan: Continue breathing treatments, supplemental oxygen and steroids Currently on Levaquin 750 mg (3) Elevated troponin Current Visit: Yes Status: Acute Assessment and plan: She did have initial trop of 0.24 which increased to 0.55, 0.46 and she is no longer having chest pain Cardiology consulted and plan on LHC once she recovers more from acute PTX, heparin ggt stopped Patient did have LHC this August which showed 90% stenosis of left PDA but could not get stent due to coughing spells during procedure (4) CAD (coronary artery disease) Current Visit: Yes Status: Chronic Assessment and plan: Chest pain resolved from yesterday Continue home ASA, Lipitor, BB, ACEi Qualifiers: Coronary Disease-Associated Artery/Lesion type: [place] artery [place] vs. transplanted heart: [place] heart Associated angina: without angina Qualified Code(s): I25.10 - Atherosclerotic heart disease of [place] coronary artery without angina pectoris (5) Hypertension Current Visit: No Status: Chronic Assessment and plan: Blood pressures well controlled since admission Continue home Coreg, Lisinopril Qualifiers: Hypertension type: essential hypertension Qualified Code(s): I10 - Essential (primary) hypertension (6) Tobacco abuse Current Visit: No Status: Chronic Assessment and plan: She claims she recently quit 2 weeks ago but was previous 1 PPD smoker for 40 years Smoking cessation was counseled to patient Continue nicotine patch (7) DVT prophylaxis Current Visit: No Status: Acute Assessment and plan: Heparin 5000 units BID - Subjective Interval history: Pt seen and examined. She has no complaints of difficulty breathing or chest pain this morning and tolerated her breakfast without any issues with nausea, vomiting. She still has moderate pain in her back near the chest tube insertion. - Constitutional Vitals: Temp Pulse Resp BP Pulse Ox 97.3 F L 65 16 138/79 94 11/12/17 08:10 02/05/17 08:10 02/05/17 08:10 02/05/17 08:10 02/05/17 08:10 General appearance: Present: cooperative, pleasant, no acute distress, answers questions appropriately - Head Head exam: Present: atraumatic, normocephalic - Eye Eye exam: Present: PERRL, conjuntiva pink, sclera anicteric - Neck Neck exam general surgery: Present: supple, trachea midline. Absent: lymphadenopathy - Respiratory Respiratory exam: Present: decreased breath sounds (in right base). Absent: accessory muscle use, rales, rhonchi, wheezes - Cardiovascular Cardiovascular exam: Present: RRR, +S1, +S2. Absent: diastolic murmur, gallop, rubs, systolic murmur - GI/Abdominal GI/Abdominal exam: Present: normal bowel sounds, soft, no peritoneal signs. Absent: distended, tenderness - Extremities Exam Extremities exam: Present: warm, radial pulses palpable and symmetrical. Absent : calf tenderness, cyanotic, pedal edema - Neurological Exam Neurological exam: Present: alert, no focal deficits. Absent: facial droop, speech deficit - Skin Skin exam: Present: dry, intact Internal Medicine: Result - Labs CBC & Chem 7: 02/05/17 02:30 02/05/17 02:30 Labs: Short CBC 02/05/17 Range/Units 02:30 WBC 11.0 (4.3-11.1) K/mcL Hgb 12.4 (11.5-15.4) g/dL Hct 36.8 (35.3-44.9) % Plt Count 237 (140-400) K/mcL Neutrophils # 6.7 (1.6-8.9) K/mcL BMP 02/05/17 02:30 Sodium 140 Potassium 3.5 Chloride 109 Carbon Dioxide 24 BUN 31 H Creatinine 0.61 Glucose 92 Calcium 8.6 - ABG Interpretation ABG results: PT/INR, D-dimer PT 11.6 Seconds (9.4-12.1) 02/03/17 14:40 - Impressions Impressions Echocardiogram Limited Views 02/03/17 15:31 Impressions: Normal left atrial size. Normal right atrial size. Normal valvular structure and function in limited views. . Normal left ventricular size and systolic function, EF 55% Limited study Left Ventricular Wall Motion: Rest Echo Findings All wall segments showed normal motion. Findings: Chest X-Ray 02/04/17 06:00 IMPRESSION: Stable chest. D/ / 02/04/2017 09:25:49 Yane Ferguson MD / dori Interpreting Provider: Yane Ferguson MD Chest X-Ray 02/05/17 06:00 IMPRESSION: 1. Stable positioning of the right chest tube with a slightly larger apical right pneumothorax. 2. Consolidation in the right lung base is stable. D/ / Demetrius Morrell MD / Demetrius Morrell MD Interpreting Provider: Demetrius Morrell MD Consult Discharge Plan - Plan Referrals: Elias Martinez, CREW TRUCK DRIVER [Primary Care Provider] - (closed due to ) <Venkata Shannon - Last Filed: 02/05/17 14:38> Date of Encounter: 02/05/17 - Constitutional Vitals: Temp Pulse Resp BP Pulse Ox 98.4 F 73 16 129/81 94 02/05/17 09:51 02/05/17 11:28 02/05/17 10:46 02/05/17 09:51 02/05/17 10:46 Internal Medicine: Result - Labs CBC & Chem 7: 02/05/17 02:30 02/05/17 02:30 Labs: Short CBC 02/05/17 Range/Units 02:30 WBC 11.0 (4.3-11.1) K/mcL Hgb 12.4 (11.5-15.4) g/dL Hct 36.8 (35.3-44.9) % Plt Count 237 (140-400) K/mcL Neutrophils # 6.7 (1.6-8.9) K/mcL BMP 02/05/17 02:30 Sodium 140 Potassium 3.5 Chloride 109 Carbon Dioxide 24 BUN 31 H Creatinine 0.61 Glucose 92 Calcium 8.6 - ABG Interpretation ABG results: PT/INR, D-dimer PT 11.6 Seconds (9.4-12.1) 02/03/17 14:40 - Impressions Impressions Echocardiogram Limited Views 02/03/17 15:31 Impressions: Normal left atrial size. Normal right atrial size. Normal valvular structure and function in limited views. . Normal left ventricular size and systolic function, EF 55% Limited study Left Ventricular Wall Motion: Rest Echo Findings All wall segments showed normal motion. Findings: Chest X-Ray 02/05/17 06:00 IMPRESSION: 1. Stable positioning of the right chest tube with a slightly larger apical right pneumothorax. 2. Consolidation in the right lung base is stable. D/ / Demetrius Morrell MD / Demetrius Morrell MD Interpreting Provider: Demetrius Morrell MD Chest CT 02/05/17 09:30 IMPRESSION: 1. Right hydropneumothorax which appears relatively stable comparing the current counseling center director image to prior plain film studies. 2. Chest tube is appropriately positioned. 3. Complete atelectasis of the right lower lobe, etiology uncertain. D/ / Andrew Esteban MD / Andrew Esteban MD Interpreting Provider: Andrew Esteban MD - Attending Attestation I conducted a face to face diagnostic evaluation of this patient and my medical decision-making was reviewed with the Resident Physician, Dr Orville Medeiros. I agree with the documented findings, disposition and treatment plan as described except to the extent set forth below: Patient reports no shortness of breath. Mild tenderness at chest tube insertion site. There are diminished breath sounds on the right. Heart is regular. Vital signs are stable. Continue with chest tube to suction. Follow-up with pulmonology. CT of the chest was personally reviewed and shows right lower lobe collapse and right [place]-pneumothorax. Chest tube reported as an adequate position.
[2017-02-05] MEDS: Budesonide/Formoterol 80/4.5 MDI IH SCH ×2 (10:44→21:57)
[2017-02-05] MEDS: Nicotine 21 MG PATCH.TD24 TD SCH (16:39)
[2017-02-06 03:30] LABS: Basophils % 0.4 %; Eosinophils # 0.2 K/mcL (0.0-0.6); Eosinophils % 2.1 %; Hematocrit 35.3 % (35.3-44.9); Hemoglobin 12.1 g/dL (11.5-15.4); Immature Granulocytes % 0.3 % (0-4); Lymphocytes # 3.6 K/mcL (0.6-4.6); Lymphocytes % 31.8 %; Mean Corpuscular HGB Conc 34.3 g/dL (31.6-35.5); Mean Corpuscular Hemoglobin 31.8 pg (28.0-33.3); Mean Corpuscular Volume 92.7 fL (83.0-100.0); Mean Platelet Volume 9.5 fL (9.4-12.4); Monocytes # 0.7 K/mcL (0.0-1.3); Monocytes % 6.4 %; Neutrophils # 6.7 K/mcL (1.6-8.9); Platelet Count 250 K/mcL (140-400); Red Blood Count 3.81 M/mcL (3.82-4.97)
[2017-02-06] MEDS: Ipratropium/Albuterol Neb 3 ML IH SCH ×4 (03:32→22:14)
[2017-02-06 03:43] LABS: BUN/Creatinine Ratio 49 (6-26); Blood Urea Nitrogen 34 mg/dL (7-20); Calcium 8.5 mg/dL (8.6-10.8); Carbon Dioxide 24 mEq/L (19-29); Chloride 108 mEq/L (98-109); Glucose 103 mg/dL (70-99); Osmolality,Calculated 300 (280-300); Potassium 3.5 mEq/L (3.5-4.5); Sodium 141 mEq/L (136-145); eGFR For African Americans > 60 (> 60); eGFR For Non-African Americans > 60 (> 60)
[2017-02-06] MEDS: *HR* Heparin 5,000 UNIT/ML VIAL SQ SCH (05:21)
[2017-02-06] MEDS: *HR* Morphine 2 MG/ML SYRINGE IVP PRN ×2 (05:22→19:57)
[2017-02-06] MEDS: Aspirin 81 MG TAB.CHEW PO SCH (08:12)
[2017-02-06] MEDS: predniSONE 20 MG TABLET PO SCH (08:12)
[2017-02-06] MEDS: Levofloxacin 750 MG/150 ML 750 MG/150 ML BAG IVPB SCH (08:13)
[2017-02-06] MEDS: Gabapentin 300 MG CAPSULE PO SCH ×3 (08:13→19:57)
[2017-02-06] MEDS: Nicotine 21 MG PATCH.TD24 TD SCH (08:18)
--- NOTE | 2017-02-06 09:05 | Pulmonology Progress Note ---
Date of Encounter: 02/06/17 Time of Encounter: 09:03 Assessment and Plan (1) Acute respiratory failure Current Visit: No Status: Acute this is a combination of factors including PTX and AECOPD. Plan for [place] around 96% with acute PTX Qualifiers: Respiratory failure complication: hypoxia Qualified Code(s): J96.01 - Acute respiratory failure with hypoxia (2) COPD exacerbation Current Visit: Yes Status: Acute this is imprvoing con ABx and steroids x2 week taper. cont inhaled ICS/LABA. Outpatient f/u with Primary Inbound Ingredient Logistics Specialist Dr Rios. (3) Pneumothorax on right Current Visit: Yes Status: Acute This is a recurrent Secondary Spontaneous PTX. Imaigng reveals persistent PTX swith right lung collapse. REcommen formal Consultation with CT surgery given high risk for recurrence. (4) Elevated troponin Current Visit: Yes Status: Acute his is being managed by Cardiology Plan for [facility] which will clearly have implications for timing of possible thoracic surgery. (5) Tobacco abuse Current Visit: No Status: Chronic tobacco abuse counseling provided. Subjective Principal diagnosis: Pneumothorax, Elevated Trop Interval history: Denies complaints at present. She has noticed decreased dyspnea since admission. She is wearing a nicotine patch which has helped with cravings. Objective PUL Vital signs: Last Vital Signs Temp 98.4 F 02/06/17 07:12 Pulse 72 02/06/17 08:28 Resp 17 02/06/17 07:12 BP 124/73 02/06/17 07:12 Pulse Ox 92 02/06/17 07:12 General appearance: no acute distress Effort: normal Auscultation: left: rhonchi, right: diminished breath sounds Cardiovascular: regular rate and rhythm normal mental status, non-focal exam Results - Laboratory Findings CBC and BMP: 02/06/17 02:52 02/06/17 02:52 PT/INR, D-dimer PT 11.6 Seconds (9.4-12.1) 02/03/17 14:40 Abnormal lab findings: Abnormal lab results WBC 11.4 K/mcL (4.3-11.1) H 02/06/17 02:52 RBC 3.81 M/mcL (3.82-4.97) L 02/06/17 02:52 APTT 53.6 Seconds (26.0-36.0) H 02/04/17 10:53 BUN 34 mg/dL (7-20) H 02/06/17 02:52 BUN/Creatinine Ratio 49 (6-26) H 02/06/17 02:52 Glucose 103 mg/dL (70-99) H 02/06/17 02:52 POC Glucose 111 (58-89) H 02/04/17 11:31 Calcium 8.5 mg/dL (8.6-10.8) L 02/06/17 02:52 Troponin I 0.46 ng/mL (0-0.03) H* 02/03/17 18:33 Serum Total Protein 5.7 g/dL (6.0-8.3) L 02/03/17 04:43 Albumin 3.0 g/dL (3.5-5.0) L 02/03/17 04:43 Cholesterol 244 mg/dL (< 200) H 02/03/17 04:43 LDL Cholesterol, Calc 165 mg/dL (0-99) H 02/03/17 04:43 HDL Cholesterol 61 mg/dL (40-59) H 02/03/17 04:43 - Diagnostic Findings CT scan - chest: image reviewed - Clinical Findings Intake & Output: Intake & Output 02/05/17 02/06/17 02/06/17 23:59 07:59 15:59 Intake Total 240 / 240 60 / 60 Output Total 0 / 0 4 / 4 / Balance 240 / 240 -4 / -4 38 / 38 Weight 50.5 kg Consult Discharge Plan - Plan Referrals: Elias Martinez, CANCER PROGRAM COORDINATOR [Primary Care Provider] - (closed due to )
--- NOTE | 2017-02-06 10:06 | Internal Med Progress Note ---
<WaldemarOrville - Last Filed: 02/06/17 13:17> Date of Encounter: 02/06/17 Time of Encounter: 10:04 - Assessment and plan (1) Pneumothorax, acute Current Visit: Yes Status: Acute Assessment and plan: CXR this morning demonstrated persistent apical PTX Pulmonology consulted and managing chest tube, recommend consulting cardiothoracic surgeon for definitive treatment as she is at high risk for recurrence Per Pulm, will keep chest tube under wall suction for tonight Recheck CXR in AM to monitor for resolution She remains hemodynamically stable and breathing well on room air (2) Acute exacerbation of chronic obstructive airways disease Current Visit: No Status: Acute Assessment and plan: Continue breathing treatments, supplemental oxygen and steroids Currently on Levaquin 750 mg (3) Elevated troponin Current Visit: Yes Status: Acute Assessment and plan: She did have initial trop of 0.24 which increased to 0.55, 0.46 and she is no longer having chest pain Cardiology consulted and plan on LHC once she recovers more from acute PTX, continue medical management for now Patient did have LHC this August which showed 90% stenosis of left PDA but could not get stent due to coughing spells during procedure (4) CAD (coronary artery disease) Current Visit: Yes Status: Chronic Assessment and plan: Chest pain free this morning Continue home ASA, Lipitor, BB, ACEi Qualifiers: Coronary Disease-Associated Artery/Lesion type: [place] artery [place] vs. transplanted heart: [place] heart Associated angina: without angina Qualified Code(s): I25.10 - Atherosclerotic heart disease of [place] coronary artery without angina pectoris (5) Hypertension Current Visit: No Status: Chronic Assessment and plan: Blood pressures well controlled since admission Continue home Coreg, Lisinopril Qualifiers: Hypertension type: essential hypertension Qualified Code(s): I10 - Essential (primary) hypertension (6) Tobacco abuse Current Visit: No Status: Chronic Assessment and plan: She claims she recently quit 2 weeks ago but was previous 1 PPD smoker for 40 years Smoking cessation was counseled to patient Continue nicotine patch (7) DVT prophylaxis Current Visit: No Status: Acute Assessment and plan: Heparin 5000 units BID - Subjective Interval history: Pt seen and examined. She remains comfortable with breathing and did have some mild substernal chest pain last night but not currently having any. She denies any nausea, vomiting, diarrhea, fevers. - Constitutional Vitals: Temp Pulse Resp BP Pulse Ox 98.4 F 72 17 124/73 92 02/06/17 07:12 02/06/17 08:28 02/06/17 07:12 02/06/17 07:12 02/06/17 07:12 General appearance: Present: cooperative, pleasant, no acute distress, answers questions appropriately - Head Head exam: Present: atraumatic, normocephalic - Eye Eye exam: Present: PERRL, conjuntiva pink, sclera anicteric - Neck Neck exam general surgery: Present: supple, trachea midline. Absent: lymphadenopathy - Respiratory Respiratory exam: Present: decreased breath sounds (right), rhonchi. Absent: accessory muscle use, rales, wheezes - Cardiovascular Cardiovascular exam: Present: RRR, +S1, +S2. Absent: diastolic murmur, gallop, rubs, systolic murmur - GI/Abdominal GI/Abdominal exam: Present: normal bowel sounds, soft, no peritoneal signs. Absent: distended, tenderness - Extremities Exam Extremities exam: Present: warm, radial pulses palpable and symmetrical. Absent : calf tenderness, cyanotic, pedal edema - Neurological Exam Neurological exam: Present: alert, no focal deficits. Absent: facial droop, speech deficit - Skin Skin exam: Present: dry, intact Internal Medicine: Result - Labs CBC & Chem 7: 02/06/17 02:52 02/06/17 02:52 Labs: Short CBC 02/06/17 Range/Units 02:52 WBC 11.4 H (4.3-11.1) K/mcL Hgb 12.1 (11.5-15.4) g/dL Hct 35.3 (35.3-44.9) % Plt Count 250 (140-400) K/mcL Neutrophils # 6.7 (1.6-8.9) K/mcL BMP 02/06/17 02:52 Sodium 141 Potassium 3.5 Chloride 108 Carbon Dioxide 24 BUN 34 H Creatinine 0.69 Glucose 103 H Calcium 8.5 L - ABG Interpretation ABG results: PT/INR, D-dimer PT 11.6 Seconds (9.4-12.1) 02/03/17 14:40 - Impressions Impressions Chest X-Ray 02/03/17 07:00 IMPRESSION: Increasing right pneumothorax, especially in the right lung base, with associated right middle and lower lobe atelectasis. No mediastinal shift is identified. The findings were sent to the Radiology Results Communication Center at 8:07 am on 02/03/2017to be communicated to a licensed caregiver. D/ / 02/03/2017 08:08:49 Krysta Contreras MD / florecita Interpreting Provider: Krysta Contreras MD Chest CT 02/05/17 09:30 IMPRESSION: 1. Right hydropneumothorax which appears relatively stable comparing the current placement assistant image to prior plain film studies. 2. Chest tube is appropriately positioned. 3. Complete atelectasis of the right lower lobe, etiology uncertain. D/ / Andrew Esteban MD / Andrew Esteban MD Interpreting Provider: Andrew Esteban MD Chest X-Ray 02/06/17 06:00 IMPRESSION: Right apical pneumothorax measures 7 mm. Right chest tube remains present. D/ / Levon Chávez MD / Levon Chávez MD Interpreting Provider: Levon Chávez MD Consult Discharge Plan - Plan Referrals: Elias Martinez CNP [Primary Care Provider] - (WALK IN CLINIC THEY MAKE NO APPOINTMENTS) Reilly De Luna CNP [Advanced Practice Nurse] - (OFFICE WILL CALL PATIENT AT HOME WITH A FOLLOW UP APPOINTMENT) <Venkata Shannon - Last Filed: 02/06/17 18:20> Date of Encounter: 02/06/17 - Constitutional Vitals: Temp Pulse Resp BP Pulse Ox 98.0 F 97 20 131/61 93 02/06/17 15:40 02/06/17 16:59 02/06/17 16:59 02/06/17 15:40 02/06/17 16:59 Internal Medicine: Result - Labs CBC & Chem 7: 02/06/17 02:52 02/06/17 02:52 Labs: Short CBC 02/06/17 Range/Units 02:52 WBC 11.4 H (4.3-11.1) K/mcL Hgb 12.1 (11.5-15.4) g/dL Hct 35.3 (35.3-44.9) % Plt Count 250 (140-400) K/mcL Neutrophils # 6.7 (1.6-8.9) K/mcL BMP 02/06/17 02:52 Sodium 141 Potassium 3.5 Chloride 108 Carbon Dioxide 24 BUN 34 H Creatinine 0.69 Glucose 103 H Calcium 8.5 L - ABG Interpretation ABG results: PT/INR, D-dimer PT 11.6 Seconds (9.4-12.1) 02/03/17 14:40 - Impressions Impressions Chest X-Ray 02/03/17 07:00 IMPRESSION: Increasing right pneumothorax, especially in the right lung base, with associated right middle and lower lobe atelectasis. No mediastinal shift is identified. The findings were sent to the Radiology Results Communication Center at 8:07 am on 02/03/2017to be communicated to a licensed caregiver. D/ / 02/03/2017 08:08:49 Krysta Contreras MD / florecita Interpreting Provider: Krysta Contreras MD Chest X-Ray 02/06/17 06:00 IMPRESSION: Right apical pneumothorax measures 7 mm. Right chest tube remains present. D/ / Levon Chávez MD / Levon Chávez MD Interpreting Provider: Levon Chávez MD - Attending Attestation I conducted a face to face diagnostic evaluation of this patient and my medical decision-making was reviewed with the Resident Physician, Dr Orville Medeiros. I agree with the documented findings, disposition and treatment plan as described except to the extent set forth below: Decreased breath sounds at the right base, otherwise clear. Normal symmetrical chest expansions. No subcutaneous emphysema palpated.
--- NOTE | 2017-02-06 10:30 | Cardiology Progress Note ---
Date of Encounter: 02/06/17 Time of Encounter: 08:30 Assessment and Plan (1) Pneumothorax, acute Current Visit: Yes Status: Acute Per Cardiology: Right chest tube in place with small air leak. Management per primary service. Discussed with Pulm and recs to for possible Bronchoscopy and consult CT surgery. Will hold on cath for now since bronchoscopy and CT srugery eval for more definitive therapy for Penuemothorax. For any potential procedures, patient will be considered a higher risk from a cardiac standpoint. Can consider cath prior DC or as outpatient based on hospital course. Patient verbalized understanding and agreed with plan. (2) Elevated troponin Current Visit: Yes Status: Acute Per Cardiology: Peak trop. 0.55 (with downward trend) in setting of hypoxia (O2 documented as 70s on EMS arrival), COPD exacerbation and acute pneumothorax. Demand ischemia vs. NSTEMI-- suspect demand ischemia. No Cardiac Rehab consult for now-- will re -evaluate need once C done. EKG unchanged from prior. Continue ASA, Statin, BB , ACEi. (3) CAD (coronary artery disease) Current Visit: Yes Status: Chronic Per Cardiology: Known CAD from [facility] 08/2016-- 50% stenosis in the Mid LAD, 50% stenosis in the 1st Diagonal, 90% stenosis in the Left PDA-- unable to be attempted to be fixed at that time due coughing spells. Currently able to lay flat with no difficulties. Qualifiers: Coronary Disease-Associated Artery/Lesion type: [place] artery [place] vs. transplanted heart: [place] heart Associated angina: without angina Qualified Code(s): I25.10 - Atherosclerotic heart disease of [place] coronary artery without angina pectoris Discussion w patient/family: The assessment and plan as outlined above was discussed with the patient who expressed understanding and agreement. All questions were answered. Thank you for involving us in the care of your patient. Please call with any questions. Subjective Principal diagnosis: Pneumothorax, Elevated Trop Interval history: Patient denies any concerns over night. Denies any chest pain. Reports breathing stable. Objective Vital Signs, Last 4 Hours Temp Pulse Resp BP Pulse Ox 02/06/17 08:28 72 02/06/17 07:12 98.4 F 80 17 124/73 92 General: Conversant HEENT: Atraumatic Cardiac: Reg Rate and Rhythm, Normal S1 and S2, No Murmur Lungs: Other (diminished to R base) Neuro: Alert and responsive, No focal deficits noted Extremities: No Edema Results 02/06/17 02:52 02/06/17 02:52 Lab Results Active Medications Al Hydrox/Mg Hydrox/Simethicone (Maalox) 15 ml PO Q6HR PRN PRN Reason: Dyspepsia Stop: 08/04/17 09:40 Albuterol Sulfate (Proventil Neb) 2.5 mg IH [id number] PRN; Protocol PRN Reason: Shortness Of Breath/Wheezing Stop: 08/04/17 09:53 Last Admin: 02/03/17 08:35 Dose: 2.5 mg Albuterol/Ipratropium (Duoneb) 3 ml IH [id number] [facility] Stop: 08/05/17 16:01 Last Admin: 02/06/17 12:46 Dose: Not Given Amitriptyline HCl (Elavil) 25 mg PO HS [facility] Stop: 08/05/17 21:01 Last Admin: 02/05/17 20:22 Dose: 25 mg Aspirin (Aspirin) 81 mg PO DAILY [facility] Stop: 08/05/17 09:01 Last Admin: 02/06/17 08:12 Dose: 81 mg Atorvastatin Calcium (Lipitor) 80 mg PO HS [facility] Stop: 08/04/17 21:01 Last Admin: 02/05/17 20:22 Dose: 80 mg Budesonide/Formoterol Fumarate (Symbicort) 2 puff IH BIDR [facility] PRN Reason: Protocol Stop: 08/04/17 10:01 Last Admin: 02/06/17 12:46 Dose: Not Given Carvedilol (Coreg) 3.125 mg PO BIDWM JOSEPH PRN Reason: Protocol Stop: 08/04/17 17:01 Last Admin: 02/06/17 08:13 Dose: 3.125 mg Docusate Sodium (Colace) 100 mg PO BID PRN PRN Reason: Constipation Stop: 08/04/17 09:40 Estradiol (Estrace) 1 mg PO DAILY [facility] Stop: 08/05/17 09:01 Last Admin: 02/06/17 08:13 Dose: 1 mg Gabapentin (Neurontin) 300 mg PO TID [facility] Stop: 08/04/17 15:01 Last Admin: 02/06/17 08:13 Dose: 300 mg Heparin Sodium (Porcine) (Heparin) 5,000 unit SQ Q12HCO [facility] Stop: 08/06/17 18:01 Last Admin: 02/06/17 05:21 Dose: 5,000 unit Levofloxacin/Dextrose (Levaquin Premix 750mg/150 Ml) 750 mg in 150 mls @ 100 mls/hr IVPB DAILY [facility]SEPH PRN Reason: Protocol Stop: 08/04/17 10:01 Last Infusion: 02/06/17 10:05 Dose: Infused Lisinopril (Zestril) 2.5 mg PO DAILY [facility] PRN Reason: Protocol Stop: 08/05/17 09:01 Last Admin: 02/06/17 08:13 Dose: 2.5 mg Morphine Sulfate (Morphine Sulfate) 2 mg IVP Q4HR PRN PRN Reason: Severe Pain (7-10) Stop: 08/04/17 09:40 Last Admin: 02/06/17 05:22 Dose: 2 mg Naloxone HCl (Narcan) 0.4 mg IVP Q2MIN PRN PRN Reason: Opioid Reversal Stop: 08/04/17 09:40 Nicotine (Nicoderm) 21 mg TD Q24H JOSEPH PRN Reason: Protocol Stop: 08/04/17 16:46 Last Admin: 02/06/17 08:18 Dose: 21 mg Oxycodone/Acetaminophen (Percocet 5/325) 1 each PO Q8HR PRN PRN Reason: Pain Stop: 08/04/17 15:06 Last Admin: 02/04/17 18:13 Dose: 1 each Prednisone (Prednisone) 40 mg PO DAILY [facility] Stop: 08/05/17 09:01 Last Admin: 02/06/17 08:12 Dose: 40 mg - EKG Interpretation EKG results cardiology: other (Sr on tele) Consult Discharge Plan - Plan Referrals: Elias Martinez CNP [Primary Care Provider] - (WALK IN CLINIC THEY MAKE NO APPOINTMENTS) Reilly De Luna CNP [Advanced Practice Nurse] - (OFFICE WILL CALL PATIENT AT HOME WITH A FOLLOW UP APPOINTMENT)
[2017-02-06] MEDS: Budesonide/Formoterol 80/4.5 MDI IH SCH ×2 (12:46→22:14)
--- NOTE | 2017-02-06 14:26 | Cardiothoracic Consult Note ---
Date of Encounter: 02/06/17 Time of Encounter: 14:24 Assessment and Plan (1) Pneumothorax on right Current Visit: Yes Status: Acute The patient was admitted to [facility] with a 2 week history of shortness of breath and dyspnea on exertion which worsened on the day of admission. The patient was found to have a right pneumothorax which constituted her second right spontaneous pneumothorax within 5 months. She has [address] which have not completely resolved the pneumothorax. A chest CT performed yesterday reveals right lower lobe collapse. The patient will undergo a bronchoscopy tomorrow with possible removal of mucous plugging in the right lower lobe bronchus. The patient has then been recommended for a right thoracotomy with apical bleb resection and mechanical pleurodesis to help prevent subsequent spontaneous pneumothoraces. I discussed the procedure, benefits, alternatives, and risks (including bleeding, infection, prolonged air leak, postoperative respiratory insufficiency/ventilator dependence, and ) with the patient and her mother. The patient agrees to the operation, stating that she "has to do something" because she does not wish to experience a recurrent right spontaneous pneumothorax and its complications. Tentatively the patient is scheduled for bronchoscopy tomorrow and she will then undergo her right thoracotomy with bleb resection and mechanical pleurodesis on Wednesday, February 08, 2017. The assessment and plan as outlined above was discussed with the patient and/or family members who expressed understanding and agreement. All questions were answered. - History of Present Illness Consult date: 02/06/17 Requesting physician: Narayan Hadley Consult reason: Recurrent right spontaneous pneumothorax. Chief complaint: Shortness of breath, dyspnea on exertion. History of present illness: Ms. Kirkland is a 56 year old hypertensive lady with hypercholesterolemia, known CAD, and known COPD. The patient experienced a right spontaneous pneumothorax in August 2016 which resolve spontaneously. During the last 2 weeks, the patient has complained of progressive shortness of breath and dyspnea on exertion. On Monday, February 04, 2017 the patient had profound shortness of breath and dyspnea exertion while preparing for work. She states that she was unable to "catch her breath" and drove herself to her mother's home. She was then transported to [facility] for further care. In the emergency department the patient was noted to have a right spontaneous pneumothorax and underwent chest tube insertion. This resulted in incomplete reexpansion of the right lung and a second chest tube was inserted. A chest CT performed yesterday showed right lower lobe collapse as well as a residual pneumothorax. I've been asked to evaluate the patient for possible operative intervention for recurrent right spontaneous pneumothorax. Past Med Surg Social Fam HX - Past Medical History Medical history: asthma, cardiomyopathy, CHF, COPD, coronary artery disease, hyperlipidemia, hypertension Psychiatric history: no psych history - Past Surgical History Surgical History: orthopedic, other (Right wrist fracture ORIF), other ( Tonsillectomy, Tubal ligation) - Social History Smoking Status: Former smoker Packs per day: 1ppd X 40 yrs Smokeless Tobacco Status: No Alcohol use: none Drug use: none Occupational status: employed Current living situation: Home - Independent Activity Level: Independent ambulation Recent Out of Country Travel Within the Last 8 Weeks: No Exposure or Possible Exposure to Illness During Travel: No Medications and Allergies Albuterol Sulfate [Albuterol Inhaler] 2 puff IH Q6HR PRN 09/14/16 [History] Amitriptyline [Elavil] 25 mg PO DAILY 09/14/16 [History] Estradiol [Estrace] 1 mg PO DAILY 09/14/16 [History] Gabapentin [Neurontin] 300 mg PO TID 09/14/16 [History] Progesterone,Micronized [Progesterone] 200 mg PO DAILY 09/14/16 [History] Aspirin 81 mg PO DAILY #60 tab.chew 09/17/16 [Rx] Atorvastatin [Lipitor] 80 mg PO HS #60 tablet 09/17/16 [Rx] Carvedilol [Coreg] 3.125 mg PO BIDWM #60 tablet 09/17/16 [Rx] Lisinopril [Zestril] 2.5 mg PO DAILY #60 tablet 09/17/16 [Rx] levoFLOXacin [Levaquin] 500 mg PO DAILY 02/02/17 [History] 3 Allergy/AdvReac Type Severity Reaction Status Date / Time No Known Allergies Allergy Verified 09/13/16 18:14 All Systems Review: A 10-system review of systems was performed and is negative for pertinent findings except as documented above in the HPI. Physical Examination Vital Signs, Last 4 Hours Pulse Resp BP Pulse Ox 02/06/17 10:37 77 18 132/60 91 General: Conversant, No Apparent Distress HEENT: Atraumatic, Normocephaly, Trachea midline Neck: No JVD, Normal carotid pulses Cardiac: Reg Rate and Rhythm, Normal S1 and S2, No Murmur Lungs: Decreased breath sounds, Other (Wheezes and rhonchi bilaterally.) Neuro: Alert and responsive, No focal deficits noted, Motor nerves intact, Sensory nerves intact Vascular: Normal capillary refill Abdomen: Soft, Non-tender Skin: No rashes noted on visualized skin Musculoskeletal: No Chest Wall Tenderness Extremities: No Clubbing, No Cyanosis, No Edema Results 02/06/17 02:52 02/06/17 02:52 Lab Results, Last 24 hours 02/06/17 02/06/17 02:52 02:52 WBC 11.4 H Hgb 12.1 Hct 35.3 Plt Count 250 Sodium 141 Potassium 3.5 Chloride 108 Carbon Dioxide 24 BUN 34 H Creatinine 0.69 Glucose 103 H Calcium 8.5 L - Imaging Chest Xray: image reviewed (Small right apical pneumothorax. Right lower lobe atelectasis/infiltrate.) Consult Discharge Plan - Plan Referrals: Elias Martinez CNP [Primary Care Provider] - (WALK IN CLINIC THEY MAKE NO APPOINTMENTS) Reilly De Luna CNP [Advanced Practice Nurse] - (OFFICE WILL CALL PATIENT AT HOME WITH A FOLLOW UP APPOINTMENT)
[2017-02-06] MEDS: *HR* OxyCODONE/APAP 5/325 TABLET PO PRN (14:45)
--- NOTE | 2017-02-06 15:12 | Event Note ---
Date of Encounter: 02/06/17 Time of Encounter: 15:09 I had the pleasure of discussing this case with the primary emergency department nurse and a cardiothoracic surgeon. As outlined in previous notes is a patient with emphysema with recurrent spontaneous pneumothorax and follow pulmonary perspective would recommend definitive therapy with mechanical pleurodesis this is also the impression of the cardiothoracic surgeon Dr. Wood. She is being planned for this procedure lae in the week. Incidentally it is noted that her CT scan findings are concerning for possible mucous plug with collapse of right lower lobe for which a bronchoscopy is recommended. The procedure , risks, benefits, complications, and expected outcomes have been reviewed. Benefits of diagnosis, as well as risks to include bleeding, infection, pneumothorax which may require surgical intervention, and in a small population. The patient is aware that sometimes test is nondiagnostic. I also discussed with the patient in the context of troponin elevation (likely demand ischemia per cardiology service) she will be at increased risk of cardiovascular complications. Discussed with patient and agrees to proceed. Tentatively this is being scheduled for tomorrow morning please keep nothing by mouth at midnight. I have updated the primary medicine service with plan along with the bedside nurse
--- NOTE | 2017-02-06 15:34 | Event Note ---
Date of Encounter: 02/06/17 Time of Encounter: 15:30 - Cardiology Event Note CT surgery note and pulm note reviewed. "Tentatively the patient is scheduled for bronchoscopy tomorrow and she will then undergo her right thoracotomy with bleb resection and mechanical pleurodesis on Monday, February 08, 2017". Discussed with Dr. Posada, considered a moderate to high risk from cardiac standpoint for planned procedures. No further recs for LHC prior to DC unless clinically changes. Of note EF improved from 40% to 55%. Will sign off, re- consult PRN, f/u scheduled. Will re-evaluate for potential LHC as outpatient if deemed clinically appropriate. Patient agrees with plan.
[2017-02-07] MEDS: Mag Hydrox/Al Hydrox/Simeth 30 ML UDC PO PRN (03:15)
[2017-02-07] MEDS: *HR* OxyCODONE/APAP 5/325 TABLET PO PRN ×3 (03:15→22:08)
[2017-02-07] MEDS: Ipratropium/Albuterol Neb 3 ML IH SCH ×4 (04:07→21:32)
[2017-02-07] MEDS ORDERED: *HR* Midazolam HCl 5 MG/5 ML VIAL IVP ONE (08:02)
[2017-02-07] MEDS ORDERED: *HR* FentaNYL (PF) 100 MCG/2 ML VIAL IVP ONE (08:02)
[2017-02-07] MEDS ORDERED: Tetracaine/Benzocaine/Butamben 200MG/SPRAY (100SPY/BOT) MM ONE (08:02)
[2017-02-07] MEDS ORDERED: *HR* EPINEPHrine 1 MG/10 ML SYRINGE INTRATRACH PRN (08:02)
--- NOTE | 2017-02-07 08:02 | Pre-Sedation Evaluation ---
Pre-sedation evaluation - Pre-sedation checklist Date of procedure: 02/03/17 Procedure: Bronchoscopy Recent Vitals: Last Vital Signs Temp 98.4 F 02/07/17 07:42 Pulse 68 02/07/17 07:42 Resp 12 02/07/17 07:42 BP 94/64 02/07/17 07:42 Pulse Ox 95 02/07/17 07:42 H&P (including ROS) documented in medical record: Yes Previous reaction to sedatives/anesthetics: No Dietary Status: NPO after Midnight Dentition: No loose teeth or bridges Possible difficult airway: No ASA Classification *see protocol: CLASS III-Severe systemic disease Plan of Care: Pt appropriate candidate for procedure/moderate/conscious sedation , Risks/benefits of procedure/sedation discussed w/ patient/family
[2017-02-07] MEDS ORDERED: Ringers Solution, Lactated 1,000 ML IVC SCH (08:15)
--- NOTE | 2017-02-07 08:31 | Cardiothoracic Progress Note ---
Date of Encounter: 02/07/17 Time of Encounter: 08:29 - Assessment and plan (1) Pneumothorax on right Current Visit: Yes Status: Acute The patient remained relatively stable overnight. She has no respiratory complaints this morning. She will undergo bronchoscopy later this morning and is scheduled for a right thoracotomy with apical bleb resection and mechanical pleurodesis tomorrow. The assessment and plan as outlined above was discussed with the patient and/or family members who expressed understanding and agreement. All questions were answered. - Subjective Interval history: The patient is resting comfortably in her hospital bed. She has no respiratory complaints. Vital Signs, Last 4 Hours Temp Pulse Resp BP Pulse Ox 02/07/17 07:42 98.4 F 68 12 94/64 95 02/07/17 07:31 64 16 94/54 95 02/07/17 07:26 64 Oxgyen Flow Rate Oxygen Flow Rate (LPM) 3 Clinical Data, last 8 Hours Output, Chest Tube Drainage 4 Amount [Right Mid-Axillary Chest #1] Weight 02/05/17 02/06/17 02/07/17 23:59 23:59 23:59 Weight 50.2 kg 50.5 kg 51.7 kg - Physical Examination General: Conversant, No Apparent Distress Neck: No JVD, Normal carotid pulses Cardiac: Reg Rate and Rhythm, Normal S1 and S2, No Murmur Incision: No signs of infection, Dry/intact dressing Chest tubes: Minimal drainage, Air leak (Intermittent.) Lungs: Normal Breath Sounds, No Wheeze, Rales, Rhonchi Neuro: Alert and responsive, No focal deficits noted Vascular: Normal capillary refill Extremities: No Clubbing, No Cyanosis, No Edema - Labs 02/06/17 02:52 02/06/17 02:52 - Imaging Chest Xray: image reviewed (Small right apical pneumothorax, decreased in size from yesterday's x-ray. Improved aeration and right base.) Consult Discharge Plan - Plan Referrals: Elias Martinez CNP [Primary Care Provider] - (WALK IN CLINIC THEY MAKE NO APPOINTMENTS) Reilly De Luna CNP [Advanced Practice Nurse] - (OFFICE WILL CALL PATIENT AT HOME WITH A FOLLOW UP APPOINTMENT)
[2017-02-07] MEDS ORDERED: *HR* FentaNYL (PF) 100 MCG/2 ML VIAL ONE (09:06)
--- NOTE | 2017-02-07 09:06 | Anesthesia Evaluation PreOp ---
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[employer] History: Denies Any Significant HX Other Medical History: Denies Any Significant HX Anesthesia History: No Prior Anesthetic Complications, Past Anesthesia (wrist pinning) Alcohol Use: none Drug use: none Medications and Allergies Albuterol Sulfate [Albuterol Inhaler] 2 puff IH Q6HR PRN 09/14/16 [History] Amitriptyline [Elavil] 25 mg PO DAILY 09/14/16 [History] Estradiol [Estrace] 1 mg PO DAILY 09/14/16 [History] Gabapentin [Neurontin] 300 mg PO TID 09/14/16 [History] Progesterone,Micronized [Progesterone] 200 mg PO DAILY 09/14/16 [History] Aspirin 81 mg PO DAILY #60 tab.chew 09/17/16 [Rx] Atorvastatin [Lipitor] 80 mg PO HS #60 tablet 09/17/16 [Rx] Carvedilol [Coreg] 3.125 mg PO BIDWM #60 tablet 09/17/16 [Rx] Lisinopril [Zestril] 2.5 mg PO DAILY #60 tablet 09/17/16 [Rx] levoFLOXacin [Levaquin] 500 mg PO DAILY 02/02/17 [History] 3 Allergy/AdvReac Type Severity Reaction Status Date / Time No Known Allergies Allergy Verified 09/13/16 18:14 - Meds/Allergy Pre-op Review Medications Reviewed: Yes Allergies Reviewed: Yes Beta Blockers on Current Med List: Yes If Beta Blockers taken, Date/Time (Last Dose taken): 02-06-17 16:56 coreg Anesthesia Results - Labs 02/06/17 02:52 02/06/17 02:52 - Imaging EKG: report reviewed, image reviewed (SB; baseline artifact) Additional studies: TTE: Impressions: Normal left atrial size. Normal right atrial size. Normal valvular structure and function in limited views. . Normal left ventricular size and systolic function, EF 55% Limited study Anesthesia Exam Last Vital Signs Temp 98.2 F 02/07/17 08:45 Pulse 57 02/07/17 08:45 Resp 14 02/07/17 08:45 BP 105/58 02/07/17 08:45 Pulse Ox 90 02/07/17 08:45 Weight: 52 kg NPO (# of Hours): > 8 hrs - HEENT Pupil (Motor): Pupils equal, EOMI Mallampati: II Teeth: Normal Oral Opening: Greater than 3 - [employer] WORK[employer] LOC: Oriented [employer] WORK[employer] Motor: Normal RUE, Normal LUE, Normal RLE, Normal LLE, Normal Face - Cardiac Rhythm: Regular Murmur: None - Pulmonary Breath Sounds: bilateral Clear Respiratory Effort: Symmetrical Anesthesia Assess/Plan ASA Score: 4 Modified [place] Scale for Level of Consciousness: Cooperative, oriented, and tranquil Anesthetic Plan: General, Precautions (keep chest tube on suction during procedure) Monitoring Plan: Standard Monitors Recovery Plan: PACU
[2017-02-07] MEDS ORDERED: Albuterol 2.5 MG/3 ML NEBULIZER IH ONE (09:47)
[2017-02-07] MEDS ORDERED: Ondansetron 4 MG/2 ML VIAL IM ONE (10:10)
[2017-02-07] MEDS ORDERED: *HR* Propofol 200 MG/20 ML VIAL IVP ONE (10:10)
[2017-02-07] MEDS ORDERED: Lidocaine -MPF 2% 5 ML VIAL INFILT ONE (10:10)
[2017-02-07] MEDS ORDERED: Lidocaine -MPF 4% 5 ML AMPUL INFILT ONE (10:10)
[2017-02-07] MEDS ORDERED: *HR* Succinylcholine 200 MG/10 ML VIAL IVP ONE (10:10)
--- NOTE | 2017-02-07 10:17 | Anesthesia Evaluation Post Op ---
Date of Encounter: 02/07/17 Time of Encounter: 10:16 - Vital Signs Vital Signs: Last Vital Signs Temp 97.0 F L 02/07/17 10:07 Pulse 80 02/07/17 10:07 Resp 20 02/07/17 10:07 BP 99/63 02/07/17 10:07 Pulse Ox 92 02/07/17 10:07 - Lungs Lungs: Clear Ascult./Percussion - Airway Airway: Non-obstructed - Cardiovascular Regular Rate - Mental Status Mental Status: Alert & Oriented, Answers Appropriately - Pain Pain Scale: 2 - Nausea Vomiting Nausea Vomiting: Not Present - Hydration Hydration: NPO - Discharge PostOp Status: Transfer Patient to floor
[2017-02-07] MEDS: predniSONE 20 MG TABLET PO SCH (10:52)
[2017-02-07] MEDS: levoFLOXacin 750 MG TABLET PO SCH (10:52)
[2017-02-07] MEDS: Aspirin 81 MG TAB.CHEW PO SCH (10:52)
[2017-02-07] MEDS: Gabapentin 300 MG CAPSULE PO SCH ×3 (10:52→19:50)
[2017-02-07] MEDS: Budesonide/Formoterol 80/4.5 MDI IH SCH ×2 (10:53→21:32)
[2017-02-07 14:58] LABS: Appearance of Body Fluid Cloudy (Clear); Volume of Body Fluid 17 mL
[2017-02-07] MEDS: Nicotine 21 MG PATCH.TD24 TD SCH (16:41)
--- NOTE | 2017-02-07 18:52 | Internal Med Progress Note ---
Date of Encounter: 02/07/17 Time of Encounter: 11:00 - Assessment and plan (1) DVT prophylaxis Current Visit: No Status: Acute Assessment and plan: Heparin 5000 units BID (2) CAD (coronary artery disease) Current Visit: Yes Status: Chronic Assessment and plan: Chest pain free this morning Continue home ASA, Lipitor, BB, ACEi Qualifiers: Coronary Disease-Associated Artery/Lesion type: [place] artery [place] vs. transplanted heart: [place] heart Associated angina: without angina Qualified Code(s): I25.10 - Atherosclerotic heart disease of [place] coronary artery without angina pectoris (3) Hypertension Current Visit: No Status: Chronic Assessment and plan: Blood pressures well controlled since admission Continue home Coreg, Lisinopril Qualifiers: Hypertension type: essential hypertension Qualified Code(s): I10 - Essential (primary) hypertension (4) Pneumothorax on right Current Visit: Yes Status: Acute Assessment and plan: Continue with chest tube to suction. I appreciate cardiothoracic surgery input. Plan for decortication by cardiothoracic surgery tomorrow. - Subjective Interval history: She reports no shortness of breath at rest, no chest pain. Denies cough. She continues to have a chest tube connected to suction. - Constitutional Vitals: Temp Pulse Resp BP Pulse Ox 98.2 F 94 16 107/65 93 02/07/17 16:44 02/07/17 16:44 02/07/17 16:44 02/07/17 17:27 02/07/17 17:27 General appearance: Present: cooperative, pleasant, no acute distress, answers questions appropriately - Respiratory Respiratory exam: Present: decreased breath sounds (Decreased breath sounds at right base), CTAB. Absent: accessory muscle use, rales, rhonchi, wheezes - Cardiovascular Cardiovascular exam: Present: RRR, +S1, +S2. Absent: diastolic murmur, gallop, rubs, systolic murmur - GI/Abdominal GI/Abdominal exam: Present: normal bowel sounds, soft, no peritoneal signs. Absent: distended, tenderness Internal Medicine: Result - Labs CBC & Chem 7: 02/06/17 02:52 02/06/17 02:52 - ABG Interpretation ABG results: PT/INR, D-dimer PT 11.6 Seconds (9.4-12.1) 02/03/17 14:40 - Impressions Impressions Chest X-Ray 02/04/17 06:00 IMPRESSION: Stable chest. D/ / 02/04/2017 09:25:49 Yane Ferguson MD / dori Interpreting Provider: Yane Ferguson MD Chest X-Ray 02/07/17 06:00 IMPRESSION: Stable right hemithorax pigtail catheter placement. Minimal right apical pneumothorax. D/ / 02/07/2017 07:45:07 Bib Nguyen MD / sabra Interpreting Provider: Bib Nguyen MD Consult Discharge Plan - Plan Referrals: Elias Martinez CNP [Primary Care Provider] - (WALK IN CLINIC THEY MAKE NO APPOINTMENTS) Reilly De Luna [employer] [Advanced Practice Nurse] - (OFFICE WILL CALL PATIENT AT HOME WITH A FOLLOW UP APPOINTMENT)
[2017-02-08] MEDS: Ipratropium/Albuterol Neb 3 ML IH SCH ×4 (03:55→21:18)
[2017-02-08 06:22] LABS: Basophils % 0.1 %; Eosinophils # 0.2 K/mcL (0.0-0.6); Eosinophils % 1.2 %; Hematocrit 35.8 % (35.3-44.9); Hemoglobin 11.8 g/dL (11.5-15.4); Immature Granulocytes % 0.4 % (0-4); Lymphocytes # 3.1 K/mcL (0.6-4.6); Lymphocytes % 22.1 %; Mean Corpuscular Hemoglobin 31.4 pg (28.0-33.3); Mean Corpuscular Volume 95.2 fL (83.0-100.0); Mean Platelet Volume 9.1 fL (9.4-12.4); Monocytes # 0.8 K/mcL (0.0-1.3); Monocytes % 5.8 %; Neutrophils # 9.8 K/mcL (1.6-8.9); Platelet Count 295 K/mcL (140-400); Red Blood Count 3.76 M/mcL (3.82-4.97); Red Cell Distribution Width 14.4 % (11.5-14.5); Segmented Neutrophils % 70.4 %
[2017-02-08 06:40] LABS: BUN/Creatinine Ratio 39 (6-26); Blood Urea Nitrogen 24 mg/dL (7-20); Calcium 8.8 mg/dL (8.6-10.8); Carbon Dioxide 28 mEq/L (19-29); Chloride 107 mEq/L (98-109); Glucose 105 mg/dL (70-99); Magnesium 1.9 mg/dL (1.6-2.6); Osmolality,Calculated 298 (280-300); Potassium 3.7 mEq/L (3.5-4.5); Sodium 142 mEq/L (136-145); eGFR For African Americans > 60 (> 60); eGFR For Non-African Americans > 60 (> 60)
[2017-02-08] MEDS ORDERED: *HR* Rocuronium Bromide 50 MG/5 ML VIAL ONE (06:48)
[2017-02-08] MEDS ORDERED: Dexamethasone 4 MG/ML VIAL ONE (06:48)
[2017-02-08] MEDS ORDERED: *HR* Phenylephrine 10 MG/ML VIAL ONE ×2 (06:48)
[2017-02-08] MEDS ORDERED: Ondansetron 4 MG/2 ML VIAL ONE (06:48)
[2017-02-08] MEDS ORDERED: *HR* Propofol 200 MG/20 ML VIAL IVP ONE (06:50)
[2017-02-08] MEDS ORDERED: *HR* Midazolam HCl 5 MG/5 ML VIAL IVP ONE (06:50)
[2017-02-08] MEDS ORDERED: *HR* FentaNYL (PF) 250 MCG/5 ML VIAL ONE (06:50)
[2017-02-08] MEDS ORDERED: Heparin 1,000 UNITS/500 mL NS 500 ML ONE (06:55)
--- NOTE | 2017-02-08 07:00 | Anesthesia Progress Note ---
Date of Encounter: 02/08/17 Time of Encounter: 06:59 Anesthesia Note - Note Note: 02/08/17 06:59 The patient had a bronchoscopy yesterday. H&P has no interval changes since that time. Presenting for right thoracotomy today.
[2017-02-08] MEDS ORDERED: ceFAZolin 2,000 MG in Water for inj. (sterile) 20 ML IVP ONE (07:45)
[2017-02-08] MEDS ORDERED: Morphine Sulfate/PF 10mg/10mL 10 MG, Bupivacaine-MPF 0.25% 125 ML in 0.9 % Sodium Chlor... EP SCH (09:00)
[2017-02-08] MEDS ORDERED: *HR* Promethazine 25 MG/ML VIAL IVP PRN ×2 (09:05→09:35)
[2017-02-08] MEDS ORDERED: *HR* Nalbuphine 20 MG/ML AMPUL IVP PRN (09:07)
[2017-02-08] MEDS ORDERED: Ketorolac 30 MG/ML VIAL IVP PRN (09:17)
[2017-02-08] MEDS ORDERED: Ketorolac 15 MG/ML VIAL IVP PRN (09:18)
[2017-02-08] MEDS ORDERED: Ketorolac 30 MG/ML VIAL IVP ONE (09:35)
[2017-02-08] MEDS ORDERED: *HR* Labetalol 20 MG/4 ML SYRINGE IVP PRN (09:35)
--- NOTE | 2017-02-08 09:35 | Operative Note ---
Date of procedure: 02/08/17 Pre-op diagnosis: Recurrent right spontaneous pneumothorax. Post-op diagnosis: same Procedure: 1. Right posterior lateral thoracotomy. 2. Left lower lobe bleb resection. 3. Mechanical pleurodesis. Implants: None. Complications: None. Anesthesia: JENNIFERA Surgeon: Supriya Wood Estimated blood loss (cc): 10 Specimen: Right lower lobe bleb. Condition: stable Disposition: floor Procedure in Detail: INDICATIONS FOR OPERATION: The patient was admitted to [facility] with a 2 week history of shortness of breath and dyspnea on exertion which worsened on the day of admission. The patient was found to have a right pneumothorax which constituted her second right spontaneous pneumothorax within 5 months. She has [address] which have not completely resolved the pneumothorax. A chest CT performed yesterday reveals right lower lobe collapse. The patient will undergo a bronchoscopy tomorrow with possible removal of mucous plugging in the right lower lobe bronchus. The patient has then been recommended for a right thoracotomy with apical bleb resection and mechanical pleurodesis to help prevent subsequent spontaneous pneumothoraces. I discussed the procedure, benefits, alternatives, and risks (including bleeding, infection, prolonged air leak, postoperative respiratory insufficiency/ventilator dependence, and ) with the patient and her mother. The patient agrees to the operation, stating that she "has to do something" because she does not wish to experience a recurrent right spontaneous pneumothorax and its complications. A chest CT showed complete collapse of the right lower lobe and she underwent bronchoscopy with removal of a large mucous plug. The patient will now undergo definitive treatment for the recurrent spontaneous pneumothorax. FINDINGS AT OPERATION: The patient had extensive adhesions between the right upper lobe and the apex. Additionally, she had adhesions between the right middle lobe and the anterior chest wall and a few adhesions between the right lower lobe and the posterior chest wall. Blebs were noted in the left lower lobe; however, the adhesions to the right upper lobe were not taken down since the right upper lobe was densely adherent to the apex. DESCRIPTION OF OPERATION: After obtaining informed consent from the patient, she was taken to the operative with satisfactory general endotracheal anesthetic was induced. A double-lumen endotracheal tube was inserted as were other appropriate monitoring lines. The patient was then turned to the left lateral decubitus position and her right lateral chest was prepped and draped in a sterile fashion. A standard posterolateral thoracotomy incision was then made to the skin and subtenon's tissue. The latissimus dorsi muscle group was divided and the serratus anterior muscle group was reflected medially. The fifth intercostal space was identified and opened. Upon opening the chest and general exploration was performed. There were multiple adhesions between all lung lobes and the chest wall. The right upper lobe had extensive adhesions to the apex and these were not taken down. The right middle lobe was densely adherent to the anterior chest wall while the right lower lobe had the fewest adhesions to the chest wall. Blebs were noted in the posterior portion of the right lower lobe. A HERMILA 55 stapling device was then used to remove a portion of the right lower lobe which contained the blebs. No other blebs were noted. A vigorous mechanical pleurodesis was then performed on the chest wall using a Ray-Graeme sponge. Two or 2 [place] chest tubes were placed, one anteriorly and one posteriorly. The ribs were reapproximated using #1 Vicryl suture and the serratus anterior muscle group, latissimus dorsi muscle, subcutaneous tissue, and skin edges were reapproximated using running Vicryl sutures. Sterile dressings were applied. The patient was transferred to the postanesthesia care unit in satisfactory postoperative condition. There were no intraoperative complications, and the isthmic, needle, and sponge count were correct at end of operation.
[2017-02-08] MEDS: *HR* HYDROmorphone (PF) 1 MG/ML SYRINGE IVP PRN ×7 (09:40→16:08)
[2017-02-08] MEDS ORDERED: Ringers Solution, Lactated 1,000 ML IVC SCH (09:45)
[2017-02-08] MEDS ORDERED: Ketamine *HR* 500 MG/10 ML MDV ONE (10:37)
[2017-02-08] MEDS ORDERED: Bupivacaine-MPF 0.25% 10 ML VIAL ONE (10:41)
--- NOTE | 2017-02-08 10:46 | Anesthesia Evaluation Post Op ---
Date of Encounter: 02/08/17 Time of Encounter: 10:44 - Vital Signs Vital Signs: Selected Entries 02/08/17 10:00 02/08/17 10:10 Temperature 97.2 F L Pulse Rate 60 Respiratory Rate 26 Blood Pressure 175/95 O2 Sat by Pulse Oximetry 97 Oxygen Flow Rate (LPM) 6 - Lungs Lungs: Clear Ascult./Percussion - Airway Airway: Non-obstructed - Cardiovascular Regular Rate - Mental Status Mental Status: Alert & Oriented, Answers Appropriately - Pain Pain Scale: 9 (patient has had 30mg Toradol, 2 mg Dilaudid. Epidural solution slow getting to PACU. Epidural started 30min+ after arrival. Given 50mg Ketamine , and gets relief) Pain Scale used: Numeric (1 - 10) - Nausea Vomiting Nausea Vomiting: Not Present - Hydration Hydration: NPO, Ice chips - Discharge PostOp Status: Transfer Patient to floor
[2017-02-08] MEDS: Budesonide/Formoterol 80/4.5 MDI IH SCH ×2 (12:03→21:18)
[2017-02-08] MEDS: 0.9 % Sodium Chloride w KCl 20 MEQ/1,000 ML MLS IVC SCH (12:34)
[2017-02-08] MEDS: levoFLOXacin 750 MG TABLET PO SCH (12:36)
[2017-02-08] MEDS: Aspirin 81 MG TAB.CHEW PO SCH (12:36)
[2017-02-08] MEDS: Gabapentin 300 MG CAPSULE PO SCH ×3 (12:37→19:45)
[2017-02-08] MEDS: predniSONE 20 MG TABLET PO SCH (12:37)
[2017-02-08] MEDS: *HR* OxyCODONE/APAP 5/325 TABLET PO PRN ×2 (12:43→18:58)
[2017-02-08] MEDS: Ketorolac 30 MG/ML VIAL IVP SCH ×2 (15:34→23:21)
[2017-02-08] MEDS: ceFAZolin 2,000 MG in Water for inj. (sterile) 20 ML IVP SCH ×2 (15:57→23:21)
[2017-02-08] MEDS: Nicotine 21 MG PATCH.TD24 TD SCH (15:58)
[2017-02-08] MEDS ORDERED: CeFAZolin Premix DUPLEX 2,000 MG/50 ML BAG IVPB SCH (16:00)
--- NOTE | 2017-02-08 17:08 | Pulmonology Progress Note ---
Date of Encounter: 02/08/17 Time of Encounter: 17:06 Assessment and Plan (1) Acute respiratory failure Current Visit: No Status: Acute IMpression: 1. Recurrent Secondary Spontaneous PTx POD 0 s/p Right Thoracotomy with Pleurodesis 2. CAP 3. AECOPD 4. Mucous Plugging 5. Tobacco Abuse 6. CAD with NSTEMI Recs: -Continue to wean FiO2 to keep saturation greater than 88% to 92% -To give incentive spirometry and out of bed to chair as tolerated. Pain control to prevent splinting - Chest Tube management at the discretion of cardiothoracic surgery - Continue aggressive bronchopulmonary toileting -Continue respiratory fluoroquinolone to complete 7 day course -Steroid taper x 2 weeks -Cont Scheduled bronchodilators - Smoking cessation encouraged -DVT prophylaxis -Outpatient Cardiology F/u Qualifiers: Respiratory failure complication: hypoxia Qualified Code(s): J96.01 - Acute respiratory failure with hypoxia (2) COPD exacerbation Current Visit: Yes Status: Acute (3) Pneumothorax on right Current Visit: Yes Status: Acute This is a recurrent Secondary Spontaneous PTX. Imaigng reveals persistent PTX swith right lung collapse. REcommen formal Consultation with CT surgery given high risk for recurrence. (4) Tobacco abuse Current Visit: No Status: Chronic (5) Elevated troponin Current Visit: Yes Status: Acute (6) Mucus plugging of bronchi Current Visit: Yes Status: Acute Subjective Principal diagnosis: Pneumothorax, Elevated Trop Interval history: Jaja is status post thoracotomy with pleurodesis today and understandably she is in severe pain which the narcotic [employer] appears to be helping to some degree . He says that her lungs feel clear she denies any productive cough Objective PUL Vital signs: Last Vital Signs Temp 97.6 F 02/08/17 16:14 Pulse 70 02/08/17 16:17 Resp 15 02/08/17 16:26 BP 140/78 02/08/17 16:14 Pulse Ox 95 02/08/17 16:26 General appearance: appears uncomfortable Effort: other (Chest tubes note on the right ) Auscultation: bilateral: clear Cardiovascular: regular rate and rhythm Extremities: no edema Musculoskeletal: no deformities normal mental status Results - Laboratory Findings CBC and BMP: 02/08/17 05:58 02/08/17 05:58 PT/INR, D-dimer PT 11.6 Seconds (9.4-12.1) 02/03/17 14:40 Abnormal lab findings: Abnormal lab results WBC 13.8 K/mcL (4.3-11.1) H 02/08/17 05:58 RBC 3.76 M/mcL (3.82-4.97) L 02/08/17 05:58 MPV 9.1 fL (9.4-12.4) L 02/08/17 05:58 Neutrophils # 9.8 K/mcL (1.6-8.9) H 02/08/17 05:58 APTT 53.6 Seconds (26.0-36.0) H 02/04/17 10:53 BUN 24 mg/dL (7-20) H D 02/08/17 05:58 BUN/Creatinine Ratio 39 (6-26) H 02/08/17 05:58 Glucose 105 mg/dL (70-99) H 02/08/17 05:58 POC Glucose 108 (58-89) H 02/08/17 05:29 Troponin I 0.46 ng/mL (0-0.03) H* 02/03/17 18:33 Serum Total Protein 5.7 g/dL (6.0-8.3) L 02/03/17 04:43 Albumin 3.0 g/dL (3.5-5.0) L 02/03/17 04:43 Cholesterol 244 mg/dL (< 200) H 02/03/17 04:43 LDL Cholesterol, Calc 165 mg/dL (0-99) H 02/03/17 04:43 HDL Cholesterol 61 mg/dL (40-59) H 02/03/17 04:43 Fluid Appearance Cloudy (Clear) A 02/07/17 13:04 - Microbiology Findings Microbiology Findings: Microbiology, Last 48 Hours 02/07/17 13:04 Acid Fast Stain - Final Right Lower Lobe Lung 02/07/17 13:04 Gram Stain - Final Right Lower Lobe Lung Respiratory Culture - Preliminary No growth. - Clinical Findings Intake & Output: Intake & Output 02/08/17 02/08/17 02/08/17 07:59 15:59 23:59 Intake Total 20 / 20 Output Total 40 / 40 162 / 162 169 / 169 Balance -40 / -40 -142 / -142 -169 / -169 Weight 52.3 kg - VTE Documentation of Mechanical Device: Intermittent pneumatic compression device Consult Discharge Plan - Plan Referrals: Artrip,Elias, P[employer]OGRAPH I ENGRAVER [Primary Care Provider] - (WALK IN CLINIC THEY MAKE NO APPOINTMENTS) Supriya Wood MD [Partnered Physician] - 03/02/17 1:00 pm Reilly De Luna CNP [Advanced Practice Nurse] - (OFFICE WILL CALL PATIENT AT HOME WITH A FOLLOW UP APPOINTMENT)
--- NOTE | 2017-02-08 18:05 | Internal Med Progress Note ---
Date of Encounter: 02/08/17 Time of Encounter: 15:00 - Assessment and plan (1) DVT prophylaxis Current Visit: No Status: Acute Assessment and plan: Hold heparin due to epidural morphine pump infusion. We will use SCDs. (2) CAD (coronary artery disease) Current Visit: Yes Status: Chronic Assessment and plan: Chest pain free this morning Continue home ASA, Lipitor, BB, ACEi Qualifiers: Coronary Disease-Associated Artery/Lesion type: [place] artery [place] vs. transplanted heart: [place] heart Associated angina: without angina Qualified Code(s): I25.10 - Atherosclerotic heart disease of [place] coronary artery without angina pectoris (3) Hypertension Current Visit: No Status: Chronic Assessment and plan: Blood pressures well controlled since admission Continue home Coreg, Lisinopril Qualifiers: Hypertension type: essential hypertension Qualified Code(s): I10 - Essential (primary) hypertension (4) Pneumothorax on right Current Visit: Yes Status: Acute Assessment and plan: Status post thoracotomy with decortication today. Tolerated the procedure well. She has excruciating pain which is inadequately controlled at this time. I will increase the Toradol to 30 mg IV every 6 scheduled for the next 24 hours and increase the Dilaudid to 1 mg every 4 hours. Continue chest tube management per CT surgery. (5) Acute exacerbation of COPD with asthma Current Visit: No Status: Acute Assessment and plan: Continue with prednisone and inhaled albuterol and ipratropium. Continue with oxygen by nasal cannula. (6) Tobacco abuse Current Visit: No Status: Chronic Assessment and plan: I encouraged smoking cessation. - Subjective Interval history: Patient is status post thoracotomy with pleurodesis today. She reports severe chest pain, aching, improves with IV Dilaudid, still 8/10 currently. - Constitutional Vitals: Temp Pulse Resp BP Pulse Ox 97.6 F 70 15 140/78 95 02/08/17 16:14 02/08/17 16:17 02/08/17 16:26 02/08/17 16:14 02/08/17 16:26 General appearance: Present: cooperative, mild distress, pleasant, answers questions appropriately - Eye Eye exam: Present: PERRL, conjuntiva pink, sclera anicteric Pupils: Present: PERRL - Respiratory Respiratory exam: Present: CTAB. Absent: accessory muscle use, rales, rhonchi, wheezes Additional comments: Chest tube present. - Cardiovascular Cardiovascular exam: Present: RRR, +S1, +S2. Absent: diastolic murmur, gallop, rubs, systolic murmur - GI/Abdominal GI/Abdominal exam: Present: normal bowel sounds, soft, no peritoneal signs. Absent: distended, tenderness - Skin Skin exam: Present: dry, intact Internal Medicine: Result - Labs CBC & Chem 7: 02/08/17 05:58 02/08/17 05:58 Labs: Short CBC 02/08/17 Range/Units 05:58 WBC 13.8 H (4.3-11.1) K/mcL Hgb 11.8 (11.5-15.4) g/dL Hct 35.8 (35.3-44.9) % Plt Count 295 (140-400) K/mcL Neutrophils # 9.8 H (1.6-8.9) K/mcL BMP 02/08/17 05:58 Sodium 142 Potassium 3.7 Chloride 107 Carbon Dioxide 28 BUN 24 H D Creatinine 0.61 Glucose 105 H Calcium 8.8 - ABG Interpretation ABG results: PT/INR, D-dimer PT 11.6 Seconds (9.4-12.1) 02/03/17 14:40 - Impressions Impressions Chest X-Ray 02/08/17 09:35 IMPRESSION: Minimal amount of pleural air present on the right following placement of 2 thoracostomy tubes. Slight bibasilar atelectasis. D/ / Oscar De La Torre MD / Oscar De La Torre MD Interpreting Provider: Oscar De La Torre MD - VTE Documentation of Mechanical Device: Intermittent pneumatic compression device Consult Discharge Plan - Plan Referrals: Elias Martinez CNP [Primary Care Provider] - (WALK IN CLINIC THEY MAKE NO APPOINTMENTS) Supriya Wood MD [Partnered Physician] - 03/02/17 1:00 pm Reilly De Luna CNP [Advanced Practice Nurse] - (OFFICE WILL CALL PATIENT AT HOME WITH A FOLLOW UP APPOINTMENT)
[2017-02-08] MEDS: Morphine Sulfate/PF 10mg/10mL 10 MG, Bupivacaine-MPF 0.25% 125 ML in 0.9 % Sodium Chlor... EP SCH (19:00)
[2017-02-08] MEDS: Acetaminophen IV 500 MG/50 ML INFUS..BTL IVPB SCH (19:45)
--- NOTE | 2017-02-08 21:27 | Anesthesia Progress Note ---
Date of Encounter: 02/08/17 Time of Encounter: 21:00 Anesthesia Note - Note Note: 02/08/17 21:17 CTSP re: Follow-up Thoracic Epidural for R-thoracotomy earlier today. At [address] Welch reported that Pt had concerns regarding L-hand "numbness" and persistent R-thoracic pain despite epidural placement. Pt also concerned re: small amount of blood tinged fluid trapped beneath occlusive epidural dressing. Pt seen in 2N16 sitting bedside in Chair appearing bright and engaging watching A&E on TV with daughter present. Pt stated her Pain had improved from "Miserable " to a "3/10" with the administration of OFirmev and adjustment of Epidural Catheter by Dr. Welch earlier this evening. Pt demonstrated ability to move all 4 limbs full ROM with ease while seated in Chair. Pt reassured that subjective numbness/weakness could be attributed to dilute Local Anesthetic within her Epidural Solution. Pt was also reassured that small amount of blood tinged drainage was WNL for epidural placement. Vital Signs/O2 Sat/Glucose, Most Current Temp Pulse Resp BP Pulse Ox 02/08/17 20:29 98.4 F 98 16 101/50 93 02/08/17 20:06 93 20 93 02/08/17 18:51 76 20 93 Brent Foley MD
[2017-02-09] MEDS: Acetaminophen IV 500 MG/50 ML INFUS..BTL IVPB SCH ×2 (02:13→10:49)
[2017-02-09] MEDS: Ketorolac 30 MG/ML VIAL IVP SCH ×2 (03:35→10:47)
[2017-02-09] MEDS: Mag Hydrox/Al Hydrox/Simeth 30 ML UDC PO PRN (03:36)
[2017-02-09] MEDS: Ipratropium/Albuterol Neb 3 ML IH SCH ×4 (03:46→22:39)
[2017-02-09 04:28] LABS: Basophils % 0.1 %; Mean Platelet Volume 9.2 fL (9.4-12.4); Segmented Neutrophils % 68.9 %
[2017-02-09 04:29] LABS: BUN/Creatinine Ratio 44 (6-26); Blood Urea Nitrogen 28 mg/dL (7-20); Calcium 8.4 mg/dL (8.6-10.8); Carbon Dioxide 27 mEq/L (19-29); Chloride 107 mEq/L (98-109); Glucose 129 mg/dL (70-99); Osmolality,Calculated 295 (280-300); Potassium 4.4 mEq/L (3.5-4.5); Sodium 139 mEq/L (136-145); eGFR For African Americans > 60 (> 60); eGFR For Non-African Americans > 60 (> 60)
[2017-02-09 04:37] LABS: Eosinophils # 0.1 K/mcL (0.0-0.6); Hematocrit 33.1 % (35.3-44.9); Hemoglobin 10.9 g/dL (11.5-15.4); Immature Granulocytes % 0.6 % (0-4); Immature Platelets 2.3 % (1.1-6.1); Lymphocytes # 3.2 K/mcL (0.6-4.6); Lymphocytes % 22.1 %; Mean Corpuscular HGB Conc 32.9 g/dL (31.6-35.5); Mean Corpuscular Hemoglobin 31.4 pg (28.0-33.3); Mean Corpuscular Volume 95.4 fL (83.0-100.0); Monocytes # 1.1 K/mcL (0.0-1.3); Monocytes % 7.3 %; Platelet Count 298 K/mcL (140-400); Red Blood Count 3.47 M/mcL (3.82-4.97); Red Cell Distribution Width 14.7 % (11.5-14.5)
[2017-02-09] MEDS: 0.9 % Sodium Chloride w KCl 20 MEQ/1,000 ML MLS IVC SCH (06:00)
[2017-02-09] MEDS: Aspirin 81 MG TAB.CHEW PO SCH (07:50)
[2017-02-09] MEDS: levoFLOXacin 750 MG TABLET PO SCH (07:50)
[2017-02-09] MEDS: *HR* OxyCODONE/APAP 5/325 TABLET PO PRN ×2 (07:50→16:16)
[2017-02-09] MEDS: Gabapentin 300 MG CAPSULE PO SCH ×3 (07:51→21:38)
--- NOTE | 2017-02-09 07:54 | Cardiothoracic Progress Note ---
Date of Encounter: 02/09/17 Time of Encounter: 07:52 - Assessment and plan (1) Pneumothorax on right Current Visit: Yes Status: Acute The patient remained relatively stable overnight. She has no respiratory complaints this morning. She will continue with aggressive pulmonary toilet. Chest tubes remain on suction for 3-4 more days. The assessment and plan as outlined above was discussed with the patient and/or family members who expressed understanding and agreement. All questions were answered. - Subjective Procedure(s) Performed: POD#1 Right thoracotomy with apical bleb resection and mechanical pleurodesis Interval history: The patient remained hemodynamically stable overnight. She states that the epidural is working well for postoperative pain control. She has no respiratory complaints. Vital Signs, Last 4 Hours Temp Pulse Resp BP Pulse Ox 02/09/17 07:43 98.6 F 88 16 96/58 94 02/09/17 05:17 98.4 F 90 16 87/46 93 Oxgyen Flow Rate Oxygen Flow Rate (LPM) 2 Clinical Data, last 8 Hours Output, Chest Tube Drainage 190 Amount [Right Mid-Axillary Chest #2] Output, Chest Tube Drainage 30 Amount [Right Mid-Axillary Chest #1] Output, Urine Amount 150 Output, Urine Amount 120 Weight 02/07/17 02/08/17 02/09/17 23:59 23:59 23:59 Weight 51.7 kg 52.3 kg 54.431 kg - Physical Examination General: Conversant, No Apparent Distress Neck: No JVD, Normal carotid pulses Cardiac: Reg Rate and Rhythm, Normal S1 and S2, No Murmur Incision: No signs of infection, Dry/intact dressing Chest tubes: Minimal drainage, Other (No air leak.) Lungs: Normal Breath Sounds, No Wheeze, Rales, Rhonchi Neuro: Alert and responsive, No focal deficits noted Vascular: Normal capillary refill Extremities: No Clubbing, No Cyanosis, No Edema - Labs 02/09/17 04:07 02/09/17 04:07 Lab Results, Last 24 hours 02/09/17 02/09/17 04:07 04:07 WBC 14.4 H Hgb 10.9 L Hct 33.1 L Plt Count 298 Sodium 139 Potassium 4.4 Chloride 107 Carbon Dioxide 27 BUN 28 H Creatinine 0.64 Glucose 129 H Calcium 8.4 L - Imaging Chest Xray: image reviewed (No pneumothorax. Minimal atelectasis/infiltrates.) - VTE Documentation of Mechanical Device: Intermittent pneumatic compression device Consult Discharge Plan - Plan Referrals: Elias Martinez CNP [Primary Care Provider] - (WALK IN CLINIC THEY MAKE NO APPOINTMENTS) Supriya Wood MD [Partnered Physician] - 03/02/17 1:00 pm Reilly De Luna CNP [Advanced Practice Nurse] - (OFFICE WILL CALL PATIENT AT HOME WITH A FOLLOW UP APPOINTMENT)
[2017-02-09] MEDS: predniSONE 20 MG TABLET PO SCH (07:58)
--- NOTE | 2017-02-09 08:15 | Internal Med Progress Note ---
<Orville Medeiros - Last Filed: 02/09/17 09:54> Date of Encounter: 02/09/17 Time of Encounter: 08:13 - Assessment and plan (1) Pneumothorax, acute Current Visit: Yes Status: Acute Assessment and plan: CXR this morning demonstrated resovlved PTX POD #1 Thoracotomy, mechanical pleurodesis, and apical bleb resection Per CTS, will keep chest tube under wall suction for 3-4 days Recheck CXR in AM to monitor for resolution She remains hemodynamically stable and breathing well on 2 L s/p Epidural per anesthesia for pain related to chest tube (2) Acute exacerbation of chronic obstructive airways disease Current Visit: No Status: Acute Assessment and plan: Continue breathing treatments, supplemental oxygen and steroids Currently on Levaquin 750 mg, day 4, for total of 7 days Per Pulm, will continue 14 day steroid taper (3) Elevated troponin Current Visit: Yes Status: Acute Assessment and plan: She did have initial trop of 0.24 which increased to 0.55, 0.46 and she is no longer having chest pain Cardiology consulted and plan on C as outpatient Patient did have LHC this August which showed 90% stenosis of left PDA but could not get stent due to coughing spells during procedure (4) CAD (coronary artery disease) Current Visit: Yes Status: Chronic Assessment and plan: Chest pain free this morning Continue home ASA, Lipitor, BB, ACEi Qualifiers: Coronary Disease-Associated Artery/Lesion type: [place] artery [place] vs. transplanted heart: [place] heart Associated angina: without angina Qualified Code(s): I25.10 - Atherosclerotic heart disease of [place] coronary artery without angina pectoris (5) Hypertension Current Visit: No Status: Chronic Assessment and plan: Blood pressures well controlled since admission Continue home Coreg, Lisinopril Qualifiers: Hypertension type: essential hypertension Qualified Code(s): I10 - Essential (primary) hypertension (6) Tobacco abuse Current Visit: No Status: Chronic Assessment and plan: Encourage smoking cessation; she did quit 2 weeks prior to admission Continue Nicoderm (7) DVT prophylaxis Current Visit: No Status: Acute Assessment and plan: Hold heparin due to epidural morphine pump infusion. We will use SCDs. - Subjective Interval history: Pt seen and examined. She states her back pain where the chest tube was inserted is better and rates it at at 4/10. She has no issues with chest pain and is breathing well on 2 L of nasal cannula. Is tolerating her diet without issues of nausea, vomiting, diarrhea, fevers, or chills. - Constitutional Vitals: Temp Pulse Resp BP Pulse Ox 98.6 F 88 16 96/58 94 02/09/17 07:43 02/09/17 07:43 02/09/17 07:43 02/09/17 07:43 02/09/17 07:43 General appearance: Present: cooperative, mild distress, pleasant, answers questions appropriately - Head Head exam: Present: atraumatic, normocephalic - Eye Eye exam: Present: PERRL, conjuntiva pink, sclera anicteric - Neck Neck exam general surgery: Present: supple, trachea midline. Absent: lymphadenopathy - Respiratory Respiratory exam: Present: decreased breath sounds. Absent: accessory muscle use, rales, rhonchi, wheezes - Cardiovascular Cardiovascular exam: Present: RRR, +S1, +S2. Absent: diastolic murmur, gallop, rubs, systolic murmur - GI/Abdominal GI/Abdominal exam: Present: normal bowel sounds, soft, no peritoneal signs. Absent: distended, tenderness - Extremities Exam Extremities exam: Present: warm, radial pulses palpable and symmetrical. Absent : calf tenderness, cyanotic, pedal edema - Neurological Exam Neurological exam: Present: alert, no focal deficits. Absent: facial droop, speech deficit - Skin Skin exam: Present: dry, intact Internal Medicine: Result - Labs CBC & Chem 7: 02/09/17 04:07 02/09/17 04:07 Labs: Short CBC 02/09/17 Range/Units 04:07 WBC 14.4 H (4.3-11.1) K/mcL Hgb 10.9 L (11.5-15.4) g/dL Hct 33.1 L (35.3-44.9) % Plt Count 298 (140-400) K/mcL Neutrophils # 10.0 H (1.6-8.9) K/mcL BMP 02/09/17 04:07 Sodium 139 Potassium 4.4 Chloride 107 Carbon Dioxide 27 BUN 28 H Creatinine 0.64 Glucose 129 H Calcium 8.4 L - ABG Interpretation ABG results: PT/INR, D-dimer PT 11.6 Seconds (9.4-12.1) 02/03/17 14:40 - Impressions Impressions Chest X-Ray 02/08/17 09:35 IMPRESSION: Minimal amount of pleural air present on the right following placement of 2 thoracostomy tubes. Slight bibasilar atelectasis. D/ / Oscar De La Torre MD / Oscar De La Torre MD Interpreting Provider: Oscar De La Torre MD Chest X-Ray 02/09/17 06:00 IMPRESSION: Stable right hemithorax chest tubes with no significant pneumothorax. Mild bibasilar atelectasis. D/ / Bib Nguyen MD / Bib Nguyen MD Interpreting Provider: Bib Nguyen MD - VTE Documentation of Mechanical Device: Intermittent pneumatic compression device Consult Discharge Plan - Plan Referrals: Elias Martinez CNP [Primary Care Provider] - (WALK IN CLINIC THEY MAKE NO APPOINTMENTS) Supriya Wood MD [Partnered Physician] - 03/02/17 1:00 pm Reilly De Luna CNP [Advanced Practice Nurse] - (OFFICE WILL CALL PATIENT AT HOME WITH A FOLLOW UP APPOINTMENT) <Christian Morales - Last Filed: 02/09/17 18:35> Date of Encounter: 02/09/17 - Assessment and plan (1) Pneumothorax, acute Current Visit: Yes Status: Acute (2) CAD (coronary artery disease) Current Visit: Yes Status: Chronic Qualifiers: Coronary Disease-Associated Artery/Lesion type: [place] artery [place] vs. transplanted heart: [place] heart Associated angina: without angina Qualified Code(s): I25.10 - Atherosclerotic heart disease of [place] coronary artery without angina pectoris (3) Acute exacerbation of chronic obstructive airways disease Current Visit: No Status: Acute (4) Hypertension Current Visit: No Status: Chronic Qualifiers: Hypertension type: essential hypertension Qualified Code(s): I10 - Essential (primary) hypertension (5) Non-ischemic cardiomyopathy Current Visit: No Status: Acute (6) Tobacco abuse Current Visit: No Status: Chronic - Constitutional Vitals: Temp Pulse Resp BP Pulse Ox 98.3 F 83 18 100/57 92 02/09/17 16:30 02/09/17 16:30 02/09/17 16:30 02/09/17 16:30 02/09/17 16:30 Internal Medicine: Result - Labs CBC & Chem 7: 02/09/17 04:07 02/09/17 04:07 Labs: Short CBC 02/09/17 Range/Units 04:07 WBC 14.4 H (4.3-11.1) K/mcL Hgb 10.9 L (11.5-15.4) g/dL Hct 33.1 L (35.3-44.9) % Plt Count 298 (140-400) K/mcL Neutrophils # 10.0 H (1.6-8.9) K/mcL BMP 02/09/17 04:07 Sodium 139 Potassium 4.4 Chloride 107 Carbon Dioxide 27 BUN 28 H Creatinine 0.64 Glucose 129 H Calcium 8.4 L - ABG Interpretation ABG results: PT/INR, D-dimer PT 11.6 Seconds (9.4-12.1) 02/03/17 14:40 - Impressions Impressions Chest X-Ray 02/09/17 06:00 IMPRESSION: Stable right hemithorax chest tubes with no significant pneumothorax. Mild bibasilar atelectasis. D/ / 02/09/2017 08:11:43 Bib Nguyen MD / dori Interpreting Provider: Bib Nguyen MD - Attending Attestation I examined this patient and my medical decision-making was reviewed with the Resident Physician on 02/09/17. I agree with the documented findings, disposition and treatment plan as described except to the extent set forth below. Ms Kirkland is currently admitted for acute PTX and is s/p pleurodesis. She remains moderate to high risk due to chest tubes and potential for worsening respiratory status. Ms Kirkland feels OK. She is having some pain with movement but is able to do more today. No fever or chills. No GI issues. Pain control adequate at this time. Exam Alert. Comfortable. Mucus membranes dry Heart reg Diminished breath sounds Abd soft I/P 1. PTX Further diagnoses and plan as above.
--- NOTE | 2017-02-09 08:20 | Anesthesia Procedures ---
Date of Encounter: 02/09/17 Time of Encounter: 08:22 Procedures: Anesthesia - Epidural Rounding Post Op Day #: 1 Procedure: Right thoracotomy with apical bleb resection and mechanical pleurodesis Pain Control: Good Breakthrough Pain Meds: Yes Vital Signs: Vital Signs Temp Pulse Resp BP Pulse Ox 02/09/17 07:43 98.6 F 88 16 96/58 94 02/09/17 05:17 98.4 F 90 16 87/46 93 02/09/17 03:46 18 95 02/09/17 00:35 82 14 96 02/09/17 00:32 98.4 F 91 14 102/50 96 02/08/17 21:18 16 94 02/08/17 20:29 98.4 F 98 16 101/50 93 02/08/17 20:06 93 20 93 02/08/17 18:51 76 20 93 02/08/17 16:26 15 95 02/08/17 16:17 70 02/08/17 16:14 97.6 F 59 14 140/78 97 02/08/17 15:00 98.7 F 63 12 137/78 96 02/08/17 14:00 59 14 142/74 96 02/08/17 12:45 76 20 134/110 92 02/08/17 12:15 65 18 130/80 94 02/08/17 12:04 16 100 02/08/17 12:00 72 20 120/80 93 02/08/17 11:45 64 18 140/80 93 02/08/17 11:30 53 20 148/80 95 02/08/17 11:14 96.7 F L 65 16 148/80 97 02/08/17 11:00 97.7 F 55 16 163/85 98 02/08/17 10:50 97.7 F 63 14 145/84 97 02/08/17 10:40 67 18 165/98 97 02/08/17 10:30 97.7 F 66 22 164/91 99 02/08/17 10:20 66 19 170/100 96 02/08/17 10:10 60 26 175/95 97 02/08/17 10:00 97.2 F L 60 25 164/94 95 02/08/17 09:50 63 21 162/94 97 02/08/17 09:40 63 18 155/87 96 02/08/17 09:30 97.7 F 80 12 152/88 95 Intake and Output 02/08/17 02/09/17 02/09/17 23:59 07:59 15:59 Intake Total 250 / 250 1050 / 1050 Output Total 319 / 319 490 / 490 Balance -69 / -69 560 / 560 Intake: IV Fluids 70 / 70 1050 / 1050 KCl 20 mEq in 0.9% Sodium 1000 / 1000 Chloride 20 meq In 1,000 ml @ 50 mls/hr IVC .Q20H JOSEPH Rx#: [id number] Ancef 2,000 MG In Water for inj 20 / 20 . (sterile) 20 ML @ 200 mls/hr IVP Q8H JOSEPH Rx#:[id number] Ofirmev 1,000 mg/100 ml 500 mg 50 / 50 50 / 50 In 50 ml @ 200 mls/hr IVPB Q8H JOSEPH Rx#:[id number] Oral 180 / 180 Output: Urine 150 / 150 270 / 270 Catheter 125 / 125 Chest Tube Drainage 44 / 44 220 / 220 Right Mid-Axillary Chest #1 8 / 8 30 / 30 Right Mid-Axillary Chest #2 36 / 36 190 / 190 Other: Meal Dinner Percent of Meal Consumed 90% Weight 54.431 kg Patient Weight 02/09/17 23:59 Weight 54.431 kg Mental Status: awake Catheter Site Dressing Intact: Yes Erythema: No Pruritus: not present Signs of Infection At Catheter Site: No Plan: Comment (Left hand very numb; will decrease rate from 6 to 5 ml/hr) Anes Supervising Prov Stmt: If Left hand numbness worsens, patient is to notify nurse. Epidural rate will need to be further decreased.
[2017-02-09] MEDS: Budesonide/Formoterol 80/4.5 MDI IH SCH ×2 (11:32→22:39)
[2017-02-09] MEDS ORDERED: Ketorolac 15 MG/ML VIAL IVP PRN (16:00)
[2017-02-09] MEDS: Nicotine 21 MG PATCH.TD24 TD SCH (16:16)
[2017-02-09] MEDS: Sennosides/Docusate Sodium TABLET PO SCH (21:38)
[2017-02-10 04:02] LABS: Basophils % 0.1 %; Eosinophils # 0.4 K/mcL (0.0-0.6); Eosinophils % 2.9 %; Hematocrit 33.2 % (35.3-44.9); Hemoglobin 10.9 g/dL (11.5-15.4); Immature Granulocytes % 0.7 % (0-4); Lymphocytes # 3.2 K/mcL (0.6-4.6); Lymphocytes % 22.9 %; Mean Corpuscular HGB Conc 32.8 g/dL (31.6-35.5); Mean Corpuscular Hemoglobin 31.6 pg (28.0-33.3); Mean Corpuscular Volume 96.2 fL (83.0-100.0); Mean Platelet Volume 9.3 fL (9.4-12.4); Monocytes # 1.3 K/mcL (0.0-1.3); Platelet Count 294 K/mcL (140-400); Red Blood Count 3.45 M/mcL (3.82-4.97); Red Cell Distribution Width 14.7 % (11.5-14.5); Segmented Neutrophils % 64.4 %
[2017-02-10 04:15] LABS: BUN/Creatinine Ratio 47 (6-26); Blood Urea Nitrogen 28 mg/dL (7-20); Calcium 8.7 mg/dL (8.6-10.8); Carbon Dioxide 29 mEq/L (19-29); Chloride 107 mEq/L (98-109); Glucose 97 mg/dL (70-99); Osmolality,Calculated 295 (280-300); Potassium 4.3 mEq/L (3.5-4.5); Sodium 140 mEq/L (136-145); eGFR For African Americans > 60 (> 60); eGFR For Non-African Americans > 60 (> 60)
[2017-02-10] MEDS: Ipratropium/Albuterol Neb 3 ML IH SCH ×4 (04:16→23:29)
[2017-02-10] MEDS: 0.9 % Sodium Chloride w KCl 20 MEQ/1,000 ML MLS IVC SCH (06:11)
[2017-02-10] MEDS: predniSONE 20 MG TABLET PO SCH (07:51)
[2017-02-10] MEDS: Aspirin 81 MG TAB.CHEW PO SCH (07:51)
[2017-02-10] MEDS: Gabapentin 300 MG CAPSULE PO SCH ×3 (07:51→21:40)
[2017-02-10] MEDS: Sennosides/Docusate Sodium TABLET PO SCH ×2 (07:51→21:39)
[2017-02-10] MEDS: levoFLOXacin 750 MG TABLET PO SCH (07:51)
--- NOTE | 2017-02-10 08:03 | Cardiothoracic Progress Note ---
Date of Encounter: 02/10/17 Time of Encounter: 08:01 - Assessment and plan (1) Pneumothorax on right Current Visit: Yes Status: Acute The patient remained relatively stable overnight. She has no respiratory complaints this morning. She will continue with aggressive pulmonary toilet. Chest tubes remain on suction for 3-4 more days. She will begin ambulating the hallways today. The assessment and plan as outlined above was discussed with the patient and/or family members who expressed understanding and agreement. All questions were answered. - Subjective Procedure(s) Performed: POD#2 Right thoracotomy with apical bleb resection and mechanical pleurodesis Interval history: The patient remained hemodynamically stable overnight. She states that the epidural is working well for postoperative pain control. She has no respiratory complaints. Vital Signs, Last 4 Hours Temp Pulse Resp BP Pulse Ox 02/10/17 07:55 63 02/10/17 06:39 98.6 F 68 12 86/49 91 02/10/17 04:16 16 91 Oxgyen Flow Rate Oxygen Flow Rate (LPM) 2 Clinical Data, last 8 Hours Output, Chest Tube Drainage 5 Amount [Right Mid-Axillary Chest #2] Output, Chest Tube Drainage 30 Amount [Right Mid-Axillary Chest #2] Output, Chest Tube Drainage 15 Amount [Right Mid-Axillary Chest #1] Output, Chest Tube Drainage 5 Amount [Right Mid-Axillary Chest #1] Weight 02/08/17 02/09/17 02/10/17 23:59 23:59 23:59 Weight 52.3 kg 54.431 kg 55.4 kg - Physical Examination General: Conversant, No Apparent Distress HEENT: Atraumatic, Normocephaly, Trachea midline Neck: No JVD, Normal carotid pulses Cardiac: Reg Rate and Rhythm, Normal S1 and S2, No Murmur Incision: No signs of infection, Dry/intact dressing Chest tubes: Minimal drainage, Other (No air leak.) Lungs: Normal Breath Sounds, No Wheeze, Rales, Rhonchi Neuro: Alert and responsive, No focal deficits noted Vascular: Normal capillary refill Extremities: No Clubbing, No Cyanosis, No Edema, Normal Pulses - Labs 02/10/17 03:08 02/10/17 03:08 Lab Results, Last 24 hours 02/10/17 02/10/17 03:08 03:08 WBC 13.9 H Hgb 10.9 L Hct 33.2 L Plt Count 294 Sodium 140 Potassium 4.3 Chloride 107 Carbon Dioxide 29 BUN 28 H Creatinine 0.60 Glucose 97 Calcium 8.7 - Imaging Chest Xray: image reviewed (Small right lateral pneumothorax. Multiple atelectasis/infiltrates.) - VTE Documentation of Mechanical Device: Intermittent pneumatic compression device Consult Discharge Plan - Plan Referrals: Elias Martinez CNP [Primary Care Provider] - ([facility] CL[facility] THEY MAKE NO APPOINTMENTS) Supriya Wood MD [Partnered Physician] - 03/02/17 1:00 pm Reilly De Luna CNP [Advanced Practice Nurse] - (OFFICE WILL CALL PATIENT AT HOME WITH A FOLLOW UP APPOINTMENT)
[2017-02-10] MEDS: Morphine Sulfate/PF 10mg/10mL 10 MG, Bupivacaine-MPF 0.25% 125 ML in 0.9 % Sodium Chlor... EP SCH (08:42)
[2017-02-10] MEDS: Budesonide/Formoterol 80/4.5 MDI IH SCH ×2 (11:16→23:29)
[2017-02-10 16:24] LABS: RVP Body Fluid Source BAL
[2017-02-10] MEDS: Nicotine 21 MG PATCH.TD24 TD SCH (16:50)
--- NOTE | 2017-02-10 17:47 | Internal Med Progress Note ---
<Ash Cazares - Last Filed: 02/10/17 18:16> Date of Encounter: 02/10/17 Time of Encounter: 08:50 - Assessment and plan (1) Pneumothorax, acute Current Visit: Yes Status: Acute Assessment and plan: s/p Thoracotomy, mechanical pleurodesis, and apical bleb resection s/p Epidural per anesthesia for pain related to chest tube Per CTS, will keep chest tube under wall suction until likely Tuesday 02/13 Hemodynamically stable and breathing well on room air (2) CAD (coronary artery disease) Current Visit: Yes Status: Chronic Assessment and plan: Chest pain free this morning Continue home ASA, Lipitor, BB, ACEi Qualifiers: Coronary Disease-Associated Artery/Lesion type: [place] artery [place] vs. transplanted heart: [place] heart Associated angina: without angina Qualified Code(s): I25.10 - Atherosclerotic heart disease of [place] coronary artery without angina pectoris (3) Acute exacerbation of COPD with asthma Current Visit: No Status: Acute Assessment and plan: Pt saturating well on room air. Continue with prednisone (tapering) and inhaled albuterol and ipratropium. (4) Hypertension Current Visit: No Status: Chronic Assessment and plan: Continue home Coreg, Lisinopril BPs WNL Qualifiers: Hypertension type: essential hypertension Qualified Code(s): I10 - Essential (primary) hypertension (5) Elevated troponin Current Visit: Yes Status: Acute Assessment and plan: .24, .55, .54, .46 from 02/02 to 02/03 Cardiology consulted and plan on [facility] as outpatient Patient did have LHC this August which showed 90% stenosis of left PDA, could not proceed with intervention due to coughing spells. (6) DVT prophylaxis Current Visit: No Status: Acute Assessment and plan: On intermittent pneumatic compression. (7) Tobacco abuse Current Visit: No Status: Chronic Assessment and plan: Continue Nicoderm, cravings minimal. - Subjective Interval history: PMH: COPD, asthma, HLD ED course: Pt presented via EMS with biPAP, onset 2 days prior, worsening shortness of breath with nocturnal awakening at 0300 with inability to take deep breath. CXR demonstrated R sided pneumothorax, chest tube was placed, symptoms significantly improved. Today: pt reports good lung excursion and no trouble breathing. No complaints. - Constitutional Vitals: Temp Pulse Resp BP Pulse Ox 98.1 F 93 17 88/41 96 02/10/17 14:54 02/10/17 14:56 02/10/17 15:52 02/10/17 14:54 02/10/17 15:52 General appearance: Present: cooperative, mild distress, pleasant, answers questions appropriately - Head Head exam: Present: atraumatic - Neck Neck exam general surgery: Present: full ROM - Respiratory Respiratory exam: Present: CTAB Additional comments: R chest tube in place - Cardiovascular Cardiovascular exam: Present: RRR, +S1, +S2 - Extremities Exam Extremities exam: Present: full ROM, normal capillary refill. Absent: cyanotic - Neurological Exam Neurological exam: Absent: facial droop, speech deficit - Skin Skin exam: Absent: cyanosis Internal Medicine: Result - Labs CBC & Chem 7: 02/10/17 03:08 02/10/17 03:08 Labs: Short CBC 02/10/17 Range/Units 03:08 WBC 13.9 H (4.3-11.1) K/mcL Hgb 10.9 L (11.5-15.4) g/dL Hct 33.2 L (35.3-44.9) % Plt Count 294 (140-400) K/mcL Neutrophils # 9.0 H (1.6-8.9) K/mcL BMP 02/10/17 03:08 Sodium 140 Potassium 4.3 Chloride 107 Carbon Dioxide 29 BUN 28 H Creatinine 0.60 Glucose 97 Calcium 8.7 - ABG Interpretation ABG results: PT/INR, D-dimer PT 11.6 Seconds (9.4-12.1) 02/03/17 14:40 - Impressions Impressions Chest X-Ray 02/10/17 06:00 IMPRESSION: Small lateral loculated pneumothorax on the right. Left lower lobe atelectasis or pneumonia. D/ / Zain Morales MD / Zain Morales MD Interpreting Provider: Zain Morales MD - VTE Documentation of Mechanical Device: Intermittent pneumatic compression device Consult Discharge Plan - Plan Referrals: Elias Martinez CNP [Primary Care Provider] - ([facility] THEY MAKE NO APPOINTMENTS) Supriya Wood MD [Partnered Physician] - 03/02/17 1:00 pm Reilly De Luna CNP [Advanced Practice Nurse] - (OFFICE WILL CALL PATIENT AT HOME WITH A FOLLOW UP APPOINTMENT) <Christian Morales - Last Filed: 02/10/17 18:54> Date of Encounter: 02/10/17 - Assessment and plan (1) Pneumothorax, acute Current Visit: Yes Status: Acute (2) CAD (coronary artery disease) Current Visit: Yes Status: Chronic Qualifiers: Coronary Disease-Associated Artery/Lesion type: [place] artery [place] vs. transplanted heart: [place] heart Associated angina: without angina Qualified Code(s): I25.10 - Atherosclerotic heart disease of [place] coronary artery without angina pectoris (3) Acute exacerbation of chronic obstructive airways disease Current Visit: No Status: Acute (4) Hypertension Current Visit: No Status: Chronic Qualifiers: Hypertension type: essential hypertension Qualified Code(s): I10 - Essential (primary) hypertension (5) Non-ischemic cardiomyopathy Current Visit: No Status: Acute (6) Tobacco abuse Current Visit: No Status: Chronic - Constitutional Vitals: Temp Pulse Resp BP Pulse Ox 98.7 F 100 18 108/55 93 02/10/17 18:49 02/10/17 18:49 02/10/17 18:49 02/10/17 18:49 02/10/17 18:49 Internal Medicine: Result - Labs CBC & Chem 7: 02/10/17 03:08 02/10/17 03:08 Labs: Short CBC 02/10/17 Range/Units 03:08 WBC 13.9 H (4.3-11.1) K/mcL Hgb 10.9 L (11.5-15.4) g/dL Hct 33.2 L (35.3-44.9) % Plt Count 294 (140-400) K/mcL Neutrophils # 9.0 H (1.6-8.9) K/mcL BMP 02/10/17 03:08 Sodium 140 Potassium 4.3 Chloride 107 Carbon Dioxide 29 BUN 28 H Creatinine 0.60 Glucose 97 Calcium 8.7 - ABG Interpretation ABG results: PT/INR, D-dimer PT 11.6 Seconds (9.4-12.1) 02/03/17 14:40 - Impressions Impressions Chest X-Ray 02/10/17 06:00 IMPRESSION: Small lateral loculated pneumothorax on the right. Left lower lobe atelectasis or pneumonia. D/ / Zain Morales MD / Zain Morales MD Interpreting Provider: Zain Morales MD - Attending Attestation I examined this patient and my medical decision-making was reviewed with the Resident Physician on 02/10/17. I agree with the documented findings, disposition and treatment plan as described except to the extent set forth below. Ms Kirkland is currently admitted for PTX and is s/p pleurodesis. She remains moderate to high risk due to potential for worsening respiratory status. Ms Kirkland feels somewhat better today. She has been up walking. Pain controlled. No dyspnea. No fever or chills. No GI issues. Exam Alert. Comfortable Heart reg Lungs with crackles on R Abd soft No edema I/P 1. PTX 2. COPD Further diagnoses and plan as above.
--- NOTE | 2017-02-10 19:01 | Anesthesia Progress Note ---
Date of Encounter: 02/10/17 Time of Encounter: 19:00 Anesthesia Note - Note Note: 02/10/17 19:00 Patient has Thoracic Epidural. Comfortable, VSS. Dried blood around epidural site area, otherwise clean. Will continue current rate.
[2017-02-10 22:55] LABS: HSV Source BAL
[2017-02-11] MEDS: *HR* OxyCODONE/APAP 5/325 TABLET PO PRN ×4 (00:20→22:16)
[2017-02-11] MEDS: 0.9 % Sodium Chloride w KCl 20 MEQ/1,000 ML MLS IVC SCH ×2 (01:41→22:13)
[2017-02-11] MEDS: Ipratropium/Albuterol Neb 3 ML IH SCH ×4 (04:57→22:27)
[2017-02-11 07:19] LABS: BUN/Creatinine Ratio 43 (6-26); Blood Urea Nitrogen 26 mg/dL (7-20); Calcium 8.6 mg/dL (8.6-10.8); Carbon Dioxide 27 mEq/L (19-29); Chloride 109 mEq/L (98-109); Glucose 93 mg/dL (70-99); Osmolality,Calculated 296 (280-300); Potassium 4.3 mEq/L (3.5-4.5); Sodium 141 mEq/L (136-145); eGFR For African Americans > 60 (> 60); eGFR For Non-African Americans > 60 (> 60)
[2017-02-11] MEDS: Gabapentin 300 MG CAPSULE PO SCH ×3 (08:08→20:26)
[2017-02-11] MEDS: Aspirin 81 MG TAB.CHEW PO SCH (08:08)
[2017-02-11] MEDS: levoFLOXacin 750 MG TABLET PO SCH (08:08)
[2017-02-11] MEDS: Sennosides/Docusate Sodium TABLET PO SCH ×2 (08:09→20:26)
[2017-02-11] MEDS ORDERED: predniSONE 10 MG TABLET PO SCH (09:00)
[2017-02-11] MEDS: Budesonide/Formoterol 80/4.5 MDI IH SCH ×2 (09:30→22:28)
--- NOTE | 2017-02-11 10:41 | Pulmonology Progress Note ---
Date of Encounter: 02/11/17 Time of Encounter: 10:41 Assessment and Plan (1) Acute respiratory failure Current Visit: No Status: Acute IMpression: 1. Recurrent Secondary Spontaneous PTx POD 0 s/p Right Thoracotomy with Pleurodesis 2. CAP 3. AECOPD 4. Mucous Plugging 5. Tobacco Abuse 6. CAD with NSTEMI Recs: -Continue to wean FiO2 to keep saturation greater than 88% to 92% -To give incentive spirometry and out of bed to chair as tolerated. Pain control to prevent splinting - Chest Tube management at the discretion of cardiothoracic surgery - Continue aggressive bronchopulmonary toileting -I think is advisable to actually stop the steroids in that she appears to be recovering fine from COPD exacerbation she is also completed antimicrobial therapy -Cytology was negative for malignant cells and microbiology was also negative -She will need follow-up in pulmonary clinic in 2-4 weeks at the time of discharge for ongoing management of COPD the time of discharge ideally she could be sent home with a combination long acting beta agonist and long-acting muscarinic antagonist. She may need nicotine replacement and again I encouraged her to remain tobacco free. Pulmonary will officially sign off if there are any other questions that arise please do not hesitate to call it is a pleasure to participate in the care of Jaja Kirkland Qualifiers: Respiratory failure complication: hypoxia Qualified Code(s): J96.01 - Acute respiratory failure with hypoxia (2) COPD exacerbation Current Visit: Yes Status: Acute (3) Pneumothorax on right Current Visit: Yes Status: Acute This is a recurrent Secondary Spontaneous PTX. Imaigng reveals persistent PTX swith right lung collapse. REcommen formal Consultation with CT surgery given high risk for recurrence. (4) Tobacco abuse Current Visit: No Status: Chronic tobacco abuse counseling provided. (5) Elevated troponin Current Visit: Yes Status: Acute (6) Mucus plugging of bronchi Current Visit: Yes Status: Acute Subjective Principal diagnosis: Pneumothorax, Elevated Trop Interval history: Jaja is status post thoracotomy with pleurodesis pain is improved after intrathecal anesthesia. She denies cough she is committed to not smoking but worried about cravings when she goes home her chest tubes remain in she has a small apical right pneumothorax that remains Objective PUL Vital signs: Last Vital Signs Temp 97.9 F 02/11/17 07:19 Pulse 83 02/11/17 07:19 Resp 16 02/11/17 09:28 BP 101/60 11/18/17 09:28 Pulse Ox 93 02/11/17 09:28 General appearance: no acute distress Effort: other (Chest tubes noted) Auscultation: bilateral: clear Cardiovascular: regular rate and rhythm Extremities: no cyanosis, no edema, no clubbing Results - Laboratory Findings CBC and BMP: 02/10/17 03:08 02/11/17 06:46 PT/INR, D-dimer PT 11.6 Seconds (9.4-12.1) 02/03/17 14:40 Abnormal lab findings: Abnormal lab results WBC 13.9 K/mcL (4.3-11.1) H 02/10/17 03:08 RBC 3.45 M/mcL (3.82-4.97) L 02/10/17 03:08 Hgb 10.9 g/dL (11.5-15.4) L 02/10/17 03:08 Hct 33.2 % (35.3-44.9) L 02/10/17 03:08 RDW 14.7 % (11.5-14.5) H 02/10/17 03:08 MPV 9.3 fL (9.4-12.4) L 02/10/17 03:08 Neutrophils # 9.0 K/mcL (1.6-8.9) H 02/10/17 03:08 APTT 53.6 Seconds (26.0-36.0) H 02/04/17 10:53 BUN 26 mg/dL (7-20) H 02/11/17 06:46 BUN/Creatinine Ratio 43 (6-26) H 02/11/17 06:46 POC Glucose 108 (58-89) H 02/08/17 05:29 Troponin I 0.46 ng/mL (0-0.03) H* 02/03/17 18:33 Serum Total Protein 5.7 g/dL (6.0-8.3) L 02/03/17 04:43 Albumin 3.0 g/dL (3.5-5.0) L 02/03/17 04:43 Cholesterol 244 mg/dL (< 200) H 02/03/17 04:43 LDL Cholesterol, Calc 165 mg/dL (0-99) H 02/03/17 04:43 HDL Cholesterol 61 mg/dL (40-59) H 02/03/17 04:43 Fluid Appearance Cloudy (Clear) A 02/07/17 13:04 - Microbiology Findings Microbiology Findings: Microbiology, Last 48 Hours 02/07/17 13:04 Legionella Culture - Final Right Lower Lobe Lung 02/07/17 13:04 Gram Stain - Final Right Lower Lobe Lung Respiratory Culture - Final Normal upper respiratory tract frandy. No apparent pathogens isolated. - Clinical Findings Intake & Output: Intake & Output 02/10/17 02/11/17 02/11/17 23:59 07:59 15:59 Intake Total 360 / 360 1200 / 1200 360 / 360 Output Total 276 / 276 Balance 346 / 346 924 / 924 360 / 360 - VTE Documentation of Mechanical Device: Intermittent pneumatic compression device Consult Discharge Plan - Plan Referrals: Elias Martinez CNP [Primary Care Provider] - (WALK IN CLINIC THEY MAKE NO APPOINTMENTS) Supriya Wood MD [Partnered Physician] - 03/02/17 1:00 pm Reilly De Luna CNP [Advanced Practice Nurse] - (OFFICE WILL CALL PATIENT AT HOME WITH A FOLLOW UP APPOINTMENT)
--- NOTE | 2017-02-11 10:43 | Cardiothoracic Progress Note ---
Date of Encounter: 02/11/17 Time of Encounter: 10:41 - Assessment and plan (1) Pneumothorax on right Current Visit: Yes Status: Acute The patient remained relatively stable overnight. She has no respiratory complaints this morning. She will continue with aggressive pulmonary toilet. The chest tubes will remain on suction for 2-3 more days. She will continue ambulating the hallways today. The assessment and plan as outlined above was discussed with the patient and/or family members who expressed understanding and agreement. All questions were answered. - Subjective Procedure(s) Performed: POD#3 S/P Right thoracotomy with apical bleb resection and mechanical pleurodesis Interval history: The patient remained hemodynamically stable overnight. She states that the epidural is working well for postoperative pain control. She has no respiratory complaints. Vital Signs, Last 4 Hours Temp Pulse Resp BP Pulse Ox 02/11/17 09:28 16 101/60 93 02/11/17 07:19 97.9 F 83 18 101/60 93 Oxgyen Flow Rate Oxygen Flow Rate (LPM) 2 Clinical Data, last 8 Hours Output, Chest Tube Drainage 20 Amount [Right Mid-Axillary Chest #2] Output, Chest Tube Drainage 18 Amount [Right Mid-Axillary Chest #1] Output, Urine Amount 200 Weight 02/09/17 02/10/17 02/11/17 23:59 23:59 23:59 Weight 54.431 kg 55.4 kg - Physical Examination General: Conversant, No Apparent Distress Neck: No JVD, Normal carotid pulses Cardiac: Reg Rate and Rhythm, Normal S1 and S2, No Murmur Incision: No signs of infection, Dry/intact dressing Chest tubes: Minimal drainage, Other (No air leak.) Lungs: Normal Breath Sounds, No Wheeze, Rales, Rhonchi Neuro: Alert and responsive, No focal deficits noted Vascular: Normal capillary refill Musculoskeletal: No Chest Wall Tenderness Extremities: No Clubbing, No Cyanosis, No Edema - Labs 02/10/17 03:08 02/11/17 06:46 Lab Results, Last 24 hours 02/11/17 06:46 Sodium 141 Potassium 4.3 Chloride 109 Carbon Dioxide 27 BUN 26 H Creatinine 0.61 Glucose 93 Calcium 8.6 - Imaging Chest Xray: image reviewed (Small right lateral thorax, unchanged.) - VTE Documentation of Mechanical Device: Intermittent pneumatic compression device Consult Discharge Plan - Plan Referrals: Elias Martinez CNP [Primary Care Provider] - (WALK IN CLINIC THEY MAKE NO APPOINTMENTS) Supriya Wood MD [Partnered Physician] - 03/02/17 1:00 pm Reilly De Luna CNP [Advanced Practice Nurse] - (OFFICE WILL CALL PATIENT AT HOME WITH A FOLLOW UP APPOINTMENT)
--- NOTE | 2017-02-11 15:11 | Internal Med Progress Note ---
<RickieBiglerville - Last Filed: 02/11/17 18:25> Date of Encounter: 02/11/17 Time of Encounter: 12:30 - Assessment and plan (1) Pneumothorax, acute Current Visit: Yes Status: Acute Assessment and plan: s/p Thoracotomy, mechanical pleurodesis, and apical bleb resection s/p Epidural per anesthesia for pain related to chest tube Per CTS, will keep chest tube under wall suction until likely Tuesday 02/13 Hemodynamically stable and breathing well on room air continue to follow a CTS; will attend to patients other needs in the interim (2) CAD (coronary artery disease) Current Visit: Yes Status: Chronic Assessment and plan: Chest pain free this morning Continue home ASA, Lipitor, BB, ACEi Qualifiers: Coronary Disease-Associated Artery/Lesion type: [place] artery [place] vs. transplanted heart: [place] heart Associated angina: without angina Qualified Code(s): I25.10 - Atherosclerotic heart disease of [place] coronary artery without angina pectoris (3) Acute exacerbation of COPD with asthma Current Visit: No Status: Acute Assessment and plan: Pt saturating well on room air. Continue with prednisone (tapering) and inhaled albuterol and ipratropium. No changes at this time (4) Hypertension Current Visit: No Status: Chronic Assessment and plan: Continue current medications; stable Qualifiers: Hypertension type: essential hypertension Qualified Code(s): I10 - Essential (primary) hypertension (5) Elevated troponin Current Visit: Yes Status: Acute Assessment and plan: .24, .55, .54, .46 from 02/02 to 02/03 Cardiology consulted and plan on [facility] as outpatient Patient did have LHC this August which showed 90% stenosis of left PDA, could not proceed with intervention due to coughing spells. Nothing further at this time (6) DVT prophylaxis Current Visit: No Status: Acute Assessment and plan: On SCDs - Time Spent With Patient less than 15 minutes - Subjective Interval history: Patient is seated at bedside on initial encounter. Pain is well-controlled rating 3/10. Patient has questions regarding prospective course concerning chest tubes and air within the pleural cavity. Questions answered for patient. No acute complaints at this time. - Constitutional Vitals: Temp Pulse Resp BP Pulse Ox 97.8 F 100 18 108/61 94 02/11/17 11:58 02/11/17 11:58 02/11/17 11:58 02/11/17 11:58 02/11/17 11:58 General appearance: Present: cooperative, mild distress, pleasant, answers questions appropriately Exam: CONSTITUTIONAL: Alert and oriented X3, well-nourished, well appearing, in no apparent distress HEAD: Normocephalic; atraumatic. EYES: PERRL, no scleral icterus. NOSE: The nose is normal in appearance without rhinorrhea RESP: Normal chest excursion with respiration; breath sounds clear and equal bilaterally; no wheezes, rhonchi, or rales CARD: Regular rhythm, without murmurs, rub or gallop ABD: Non-distended; non-tender, soft,without rigidity, rebound or guarding SKIN: Normal for age and race; warm and dry; no apparent lesions thoracic: chest tube insertion sites are well dressed and are without any erythema or other signs of infection. Internal Medicine: Result - Labs CBC & Chem 7: 02/10/17 03:08 02/11/17 06:46 Labs: BMP 02/11/17 06:46 Sodium 141 Potassium 4.3 Chloride 109 Carbon Dioxide 27 BUN 26 H Creatinine 0.61 Glucose 93 Calcium 8.6 - ABG Interpretation ABG results: PT/INR, D-dimer PT 11.6 Seconds (9.4-12.1) 02/03/17 14:40 - Impressions Impressions Chest X-Ray 02/11/17 06:00 IMPRESSION: Stable small right pneumothorax despite two right-sided chest tubes. D/ / 02/11/2017 07:11:49 Jorge Reinoso MD / [facility] Interpreting Provider: Jorge Reinoso MD - VTE Documentation of Mechanical Device: Intermittent pneumatic compression device Consult Discharge Plan - Plan Referrals: Elias Martinez CNP [Primary Care Provider] - (WALK IN CLINIC THEY MAKE NO APPOINTMENTS) Supriya Wood MD [Partnered Physician] - 03/02/17 1:00 pm Reilly De Luna CNP [Advanced Practice Nurse] - (OFFICE WILL CALL PATIENT AT HOME WITH A FOLLOW UP APPOINTMENT) <Christian Morales - Last Filed: 02/11/17 19:04> Date of Encounter: 02/11/17 - Assessment and plan (1) Pneumothorax, acute Current Visit: Yes Status: Acute (2) CAD (coronary artery disease) Current Visit: Yes Status: Chronic Qualifiers: Coronary Disease-Associated Artery/Lesion type: [place] artery [place] vs. transplanted heart: [place] heart Associated angina: without angina Qualified Code(s): I25.10 - Atherosclerotic heart disease of [place] coronary artery without angina pectoris (3) Acute exacerbation of chronic obstructive airways disease Current Visit: No Status: Acute (4) Hypertension Current Visit: No Status: Chronic Qualifiers: Hypertension type: essential hypertension Qualified Code(s): I10 - Essential (primary) hypertension (5) Non-ischemic cardiomyopathy Current Visit: No Status: Acute (6) Tobacco abuse Current Visit: No Status: Chronic - Constitutional Vitals: Temp Pulse Resp BP Pulse Ox 97.8 F 65 16 109/64 95 02/11/17 15:42 02/11/17 16:14 02/11/17 16:18 02/11/17 16:18 02/11/17 16:18 Internal Medicine: Result - Labs CBC & Chem 7: 02/10/17 03:08 02/11/17 06:46 Labs: BMP 02/11/17 06:46 Sodium 141 Potassium 4.3 Chloride 109 Carbon Dioxide 27 BUN 26 H Creatinine 0.61 Glucose 93 Calcium 8.6 - ABG Interpretation ABG results: PT/INR, D-dimer PT 11.6 Seconds (9.4-12.1) 02/03/17 14:40 - Impressions Impressions Chest X-Ray 02/11/17 06:00 IMPRESSION: Stable small right pneumothorax despite two right-sided chest tubes. D/ / 02/11/2017 07:11:49 Jorge Reinoso MD / [facility] Interpreting Provider: Jorge Reinoso MD - Attending Attestation I examined this patient and my medical decision-making was reviewed with the Resident Physician on 02/11/17. I agree with the documented findings, disposition and treatment plan as described except to the extent set forth below. Ms Kirkland is currently admitted for PTX s/p pleurodesis. She remains moderate to high risk due to potential for worsening resp status. Ms Kirkland feels OK. Her pain is controlled. She has walked around unit and is sleeping OK. No fever or chills. Exam Alert. Comfortable Heart reg Crackles on R. Abd soft No edema I/P 1. PTX 2. COPD Further diagnoses and plan as above.
[2017-02-11] MEDS: Nicotine 21 MG PATCH.TD24 TD SCH (16:10)
[2017-02-11] MEDS: Morphine Sulfate/PF 10mg/10mL 10 MG, Bupivacaine-MPF 0.25% 125 ML in 0.9 % Sodium Chlor... EP SCH (22:12)
[2017-02-12] MEDS: Ipratropium/Albuterol Neb 3 ML IH SCH ×4 (04:56→22:35)
[2017-02-12] MEDS: Sennosides/Docusate Sodium TABLET PO SCH ×2 (07:45→19:54)
[2017-02-12] MEDS: Aspirin 81 MG TAB.CHEW PO SCH (07:46)
[2017-02-12] MEDS: Gabapentin 300 MG CAPSULE PO SCH ×3 (07:47→19:55)
--- NOTE | 2017-02-12 08:52 | Cardiothoracic Progress Note ---
Date of Encounter: 02/12/17 Time of Encounter: 08:50 - Assessment and plan (1) Pneumothorax on right Current Visit: Yes Status: Acute The patient remained relatively stable overnight. She has no respiratory complaints this morning. She will continue with aggressive pulmonary toilet. The chest tubes will remain on suction. She will continue ambulating the hallways today. The assessment and plan as outlined above was discussed with the patient and/or family members who expressed understanding and agreement. All questions were answered. - Subjective Procedure(s) Performed: POD#4 S/P Right thoracotomy with apical bleb resection and mechanical pleurodesis Interval history: The patient remained hemodynamically stable overnight. The epidural continues to work well for postoperative pain control. She has no respiratory complaints. She is ambulating in the hallways without difficulty. Vital Signs, Last 4 Hours Temp Pulse Resp BP Pulse Ox 02/12/17 07:52 59 02/12/17 07:47 97.6 F 94 16 91/56 93 02/12/17 04:56 16 92 Oxgyen Flow Rate Oxygen Flow Rate (LPM) 2 Clinical Data, last 8 Hours Output, Chest Tube Drainage 10 Amount [Right Mid-Axillary Chest #2] Output, Chest Tube Drainage 0 Amount [Right Mid-Axillary Chest #2] Output, Chest Tube Drainage 20 Amount [Right Mid-Axillary Chest #1] Output, Chest Tube Drainage 10 Amount [Right Mid-Axillary Chest #1] Weight 02/10/17 02/11/17 02/12/17 23:59 23:59 23:59 Weight 55.4 kg 57.1 kg - Physical Examination General: Conversant, No Apparent Distress Neck: No JVD, Normal carotid pulses Cardiac: Reg Rate and Rhythm, Normal S1 and S2, No Murmur Incision: No signs of infection, Dry/intact dressing Chest tubes: Minimal drainage, Other (No air leak.) Lungs: Normal Breath Sounds, No Wheeze, Rales, Rhonchi Neuro: Alert and responsive, No focal deficits noted Vascular: Normal capillary refill Extremities: No Clubbing, No Cyanosis, No Edema - Labs 02/10/17 03:08 02/11/17 06:46 - VTE Documentation of Mechanical Device: Intermittent pneumatic compression device Consult Discharge Plan - Plan Referrals: Elias Martinez CNP [Primary Care Provider] - (W[facility] CL[facility]IC THEY MAKE NO APPOINTMENTS) Supriya Wood MD [Partnered Physician] - 03/02/17 1:00 pm Reilly De Luna CNP [Advanced Practice Nurse] - (OFFICE WILL CALL PATIENT AT HOME WITH A FOLLOW UP APPOINTMENT)
[2017-02-12 10:04] LABS: Influenza A PCR Body Fluid NOT DETECTED; Influenza B PCR Body Fluid NOT DETECTED; RSV PCR Body Fluid NOT DETECTED
[2017-02-12] MEDS: Budesonide/Formoterol 80/4.5 MDI IH SCH ×2 (10:26→22:35)
--- NOTE | 2017-02-12 10:34 | Internal Med Progress Note ---
<RickieDerek - Last Filed: 02/12/17 12:44> Date of Encounter: 02/12/17 Time of Encounter: 10:27 - Assessment and plan (1) Pneumothorax, acute Current Visit: Yes Status: Acute Assessment and plan: s/p Thoracotomy, mechanical pleurodesis, and apical bleb resection s/p Epidural per anesthesia for pain related to chest tube Per CTS, will keep chest tube under wall suction until likely Tuesday 02/13 Hemodynamically stable and breathing well on room air continue to follow a CTS; will attend to patients other needs in the interim (2) CAD (coronary artery disease) Current Visit: Yes Status: Chronic Assessment and plan: Chest pain free this morning Continue home ASA, Lipitor, BB, ACEi Qualifiers: Coronary Disease-Associated Artery/Lesion type: [place] artery [place] vs. transplanted heart: [place] heart Associated angina: without angina Qualified Code(s): I25.10 - Atherosclerotic heart disease of [place] coronary artery without angina pectoris (3) Acute exacerbation of COPD with asthma Current Visit: No Status: Acute Assessment and plan: Pt saturating well on room air. Continue with prednisone (tapering) and inhaled albuterol and ipratropium. No changes at this time (4) Hypertension Current Visit: No Status: Chronic Assessment and plan: Continue current medications; stable Qualifiers: Hypertension type: essential hypertension Qualified Code(s): I10 - Essential (primary) hypertension (5) Elevated troponin Current Visit: Yes Status: Acute Assessment and plan: .24, .55, .54, .46 from 02/02 to 02/03 Cardiology consulted and plan on C as outpatient Patient did have LHC this August which showed 90% stenosis of left PDA, could not proceed with intervention due to coughing spells. Nothing further at this time (6) DVT prophylaxis Current Visit: No Status: Acute Assessment and plan: On SCDs - Time Spent With Patient less than 15 minutes - Subjective Interval history: Overnight had issue with [employer] pump which has since resolved. Patient continues to have adequate pain control and has no acute complaints at this time. - Constitutional Vitals: Temp Pulse Resp BP Pulse Ox 97.6 F 59 16 91/56 93 02/12/17 07:47 02/12/17 07:52 02/12/17 07:47 02/12/17 07:47 02/12/17 07:47 General appearance: Present: cooperative, mild distress, pleasant, answers questions appropriately Exam: CONSTITUTIONAL: Alert and oriented X3, well-nourished, well appearing, in no apparent distress HEAD: Normocephalic; atraumatic. EYES: PERRL, no scleral icterus. NOSE: The nose is normal in appearance without rhinorrhea RESP: Normal chest excursion with respiration; breath sounds clear and equal bilaterally; does have scattered expiratory wheezes, however, is receiving neb tx at this time CARD: Regular rhythm, without murmurs, rub or gallop ABD: Non-distended; non-tender, soft,without rigidity, rebound or guarding SKIN: Normal for age and race; warm and dry; no apparent lesions thoracic: chest tube insertion site well dressed and continues to be without any erythema or other signs of infection. Internal Medicine: Result - Labs CBC & Chem 7: 02/10/17 03:08 02/11/17 06:46 Labs: Laboratory Last Values WBC 13.9 K/mcL (4.3-11.1) H 02/10/17 03:08 RBC 3.45 M/mcL (3.82-4.97) L 02/10/17 03:08 Hgb 10.9 g/dL (11.5-15.4) L 02/10/17 03:08 Hct 33.2 % (35.3-44.9) L 02/10/17 03:08 MCV 96.2 fL (83.0-100.0) 02/10/17 03:08 MCH 31.6 pg (28.0-33.3) 02/10/17 03:08 MCHC 32.8 g/dL (31.6-35.5) 02/10/17 03:08 RDW 14.7 % (11.5-14.5) H 02/10/17 03:08 Plt Count 294 K/mcL (140-400) 02/10/17 03:08 MPV 9.3 fL (9.4-12.4) L 02/10/17 03:08 Immature Gran % 0.7 % (0-4) 02/10/17 03:08 Seg Neutrophils % 64.4 % 02/10/17 03:08 Lymphocytes % 22.9 % 02/10/17 03:08 Monocytes % 9.0 % 02/10/17 03:08 Eosinophils % 2.9 % 02/10/17 03:08 Basophils % 0.1 % 02/10/17 03:08 Neutrophils # 9.0 K/mcL (1.6-8.9) H 02/10/17 03:08 Lymphocytes # 3.2 K/mcL (0.6-4.6) 02/10/17 03:08 Monocytes # 1.3 K/mcL (0.0-1.3) 02/10/17 03:08 Eosinophils # 0.4 K/mcL (0.0-0.6) 02/10/17 03:08 Basophils # 0.0 K/mcL (0.0-0.2) 02/10/17 03:08 Immature Plt Fraction 2.3 % (1.1-6.1) 02/09/17 04:07 PT 11.6 Seconds (9.4-12.1) 02/03/17 14:40 INR 1.1 02/03/17 14:40 APTT 53.6 Seconds (26.0-36.0) H 02/04/17 10:53 Sodium 141 mEq/L (136-145) 02/11/17 06:46 Potassium 4.3 mEq/L (3.5-4.5) 02/11/17 06:46 Chloride 109 mEq/L (98-109) 02/11/17 06:46 Carbon Dioxide 27 mEq/L (19-29) 02/11/17 06:46 BUN 26 mg/dL (7-20) H 02/11/17 06:46 Creatinine 0.61 mg/dL (0.57-1.11) 02/11/17 06:46 Est GFR ( Amer) > 60 (> 60) 02/11/17 06:46 Est GFR (Non-Af Amer) > 60 (> 60) 02/11/17 06:46 BUN/Creatinine Ratio 43 (6-26) H 02/11/17 06:46 Glucose 93 mg/dL (70-99) 02/11/17 06:46 POC Glucose 108 (58-89) H 02/08/17 05:29 Calculated Osmolality 296 (280-300) 02/11/17 06:46 Calcium 8.6 mg/dL (8.6-10.8) 02/11/17 06:46 Phosphorus 3.1 mg/dL (2.3-4.7) 02/03/17 04:43 Magnesium 1.9 mg/dL (1.6-2.6) 02/08/17 05:58 Total Bilirubin 0.5 mg/dL (0.2-1.2) 02/03/17 04:43 AST 19 Units/L (5-34) 02/03/17 04:43 ALT 16 Units/L (0-55) 02/03/17 04:43 Alkaline Phosphatase 51 Units/L (38-126) 02/03/17 04:43 Troponin I 0.46 ng/mL (0-0.03) H* 02/03/17 18:33 B-Natriuretic Peptide 18 pg/mL (0-100) 02/02/17 06:15 Serum Total Protein 5.7 g/dL (6.0-8.3) L 02/03/17 04:43 Albumin 3.0 g/dL (3.5-5.0) L 02/03/17 04:43 Globulin 2.7 g/dL (2.4-3.5) 02/03/17 04:43 Albumin/Globulin Ratio 1.1 (1.1-2.2) 02/03/17 04:43 Triglycerides 90 mg/dL (< 150) 02/03/17 04:43 Cholesterol 244 mg/dL (< 200) H 02/03/17 04:43 LDL Cholesterol, Calc 165 mg/dL (0-99) H 02/03/17 04:43 VLDL Cholesterol, Calc 18 mg/dL (< 31) 02/03/17 04:43 HDL Cholesterol 61 mg/dL (40-59) H 02/03/17 04:43 Cholesterol/HDL Ratio 4.0 (0-4.9) 02/03/17 04:43 Fluid Source BAL 02/07/17 13:04 Fluid Volume 17 mL 02/07/17 13:04 Fluid Appearance Cloudy (Clear) A 02/07/17 13:04 Fluid RBC 0.002 M/mcL (No Ref Range) 02/07/17 13:04 Fld Tot Nucleated Cell 1198 TNC/mcL (No Ref Range) 02/07/17 13:04 Fluid Seg Neutrophil % 83.0 % 02/07/17 13:04 Fld Band Neutrophil % Test Not Performed 02/07/17 13:04 Fluid Lymphocytes % 14.0 % 02/07/17 13:04 Fluid Monocytes % 2.0 % 02/07/17 13:04 Fluid Eosinophils % Test Not Performed 02/07/17 13:04 Fluid Basophils % Test Not Performed 02/07/17 13:04 Fluid Other Cells % 1.0 % 02/07/17 13:04 Herpes Simplex Source BAL 02/07/17 13:04 Herpes Simplex DNA PCR NOT DETECTED 02/07/17 13:04 Influenza Type A (PCR) NOT DETECTED 02/07/17 13:04 Influenza Type B (PCR) NOT DETECTED 02/07/17 13:04 RSV (PCR) NOT DETECTED 02/07/17 13:04 - ABG Interpretation ABG results: PT/INR, D-dimer PT 11.6 Seconds (9.4-12.1) 02/03/17 14:40 - VTE Documentation of Mechanical Device: Intermittent pneumatic compression device Consult Discharge Plan - Plan Referrals: Elias Martinez CNP [Primary Care Provider] - (WALK IN CLINIC THEY MAKE NO APPOINTMENTS) Supriya Wood MD [Partnered Physician] - 03/02/17 1:00 pm Reilly De Luna CNP [Advanced Practice Nurse] - (OFFICE WILL CALL PATIENT AT HOME WITH A FOLLOW UP APPOINTMENT) <Christian Morales - Last Filed: 02/12/17 16:46> Date of Encounter: 02/12/17 - Assessment and plan (1) Pneumothorax, acute Current Visit: Yes Status: Acute (2) CAD (coronary artery disease) Current Visit: Yes Status: Chronic Qualifiers: Coronary Disease-Associated Artery/Lesion type: [place] artery [place] vs. transplanted heart: [place] heart Associated angina: without angina Qualified Code(s): I25.10 - Atherosclerotic heart disease of [place] coronary artery without angina pectoris (3) Acute exacerbation of chronic obstructive airways disease Current Visit: No Status: Acute (4) Hypertension Current Visit: No Status: Chronic Qualifiers: Hypertension type: essential hypertension Qualified Code(s): I10 - Essential (primary) hypertension (5) Non-ischemic cardiomyopathy Current Visit: No Status: Acute (6) Tobacco abuse Current Visit: No Status: Chronic - Constitutional Vitals: Temp Pulse Resp BP Pulse Ox 98.0 F 72 18 105/58 92 02/12/17 15:25 02/12/17 15:25 02/12/17 15:25 02/12/17 15:25 02/12/17 15:25 Internal Medicine: Result - Labs CBC & Chem 7: 02/10/17 03:08 02/11/17 06:46 - ABG Interpretation ABG results: PT/INR, D-dimer PT 11.6 Seconds (9.4-12.1) 02/03/17 14:40 - Attending Attestation I examined this patient and my medical decision-making was reviewed with the Resident Physician on 02/12/17. I agree with the documented findings, disposition and treatment plan as described except to the extent set forth below. Ms Kirkland is currently admitted for acute PTX s/p pleurodesis. She remains moderate to high risk due to potential for worsening respiratory status. Ms Saenz slept OK. Her pain is currently controlled. Tolerating chest tubes. No fever or chills. Has been up walking some. No GI issues. Exam Alert. Comfortable Heart reg Crackles heard R side Abd soft No edema I/P 1. PTX 2. COPD Further diagnoses and plan as above.
[2017-02-12] MEDS: Nicotine 21 MG PATCH.TD24 TD SCH (17:04)
[2017-02-12] MEDS: 0.9 % Sodium Chloride w KCl 20 MEQ/1,000 ML MLS IVC SCH (19:43)
[2017-02-12] MEDS: *HR* OxyCODONE/APAP 5/325 TABLET PO PRN (19:54)
[2017-02-13] MEDS: Ipratropium/Albuterol Neb 3 ML IH SCH ×4 (04:08→21:07)
[2017-02-13] MEDS: Aspirin 81 MG TAB.CHEW PO SCH (08:36)
[2017-02-13] MEDS: Gabapentin 300 MG CAPSULE PO SCH ×3 (08:36→22:21)
[2017-02-13] MEDS: Sennosides/Docusate Sodium TABLET PO SCH (08:39)
--- NOTE | 2017-02-13 09:47 | Cardiothoracic Progress Note ---
Date of Encounter: 02/13/17 Time of Encounter: 09:45 - Assessment and plan (1) Pneumothorax on right Current Visit: Yes Status: Acute The patient remained relatively stable overnight. She has no respiratory complaints this morning. She will continue with aggressive pulmonary toilet. The chest tubes were removed. She will continue ambulating the hallways today. The epidural will be removed patient may be transitioned to oral analgesics prior to discharge. The assessment and plan as outlined above was discussed with the patient and/or family members who expressed understanding and agreement. All questions were answered. - Subjective Procedure(s) Performed: POD#5 S/P Right thoracotomy with apical bleb resection and mechanical pleurodesis Interval history: The patient remained hemodynamically stable overnight. The epidural continues to work well for postoperative pain control. She has no respiratory complaints. She is ambulating in the hallways without difficulty. Vital Signs, Last 4 Hours Temp Pulse Resp BP Pulse Ox 02/13/17 08:40 77 02/13/17 07:21 98.0 F 61 18 103/49 94 Oxgyen Flow Rate Oxygen Flow Rate (LPM) 0 Clinical Data, last 8 Hours Output, Chest Tube Drainage 10 Amount [Right Mid-Axillary Chest #2] Output, Chest Tube Drainage 30 Amount [Right Mid-Axillary Chest #2] Output, Chest Tube Drainage 10 Amount [Right Mid-Axillary Chest #1] Output, Chest Tube Drainage 20 Amount [Right Mid-Axillary Chest #1] Output, Urine Amount 400 Weight 02/11/17 02/12/17 02/13/17 23:59 23:59 23:59 Weight 57.1 kg 58.5 kg - Physical Examination General: Conversant, No Apparent Distress Neck: No JVD, Normal carotid pulses Cardiac: Reg Rate and Rhythm, Normal S1 and S2, No Murmur Incision: No signs of infection, Dry/intact dressing Chest tubes: Minimal drainage, Other (No air leak.) Lungs: Normal Breath Sounds, No Wheeze, Rales, Rhonchi Neuro: Alert and responsive, No focal deficits noted Vascular: Normal capillary refill Extremities: No Clubbing, No Cyanosis, No Edema - Labs 02/10/17 03:08 02/11/17 06:46 - Imaging Chest Xray: image reviewed (Small right lateral pneumothorax, unchanged.) - VTE Documentation of Mechanical Device: Intermittent pneumatic compression device Consult Discharge Plan - Plan Referrals: Artrip,Elias, [employer] [Primary Care Provider] - (WALK IN CLINIC THEY MAKE NO APPOINTMENTS) Supriya Wood MD [Partnered Physician] - 03/02/17 1:00 pm Reilly De Luna CNP [Advanced Practice Nurse] - (OFFICE WILL CALL PATIENT AT HOME WITH A FOLLOW UP APPOINTMENT)
[2017-02-13] MEDS: Budesonide/Formoterol 80/4.5 MDI IH SCH ×2 (10:43→21:07)
[2017-02-13] MEDS: Morphine Sulfate/PF 10mg/10mL 10 MG, Bupivacaine-MPF 0.25% 125 ML in 0.9 % Sodium Chlor... EP SCH ×2 (12:11→12:12)
[2017-02-13] MEDS: 0.9 % Sodium Chloride w KCl 20 MEQ/1,000 ML MLS IVC SCH (12:12)
[2017-02-13] MEDS ORDERED: Sennosides/Docusate Sodium TABLET PO PRN (15:45)
[2017-02-13] MEDS: Nicotine 21 MG PATCH.TD24 TD SCH (16:55)
[2017-02-13] MEDS: *HR* OxyCODONE/APAP 5/325 TABLET PO PRN ×2 (16:59→22:21)
--- NOTE | 2017-02-13 17:38 | Internal Med Progress Note ---
<NellyCole Cesario - Last Filed: 02/13/17 17:35> Date of Encounter: 02/13/17 Time of Encounter: 17:35 - Assessment and plan (1) Pneumothorax, acute Current Visit: Yes Status: Acute Assessment and plan: Status post thoracotomy, mechanical pleurodesis, and apical bleb resection. Chest tubes were removed today without complication. Cardiothoracic surgery is following. (2) CAD (coronary artery disease) Current Visit: Yes Status: Chronic Assessment and plan: Chest pain free. Continue home ASA, Lipitor, BB, ACEi Qualifiers: Coronary Disease-Associated Artery/Lesion type: [place] artery [place] vs. transplanted heart: [place] heart Associated angina: without angina Qualified Code(s): I25.10 - Atherosclerotic heart disease of [place] coronary artery without angina pectoris (3) Hypertension Current Visit: No Status: Chronic Assessment and plan: Stable. Continue home medications. Qualifiers: Hypertension type: essential hypertension Qualified Code(s): I10 - Essential (primary) hypertension - Subjective Interval history: Patient seen and examined at bedside. She has no complaints at this time. Chest tubes removed today. She has minimal pain at her chest tube sites. She denies chest pain, shortness of breath, cough. - Constitutional Vitals: Temp Pulse Resp BP Pulse Ox 98.8 F 84 22 95/46 90 02/13/17 15:09 02/13/17 15:21 02/13/17 16:22 02/13/17 15:09 02/13/17 16:22 General appearance: Present: cooperative, mild distress, pleasant, answers questions appropriately - Respiratory Respiratory exam: Present: decreased breath sounds. Absent: rales, rhonchi, wheezes Additional comments: Chest tubes have been removed - Cardiovascular Cardiovascular exam: Present: RRR. Absent: gallop, rubs, systolic murmur - GI/Abdominal GI/Abdominal exam: Present: normal bowel sounds, soft. Absent: distended, tenderness - Extremities Exam Extremities exam: Present: warm. Absent: pedal edema, tenderness - Neurological Exam Neurological exam: Present: alert, CN II-XII intact, oriented X3, no focal deficits Internal Medicine: Result - Labs CBC & Chem 7: 02/10/17 03:08 02/11/17 06:46 - ABG Interpretation ABG results: PT/INR, D-dimer PT 11.6 Seconds (9.4-12.1) 02/03/17 14:40 - Impressions Impressions Chest X-Ray 02/13/17 06:00 IMPRESSION: Stable chest with a small loculated pneumothorax on the right and minimal left basilar airspace disease. D/ / Zain Morales MD / Zain Morales MD Interpreting Provider: Zain Morales MD Chest X-Ray 02/13/17 09:47 IMPRESSION: Interval removal of two right chest tubes with presence of a tiny right apical pneumothorax. New small right pleural effusion. Stable small left pleural effusion. D/ / 02/13/2017 10:20:50 Brennen Jimenez MD / sabra Interpreting Provider: Brennen Jimenez MD - VTE Documentation of Mechanical Device: Intermittent pneumatic compression device Consult Discharge Plan - Plan Referrals: Elias Martinez CNP [Primary Care Provider] - (WALK IN CLINIC THEY MAKE NO APPOINTMENTS) Supriya Wood MD [Partnered Physician] - 03/02/17 1:00 pm Reilly De Luna CNP [Advanced Practice Nurse] - (OFFICE WILL CALL PATIENT AT HOME WITH A FOLLOW UP APPOINTMENT) <Christian Morales - Last Filed: 02/13/17 18:07> Date of Encounter: 02/13/17 - Assessment and plan (1) Pneumothorax, acute Current Visit: Yes Status: Acute (2) CAD (coronary artery disease) Current Visit: Yes Status: Chronic Qualifiers: Coronary Disease-Associated Artery/Lesion type: [place] artery [place] vs. transplanted heart: [place] heart Associated angina: without angina Qualified Code(s): I25.10 - Atherosclerotic heart disease of [place] coronary artery without angina pectoris (3) Acute exacerbation of chronic obstructive airways disease Current Visit: No Status: Acute (4) Hypertension Current Visit: No Status: Chronic Qualifiers: Hypertension type: essential hypertension Qualified Code(s): I10 - Essential (primary) hypertension (5) Non-ischemic cardiomyopathy Current Visit: No Status: Acute (6) Tobacco abuse Current Visit: No Status: Chronic - Constitutional Vitals: Temp Pulse Resp BP Pulse Ox 98.8 F 84 22 95/46 90 02/13/17 15:09 02/13/17 15:21 02/13/17 16:22 02/13/17 15:09 02/13/17 16:22 Internal Medicine: Result - Labs CBC & Chem 7: 02/10/17 03:08 02/11/17 06:46 - ABG Interpretation ABG results: PT/INR, D-dimer PT 11.6 Seconds (9.4-12.1) 02/03/17 14:40 - Impressions Impressions Chest X-Ray 02/13/17 06:00 IMPRESSION: Stable chest with a small loculated pneumothorax on the right and minimal left basilar airspace disease. D/ / Zain Morales MD / Zain Morales MD Interpreting Provider: Zain Morales MD Chest X-Ray 02/13/17 09:47 IMPRESSION: Interval removal of two right chest tubes with presence of a tiny right apical pneumothorax. New small right pleural effusion. Stable small left pleural effusion. D/ / 02/13/2017 10:20:50 Brennen Jimenez MD / sabra Interpreting Provider: Brennen Jimenez MD - Attending Attestation I examined this patient and my medical decision-making was reviewed with the Resident Physician on 02/13/17. I agree with the documented findings, disposition and treatment plan as described except to the extent set forth below. Ms Kirkland is currently admitted for PTX s/p thoracotomy and pleurodesis. She remains moderate to high risk due to potential for worsening respiratory status. Ms. Kirkland had chest tubes removed today. So far she is doing OK. Pain is controlled. No fever or chills. No GI issues. Exam Alert. Comfortable Heart reg Lungs clearer today Abd soft No edema I/P 1. PTX s/p thoracotomy and pleurodesis - CT out today 2. COPD Further diagnoses and plan as above.
[2017-02-13] MEDS: *HR* HYDROmorphone (PF) 1 MG/ML SYRINGE IVP PRN ×2 (19:47→23:29)
[2017-02-14] MEDS: Ipratropium/Albuterol Neb 3 ML IH SCH ×3 (03:51→16:17)
[2017-02-14] MEDS: *HR* OxyCODONE/APAP 5/325 TABLET PO PRN (05:25)
[2017-02-14] MEDS: Aspirin 81 MG TAB.CHEW PO SCH (09:03)
[2017-02-14] MEDS: Gabapentin 300 MG CAPSULE PO SCH (09:04)
[2017-02-14] MEDS: *HR* OxyCODONE/APAP 7.5/325 TABLET PO PRN ×2 (09:04→13:04)
[2017-02-14 09:16] LABS: Basophils # 0.1 K/mcL (0.0-0.2); Basophils % 0.5 %; Eosinophils # 1.1 K/mcL (0.0-0.6); Eosinophils % 6.9 %; Hemoglobin 12.4 g/dL (11.5-15.4); Immature Granulocytes % 1.7 % (0-4); Lymphocytes % 19.1 %; Mean Corpuscular HGB Conc 33.5 g/dL (31.6-35.5); Mean Corpuscular Hemoglobin 31.7 pg (28.0-33.3); Mean Corpuscular Volume 94.6 fL (83.0-100.0); Mean Platelet Volume 8.9 fL (9.4-12.4); Monocytes # 1.1 K/mcL (0.0-1.3); Monocytes % 7.4 %; Platelet Count 366 K/mcL (140-400); Red Blood Count 3.91 M/mcL (3.82-4.97); Red Cell Distribution Width 14.6 % (11.5-14.5); Segmented Neutrophils % 64.4 %
[2017-02-14 09:27] LABS: BUN/Creatinine Ratio 22 (6-26); Blood Urea Nitrogen 14 mg/dL (7-20); Calcium 9.1 mg/dL (8.6-10.8); Carbon Dioxide 30 mEq/L (19-29); Chloride 104 mEq/L (98-109); Glucose 87 mg/dL (70-99); Osmolality,Calculated 294 (280-300); Potassium 4.3 mEq/L (3.5-4.5); Sodium 142 mEq/L (136-145); eGFR For African Americans > 60 (> 60); eGFR For Non-African Americans > 60 (> 60)
--- NOTE | 2017-02-14 09:29 | Cardiothoracic Progress Note ---
Date of Encounter: 02/14/17 Time of Encounter: 09:28 - Assessment and plan (1) Acute respiratory failure Current Visit: No Status: Acute The patient is okay for discharge from my standpoint. She should see Dr. Wood in the office in 4 weeks for a postoperative check. Qualifiers: Respiratory failure complication: hypoxia Qualified Code(s): J96.01 - Acute respiratory failure with hypoxia - Subjective Interval history: The patient complains of moderate postoperative pain. Vital Signs, Last 4 Hours Temp Pulse Resp BP Pulse Ox 02/14/17 07:23 97.8 F 72 16 139/77 92 Oxgyen Flow Rate Oxygen Flow Rate (LPM) 0 Weight 02/12/17 02/13/17 02/14/17 23:59 23:59 23:59 Weight 57.1 kg 58.5 kg Lungs are clear to percussion and auscultation. Heart is in a normal sinus rhythm. Her incision is healing well without signs of infection. - Labs 02/10/17 03:08 02/14/17 08:51 Lab Results, Last 24 hours 02/14/17 08:51 Sodium 142 Potassium 4.3 Chloride 104 Carbon Dioxide 30 H BUN 14 Creatinine 0.64 Glucose 87 Calcium 9.1 Magnesium 2.0 - VTE Documentation of Mechanical Device: Intermittent pneumatic compression device Consult Discharge Plan - Plan Referrals: Elias Martinez CNP [Primary Care Provider] - (WALK IN CLINIC THEY MAKE NO APPOINTMENTS) Supriya Wood MD [Partnered Physician] - 03/02/17 1:00 pm Reilly De Luna CNP [Advanced Practice Nurse] - (OFFICE WILL CALL PATIENT AT HOME WITH A FOLLOW UP APPOINTMENT)
--- NOTE | 2017-02-14 10:26 | Anesthesia Procedures ---
Date of Encounter: 02/13/17 Time of Encounter: 14:30 Procedures: Anesthesia - Epidural Rounding Post Op Day #: 5 Procedure: thoracotomy Pain Control: Good Breakthrough Pain Meds: No Mental Status: awake Catheter Site Dressing Intact: Yes Erythema: No Pruritus: not present Signs of Infection At Catheter Site: No Plan: Remove Epidural Catheter Epidural Catheter removed; Tip Intact: Yes
[2017-02-14] MEDS: Budesonide/Formoterol 80/4.5 MDI IH SCH (10:55)
--- NOTE | 2017-02-14 11:56 | Discharge Summary ---
Addendum entered and electronically signed by Lee Muniz DO 02/14/17 13:33 : patient was checked for oxygen qualification at home and did not qualify Original Note: <Lee Muniz - Last Filed: 02/14/17 12:58> Date of Encounter: 02/14/17 Time of Encounter: 11:03 - Discharge Diagnosis (1) Pneumothorax, acute Priority: Primary Status: Acute (2) CAD (coronary artery disease) Priority: Secondary Status: Chronic Qualifiers: Coronary Disease-Associated Artery/Lesion type: [place] artery [place] vs. transplanted heart: [place] heart Associated angina: without angina Qualified Code(s): I25.10 - Atherosclerotic heart disease of [place] coronary artery without angina pectoris (3) Acute respiratory failure Priority: Secondary Status: Acute Qualifiers: Respiratory failure complication: hypoxia Qualified Code(s): J96.01 - Acute respiratory failure with hypoxia (4) Elevated troponin Priority: Secondary Status: Acute (5) Hypertension Priority: Secondary Status: Chronic Qualifiers: Hypertension type: essential hypertension Qualified Code(s): I10 - Essential (primary) hypertension (6) Tobacco abuse Priority: Secondary Status: Chronic (7) DVT prophylaxis Priority: Secondary Status: Acute - Discharge Medications Prescriptions: Budesonide/Formoterol 80/4.5 [Symbicort 80/4.5] 2 puff IH BIDR 30 Days #1 inhaler Docusate [Colace] 100 mg PO BID PRN #60 capsule PRN Reason: Constipation Nicotine Patch [Nicoderm] 21 mg TD Q24H #14 patch.td24 OxyCODONE/APAP 7.5/325 [Percocet 7.5/325 MG] 1 each PO Q6H PRN #28 tablet PRN Reason: Moderate Pain Tiotropium [Spiriva] 18 mcg IH 0700 30 Days #1 aerosol Home Medications: Albuterol Sulfate [Albuterol Inhaler] 2 puff IH Q6HR PRN 09/14/16 [History] Amitriptyline [Elavil] 25 mg PO DAILY 09/14/16 [History] Estradiol [Estrace] 1 mg PO DAILY 09/14/16 [History] Gabapentin [Neurontin] 300 mg PO TID 09/14/16 [History] Progesterone,Micronized [Progesterone] 200 mg PO DAILY 09/14/16 [History] Aspirin 81 mg PO DAILY #60 tab.chew 09/17/16 [Rx] Atorvastatin [Lipitor] 80 mg PO HS #60 tablet 09/17/16 [Rx] Carvedilol [Coreg] 3.125 mg PO BIDWM #60 tablet 09/17/16 [Rx] Lisinopril [Zestril] 2.5 mg PO DAILY #60 tablet 09/17/16 [Rx] Budesonide/Formoterol 80/4.5 [Symbicort 80/4.5] 2 puff IH BIDR 30 Days #1 inhaler 02/14/17 [Rx] Docusate [Colace] 100 mg PO BID PRN #60 capsule 02/14/17 [Rx] Nicotine Patch [Nicoderm] 21 mg TD Q24H #14 patch.td24 02/14/17 [Rx] OxyCODONE/APAP 7.5/325 [Percocet 7.5/325 MG] 1 each PO Q6H PRN #28 tablet [Rx] Tiotropium [Spiriva] 18 mcg IH 0700 30 Days #1 aerosol 02/14/17 [Rx] Allergies/Adverse Reactions: 3 Allergy/AdvReac Type Severity Reaction Status Date / Time No Known Allergies Allergy Verified 09/13/16 18:14 Date of admission: 02/02/17 07:30 Primary care physician: Elias Martinez CNP Consults: 02/02/17 09:45 Consult to Pulmonology [CONS] Routine Consulting Provider: Pulm Crit Care & Sleep Negin Reason for Consult: PTX right sided. Call Completed: Yes 02/03/17 11:29 Consult to Interventional Radiology [CONS] Stat Consulting Provider: Radiology Interventional Cols Reason for Consult: Worsening Pneumothorax Call Completed: Yes 02/03/17 14:22 Consult to Cardiology [CONS] Routine Comment: Consulting Provider: Cardiology Show Low Reason for Consult: NSTEMI, h/o severe one vessel disease without stent Time Notified: 14:23 Call Completed: Yes 02/06/17 09:52 Consult to Cardiothoracic Surgery [CONS] Routine Consulting Provider: Cardiothoracic Surgery Negin Reason for Consult: persistent pneumothorax Time Notified: 09:52 Call Completed: Yes Discharging clinician: Lee Muniz Anticipated date of discharge: 02/14/17 - Patient Status Disposition: Home, Self-Care Condition: Good Functional capacity at discharge: independent ambulation Overall status at discharge: patient is progressing back to baseline - Discharge Instructions Instructions: Oxycodone/Acetaminophen (By mouth), Nicotine (Into the mouth), Tiotropium (By breathing), Budesonide/Formoterol (By breathing), Spontaneous Pneumothorax (DC), How to Stop Smoking (DC), Thoracotomy (DC) Follow Up With: Elias Martinez CNP [Primary Care Provider] - (WALK IN CLINIC THEY MAKE NO APPOINTMENTS) Supriya Wood MD [Partnered Physician] - 03/02/17 1:00 pm Reilly De Luna CNP [Advanced Practice Nurse] - 03/06/17 10:00 am () Narayan Hadley MD [Partnered Physician] - Additional Instructions: Follow up with you primary care provider within one week of discharge Follow up with cardiology follow up with pulmonology Follow up with Dr. Wood with cardiothoracic surgery take all med as prescribed if you develop fever, chills, shortness of breath, chest pain, please report to emergency department immediately. No lifting more than 10lbs x 1 month No driving for 1 month No tub baths - Diet and Activity Activity: increase activity as tolerated Diet: low fat, low cholesterol Hospital course: Ms. Kirkland is a 56 year old female with PMHx of HTN, CAD, HLD, COPD. patient arrived to [facility] on 02/02/17 with CC of shontess of breath. she was found ot have a spontaneous pneumothorax, likely seondary to COPD and was admitted. CXR showed moderate right pneumothorax measuring 4cm. Pulmonology and cardiothoracic surgery were consulted. Per pulm recommendations, her oxygen sats were kept between 88-92%. She received aggressive bronchopulmonary toileting. she was treated with steroids and antimicrobial therap during her hospitalization. Patient had bronchoscopy done by pulmonology and cytology was negative for malignant cells and microbiology was also negative. she will follow up in pulmonary clinic outpatient. on 02/08/17, Patient had right posterior lateral thoracotomy with left lower lobe bleb resection and mechanical pleurodesis. she had chest tubes placed and continued to do well. Cardiology was also consulted due to elevated troponins. They recommended cardiac catheterization, but it was not done inpatient because she was considered high risk from a cardiac standpoint. recommendation was to do LHC as outpatient. The day before her discharge, patient had chest tubes removed without complications. she remained stable throughout the course of her hospitalization and had no acute events. she will be discharged on anti- muscarinics and long acting beta agonists per pulm recommendations. patient had elevated WBC of 15.5 on day of dishcarge, but no source of infection could be found and this was likely reactive. she was specifically instructed to come to ED if she developed fever, chills, chest pain, or shortness of breath. patient was discharged from the hospital in stable condition. Plan: Follow up with you primary care provider within one week of discharge Follow up with cardiology follow up with pulmonology Follow up with Dr. Wood with cardiothoracic surgery take all med as prescribed if you develop fever, chills, shortness of breath, chest pain, please report to emergency department immediately. - Time Spent with Patient Total time spent providing and/or coordinating discharge services: - Constitutional Vitals: Temp Pulse Resp BP Pulse Ox 97.8 F 72 16 139/77 92 02/14/17 07:23 02/14/17 07:23 02/14/17 07:23 02/14/17 07:23 02/14/17 07:23 General appearance: Present: cooperative, mild distress, pleasant, answers questions appropriately - Head Head exam: Present: atraumatic, normocephalic - Neck Neck exam general surgery: Present: supple, trachea midline - Respiratory Respiratory exam: Present: CTAB - Cardiovascular Cardiovascular exam: Present: RRR, +S1, +S2 - GI/Abdominal GI/Abdominal exam: Present: normal bowel sounds, soft. Absent: distended, tenderness - Extremities Exam Extremities exam: Absent: cyanotic, pedal edema - Back Exam Additional comments: chest tube site does not look infected. no erythema or swelling noted. - Neurological Exam Neurological exam: Present: alert, oriented X3, no focal deficits - Psychiatric Psychiatric exam: Present: normal affect, normal mood - Skin Skin exam: Present: intact - VTE Documentation of Mechanical Device: Intermittent pneumatic compression device <Sylvia Connolly - Last Filed: 02/14/17 17:53> Date of Encounter: 02/14/17 Date of admission: 02/02/17 07:30 Primary care physician: Elias Martinez CNP Consults: 02/02/17 09:45 Consult to Pulmonology [CONS] Routine Consulting Provider: Pulm Crit Care & Sleep Negin Reason for Consult: PTX right sided. Call Completed: Yes 02/03/17 11:29 Consult to Interventional Radiology [CONS] Stat Consulting Provider: Radiology Interventional Cols Reason for Consult: Worsening Pneumothorax Call Completed: Yes 02/03/17 14:22 Consult to Cardiology [CONS] Routine Comment: Consulting Provider: Cardiology Negin Reason for Consult: NSTEMI, h/o severe one vessel disease without stent Time Notified: 14:23 Call Completed: Yes 02/06/17 09:52 Consult to Cardiothoracic Surgery [CONS] Routine Consulting Provider: Cardiothoracic Surgery Negin Reason for Consult: persistent pneumothorax Time Notified: 09:52 Call Completed: Yes - Patient Status Functional capacity at discharge: independent ambulation Overall status at discharge: patient is back to baseline Hospital course: Ms. Kirkland is a 56 year old female - Time Spent with Patient Total time spent providing and/or coordinating discharge services: - Constitutional Vitals: Temp Pulse Resp BP Pulse Ox 97.9 F 73 16 125/79 93 02/14/17 11:25 02/14/17 11:25 02/14/17 16:19 02/14/17 11:25 02/14/17 16:19 - Attending Attestation Patient is a 56-year-old female with past medical history of hypertension, CAD, hyperlipidemia, COPD, who was admitted for acute respiratory failure secondary to spontaneous pneumothorax. She was followed by cardiothoracic surgery and had right posterior lateral thoracotomy with left lower lobe bleb resection and mechanical pleurodesis. She had chest tube placed after the procedure. Patient tolerated the procedure well and continued to improve after the procedure. She was also noted to have elevated troponin due to which cardiology was consulted. Left heart catheterization was recommended on an outpatient basis by cardiology and no acute intervention was recommended. Patient's chest tubes have been removed, saturating well on room air, and did not qualify for home oxygen therapy. She is currently hemodynamically stable and will be discharged to home with follow-up with cardiology, pulmonology, cardiothoracic surgery, and primary care physician. She was independently seen and examined prior to discharge. Case was discussed with resident physician Lee Muniz, I agree with her documented findings, assessment, and plan, except as listed above.
[2017-02-15 05:06] VITALS: BP 127/75
== END 2017-02-14 18:30 | disposition home or self-care (01) | DRG 163 ==
LOC: EMEROO 05:57 → 2NENU 07:30 → SUATTDRO 07:30 → 2NENU 10:01 → 2NNU 14:06
PROVIDERS: ADMIT Internal Medicine; ATTEND Internal Medicine